=== PATIENT | male | born 1955 | race Caucasian/White ===

== ENCOUNTER 2018-01-05 17:22 | Inpatient (IN) | payer OTHER ==
--- NOTE | 2018-01-05 17:37 | PDOC ---
Rapid Medical Evaluation Chief Complaint: Wound Time Seen by Provider: 01/05/18 17:26 Medical Evaluation: Allergies Allergy/AdvReac Type Severity Reaction Status Date / Time No Known Allergies Allergy Verified 01/05/18 17:27 01/05/18 17:28 Pt presents with cough from hyperbaric chamber. States the cough has been going on for two months . Pt also with worsening R foot wound Exam: Towel covering R foot, Oral temp 100.2. HR 99 Orders: Labs, EKG, CXR, wound culture, urine, iv insert Pt to proceed to ED for further evaluation Discharge Disposition - Diagnosis Cough, Diabetic foot ulcers, Fever - Referrals - Patient Instructions - Post Discharge Activity
[2018-01-05 17:41] VITALS: BMI 27.7
[2018-01-05 18:16] LABS: BASO % 0.5 % (0-2.0); EOS % 0.2 % (0-4.5); HEMATOCRIT 33.3 % (35.4-49); HEMOGLOBIN 11.2 GM/dL (11.7-16.9); MCH 27.3 pg (25.7-33.7); MCHC 33.6 g/dl (32.0-35.9); MEAN CELL VOLUME 81.4 fl (80-96); MEAN PLT VOLUME 8.7 fl (7.5-11.1); MONO % 8.7 % (3.8-10.2); NEUT % 82.6 % (42.8-82.8); PLATELET COUNT 433 K/MM3 (134-434); RDW 14.1 % (11.9-15.9); WHITE BLOOD COUNT 13.3 K/mm3 (4.0-10.0)
[2018-01-05 18:24] LABS: INR 1.16 (0.83-1.09); PROTHROMBIN TIME (PATIENT) 13.1 SEC (9.7-13.0)
[2018-01-05 18:32] LABS: ALK PHOS 84 U/L (45-117); ANION GAP 10 MMOL/L (8-16); BILIRUBIN,TOTAL 0.3 mg/dL (0.2-1.0); BLOOD UREA NITROGEN 17 mg/dL (7-18); CALCIUM 8.5 mg/dL (8.5-10.1); CHLORIDE 99 mmol/L (98-107); CO2 25 mmol/L (21-32); CREATININE 0.7 mg/dL (0.7-1.3); GLUCOSE,RANDOM 149 mg/dL (74-106); POTASSIUM 4.4 mmol/L (3.5-5.1); SGOT/AST 10 U/L (15-37); SGPT/ALT 15 U/L (12-78); SODIUM 134 mmol/L (136-145); TOT PROT 7.8 g/dl (6.4-8.2)
--- NOTE | 2018-01-05 20:23 | PDOC ---
Attending Attestation - [facility] HPI: 01/05/18 20:48 Patient is a 62 year old male with a significant past medical history of IDDM and neuropathy who presents to the ED with complaints of chronic right lower extremity foot wounds that began to develop earlier this month. Patient reports experiencing chronic wound on his right foot that he states has been gradually increasing in warmth and erythema over time prompting him to go to the wound care center for it. He reports wound care center advising him to come into the ED for further evaluation of the extremity. Patient reports experiencing associated symptoms of low grade fever of 100.2 and non productive cough. Denies chest pain, Sob. Denies nausea, vomiting. Denies fevers, chills. Denies Contact with sick individuals, out of state travelling. Denies dysuria, hematuria. Denies constipation, diarrhea. Denies any other Allergies: None Social history: No smoking. No alcohol. No illicit drugs. Surgical history: None PMD: None - Physicial Exam PE: 01/06/18 01:46 GENERAL: Well developed, well nourished. Awake and alert. No acute distress. HEENT: Normocephalic, atraumatic. Hearing grossly normal. Moist mucous membranes. PERRLA, EOMI. No conjunctival pallor. Sclera are non-icteric. NECK: Supple. Full ROM. No JVD. CARDIOVASCULAR: Regular rate and rhythm. No murmurs, rubs, or gallops. Distal pulses are 2+ and symmetric. PULMONARY: No evidence of respiratory distress. Lungs clear to auscultation bilaterally. No wheezing, rales or rhonchi. ABDOMINAL: Soft. Non-tender. Non-distended. No rebound or guarding. GENITOURINARY: No CVA tenderness bilaterally. MUSCULOSKELETAL: Normal range of motion at all joints. No bony deformities or tenderness. EXTREMITIES: R foot with 3 foot wounds, stage 2-3, all 1-2cm's in diameter. 3+ pitting edema in R LE w/ calf tenderness. No cyanosis. No clubbing. SKIN: Warm and dry. Normal capillary refill. No rashes. No jaundice. NEUROLOGICAL: Alert, awake, appropriate. Cranial nerves 2-12 intact. Normal speech. Gait is normal without ataxia. PSYCHIATRIC: Cooperative. Good eye contact. Appropriate mood and affect. <John Zelaya - Last Filed: 01/06/18 01:46> - Resident Resident Name: Alvin Davidson - ED Attending Attestation I have performed the following: I have examined & evaluated the patient, The case was reviewed & discussed with the resident, I agree w/resident's findings & plan, Exceptions are as noted - Medical Decision Making 01/06/18 03:00 Pt admitted for further evaluation and care <Jacob Gomez - Last Filed: 01/06/18 03:01>
[2018-01-05] MEDS ORDERED: PIPERACILLIN/TAZOB 3.375 GM 3.375 GM in DEXTROSE 5%-WATER - 50 ML IVPB ONE (20:25)
[2018-01-05] MEDS ORDERED: SODIUM CHLORIDE 0.9% 1000 ML INFUS.BAG IV ONE (20:25)
[2018-01-05] MEDS ORDERED: VANCOMYCIN 1,000 MG in DEXTROSE 5%-WATER - 250 ML IVPB ONE (20:25)
[2018-01-05 20:47] LABS: URINE APPEARANCE CLEAR; URINE BILIRUBIN NEGATIVE (<2.0 mg/dL); URINE COLOR YELLOW; URINE GLUCOSE (UA) 2+ (NEGATIVE); URINE KETONE TRACE (NEGATIVE); URINE LEUK ESTERASE NEGATIVE (NEGATIVE); URINE NITRITE NEGATIVE (NEGATIVE); URINE PROTEIN NEGATIVE (NEGATIVE); URINE UROBILINOGEN NEGATIVE mg/dL (0.2-1.0)
--- NOTE | 2018-01-05 20:58 | PDOC ---
History of Present Illness - General Chief Complaint: Wound Stated Complaint: FEVER Time Seen by Provider: 01/05/18 17:26 History Source: Patient Exam Limitations: No Limitations - History of Present Illness Initial Comments: 01/05/18 20:57 The patient is a 62M with a PMH of DM, chronic R foot wounds, and neuropathy who presents to the ER with complaints of cough and fever. The patient states that he's had a cough x 1 month which he tried 2 medications for which he is unsure about, but the cough "came back with a vengeance". He states that he was going to his hyperbarics appointment today when they took his vitals and noted a fever of 101.2 and they sent him to the ER. He has chronic R foot wounds which he states he is unsure of the status of. He admits to fever, chills, SOB but denies CP, nausea, vomiting, abdominal pain and throat pain. Past History - Past Medical History Allergies/Adverse Reactions: Allergies Allergy/AdvReac Type Severity Reaction Status Date / Time No Known Allergies Allergy Verified 01/05/18 17:27 Home Medications: Ambulatory Orders Insulin Glargine,Hum.rec.anlog [Basaglar Kwikpen U-100] 42 units SQ HS 01/01/18 Lactobacillus Acidophilus [Bacid -] 1 cap PO BID 01/01/18 Omeprazole Magnesium [Prilosec Otc] 20 mg PO DAILY 01/01/18 Acetaminophen [Tylenol] 650 mg PO Q6H PRN 01/05/18 Ascorbic Acid [Vitamin C] 500 mg PO DAILY 01/05/18 Azelastine HCl 137 mcg NS BID 01/05/18 Cranberry Fruit Extract [Cranberry] 405 mg PO DAILY 01/05/18 Insulin Lispro [Admelog Solostar] 0 unit SQ ASDIR 01/05/18 Mag Hydrox/Al Hydrox/Simeth [Mylanta *Suspension*] 30 ml PO Q6H PRN 01/05/18 Multivitamin [One Daily] 1 each PO DAILY 01/05/18 COPD: No DVT: No Diabetes: Yes HTN: Yes Other medical history: RT HEARING LOSS - Immunization History Immunization Up to Date: Yes - Suicide/Smoking/Psychosocial Hx Smoking History: Never smoked Hx Alcohol Use: No Drug/Substance Use Hx: No Substance Use Type: None Review of Systems - Review of Systems Able to Perform ROS?: Yes Comments:: 01/05/18 23:19 GENERAL/CONSTITUTIONAL: Positive for fever and chills. No weakness. HEAD, EYES, EARS, NOSE AND THROAT: No change in vision. No ear pain or discharge. No sore throat. CARDIOVASCULAR: No chest pain, palpitations, or lightheadedness. RESPIRATORY: Positive for SOB. No cough, wheezing, or hemoptysis. GASTROINTESTINAL: No nausea, vomiting, diarrhea, constipation, or abdominal pain. GENITOURINARY: No dysuria, frequency, hematuria, or change in urination. MUSCULOSKELETAL: Positive for R foot chronic wounds. No joint or muscle swelling or pain. No neck or back pain. SKIN: See MSK. NEUROLOGIC: Positive for chronic stocking glove numbness. No headache, tingling , weakness, loss of consciousness, or change in strength/sensation. ENDOCRINE: No increased thirst. No abnormal weight change. HEMATOLOGIC/LYMPHATIC: No anemia, easy bleeding, or history of blood clots. ALLERGIC/IMMUNOLOGIC: No hives or skin allergy. Is the patient limited Lithuanian proficient: No *Physical Exam - Vital Signs Last Vital Signs Temp Pulse Resp BP Pulse Ox 99.5 F 132 H 18 138/80 96 01/05/18 20:33 01/05/18 20:33 01/05/18 20:33 01/05/18 20:33 01/05/18 20:33 - Physical Exam Comments: 01/05/18 23:23 GENERAL: Well developed, well nourished. Awake and alert. No acute distress. HEENT: Normocephalic, atraumatic. Hearing grossly normal. Moist mucous membranes. PERRLA, EOMI. No conjunctival pallor. Sclera are non-icteric. NECK: Supple. Full ROM. No JVD. CARDIOVASCULAR: Regular rate and rhythm. No murmurs, rubs, or gallops. Distal pulses are 2+ and symmetric. PULMONARY: No evidence of respiratory distress. Lungs clear to auscultation bilaterally. No wheezing, rales or rhonchi. ABDOMINAL: Soft. Non-tender. Non-distended. No rebound or guarding. GENITOURINARY: No CVA tenderness bilaterally. MUSCULOSKELETAL: Normal range of motion at all joints. No bony deformities or tenderness. EXTREMITIES: R foot with 3 foot wounds, stage 2-3, all 1-2cm's in diameter. 3+ pitting edema in R LE w/ calf tenderness. No cyanosis. No clubbing. SKIN: Warm and dry. Normal capillary refill. No rashes. No jaundice. NEUROLOGICAL: Alert, awake, appropriate. Cranial nerves 2-12 intact. Normal speech. Gait is normal without ataxia. PSYCHIATRIC: Cooperative. Good eye contact. Appropriate mood and affect. ED Treatment Course - LABORATORY CBC & Chemistry Diagram: 01/05/18 17:56 01/05/18 17:56 - ADDITIONAL ORDERS Additional order review: Laboratory Results 01/05/18 01/05/18 01/05/18 17:56 17:56 17:56 PT with INR INR Sodium Potassium Chloride Carbon Dioxide Anion Gap BUN Creatinine Creat Clearance w eGFR Random Glucose Lactic Acid 1.4 Calcium Total Bilirubin AST ALT Alkaline Phosphatase Creatine Kinase 53 Troponin I < 0.02 Total Protein Albumin Blood Type A NEGATIVE Antibody Screen Negative 01/05/18 01/05/18 17:56 17:56 PT with INR 13.10 H INR 1.16 H Sodium 134 L Potassium 4.4 Chloride 99 Carbon Dioxide 25 Anion Gap 10 BUN 17 Creatinine 0.7 Creat Clearance w eGFR > 60 Random Glucose 149 H Lactic Acid Calcium 8.5 Total Bilirubin 0.3 AST 10 L ALT 15 Alkaline Phosphatase 84 Creatine Kinase Troponin I Total Protein 7.8 Albumin 3.0 L Blood Type Antibody Screen 01/05/18 17:56 RBC 4.10 MCV 81.4 MCHC 33.6 RDW 14.1 MPV 8.7 Neutrophils % 82.6 Lymphocytes % 8.0 Monocytes % 8.7 Eosinophils % 0.2 Basophils % 0.5 - RADIOLOGY Radiology Studies Ordered: Category Date Time Status DUPLEX VASCUL US-1 LEG [US] Stat Ultrasound 01/05/18 20:48 Ordered Medical Decision Making - Medical Decision Making 01/05/18 23:03 The patient is a 62M with a PMH of DM and chronic R foot wounds who presents to the ER for fever. The patient has a swollen leg and wounds w/ drainage concern for infection vs DVT. EKG shows sinus tach and w/ pt's complaint of SOB I am also concerned for PE. Pt initially refused U/S because he said he "wants to ". I have convinced him of the US. Pending imaging. Giving broad spectrum abx and fluids. I have endorsed the patient to Dr. Lama for admission. *DC/Admit/Observation/Transfer Diagnosis at time of Disposition: Cough Diabetic foot ulcers Qualifiers: Diabetic foot ulcer location: heel Diabetes mellitus type: type 2 Laterality: right Non-pressure ulcer stage: with other severity Qualified Code(s): E11.621 - Type 2 diabetes mellitus with foot ulcer Fever Qualifiers: Fever type: unspecified Qualified Code(s): R50.9 - Fever, unspecified - Discharge Dispostion Condition at time of disposition: Guarded Decision to Admit order: Yes - Referrals - Patient Instructions - Post Discharge Activity
[2018-01-05] MEDS ORDERED: ACETAMINOPHEN 325 MG TABLET (FP) PO PRN (22:55)
[2018-01-05] MEDS ORDERED: MAG HYDROX/AL HYDROX/SIMETH 30 ML UNIT-DOSE CUP PO PRN (22:57)
[2018-01-05] MEDS ORDERED: VANCOMYCIN 1 GRAM (PRE-DOCKED) 1,000 MG/250 ML BAG IVPB ONE (22:58)
[2018-01-05] MEDS ORDERED: PIPERACILLIN/TAZOB 3.375 GM 3.375 GM/50 ML BAG IVPB ONE (22:58)
[2018-01-05] MEDS ORDERED: SODIUM CHLORIDE 1,000 ML IV SCH (23:00)
[2018-01-05] MEDS ORDERED: VANCOMYCIN 1,250 MG in DEXTROSE 5%-WATER - 250 ML IVPB SCH (23:15)
--- NOTE | 2018-01-05 23:55 | PN ---
Teaching Attending Note Name of Resident: Jorge Lama ATTENDING PHYSICIAN STATEMENT I saw and evaluated the patient. I reviewed the resident's note and discussed the case with the resident. I agree with the resident's findings and plan as documented. SUBJECTIVE: Patient is a 62 year old man with a significant past medical history of insulin- treated DM, right foot osteomyelitis with digit amputations, neuropathy, right ear hearing impairment, right foot ulcers who presents to the ER with complaints of chronic right lower extremity foot wounds that began to develop earlier this month. Patient reports experiencing chronic wound on his right foot that he states has been gradually increasing in warmth and erythema over time prompting him to go to the wound care center for it. He reports wound care center advising him to come into the ER for further evaluation of the extremity. Recently treated with oral antibiotics and has been getting hyperbaric therapy. Patient reports experiencing associated symptoms of low grade fever of 100.2 and non productive cough for two months. OBJECTIVE: Alert Vital Signs Period Temp Pulse Resp BP Sys/Campos Pulse Ox Last 24 Hr 99.5 F-100.2 F 121-132 16-18 138-142/69-80 96-97 HEENT: No Jaundice, eye redness or discharge, PERRLA, EOMI. Normocephalic, atraumatic. External ears are normal; reduced hearing in right ear. No nasal discharge. Neck: Supple, nontender. No palpable adenopathy or thyromegaly. No JVD Chest: Good effort. Clear to auscultation and percussion. Heart: Regular. No S3, rub or murmur Abdomen: Not distended, soft, nontender and no HSM. No rebound or guarding. Normoactive bowel sounds. Ext: Diminished peripheral pulses. Disfigured right foot. Multiple digit amputations on right foot as well as ulcers on heel, plantar surface and lateral aspects of foot - with drainage. Leg edema. Skin: Warm and dry. No petechiae, rash or ecchymosis. Neuro: Alert. Oriented x3. CN 2-12 grossly intact. Sensation grossly intact in all four extremities and DTR are symmetric. Current Medications Generic Name Dose Route Start Last Admin Trade Name Freq PRN Reason Stop Dose Admin Acetaminophen 650 mg 01/05/18 22:55 Tylenol - PO Q4H PRN fever Al Hydroxide/Mg Hydroxide 30 ml 01/05/18 22:57 Mylanta Oral Suspension - PO Q6H PRN DYSPEPSIA Ascorbic Acid 500 mg 01/06/18 10:00 Vitamin C - PO DAILY [facility] Sodium Chloride 1,000 mls @ 83 mls/hr 01/05/18 23:00 Normal Saline - IV 01/06/18 11:03 ASDIR SONI Vancomycin HCl 1,250 mg/ 250 mls @ 166.667 mls/hr 01/05/18 23:15 Dextrose IVPB 01/06/18 00:44 Q12H SONI Protocol Piperacillin Sod/Tazobactam 50 mls @ 100 mls/hr 01/06/18 03:00 Sod 3.375 gm/ Dextrose IVPB 01/06/18 09:29 Q6H-IV SONI Protocol Vancomycin HCl 1,250 mg/ 250 mls @ 166.667 mls/hr 01/06/18 11:00 Dextrose IVPB Q12H SONI Protocol Piperacillin Sod/Tazobactam 50 mls @ 100 mls/hr 01/06/18 15:00 Sod 3.375 gm/ Dextrose IVPB Q6H-IV [facility] Protocol Insulin Aspart 1 vial 01/06/18 07:00 Novolog Vial Sliding Scale - SQ ACHS [facility] Protocol Non-Formulary Medication 137 mcg 01/06/18 10:00 Azelastine Hcl [Azelastine Hcl] NS BID [facility] Pantoprazole Sodium 20 mg 01/06/18 10:00 Protonix - PO DAILY [facility] Home Medications Medication Instructions Recorded Insulin Glargine,Hum.rec.anlog 42 units SQ HS 01/01/18 [Basaglar Kwikpen U-100] Lactobacillus Acidophilus [Bacid -] 1 cap PO BID 01/01/18 Omeprazole Magnesium [Prilosec Otc] 20 mg PO DAILY 01/01/18 Acetaminophen [Tylenol] 650 mg PO Q6H PRN 01/05/18 Ascorbic Acid [Vitamin C] 500 mg PO DAILY 01/05/18 Azelastine HCl 137 mcg NS BID 01/05/18 Cranberry Fruit Extract [Cranberry] 405 mg PO DAILY 01/05/18 Insulin Lispro [Admelog Solostar] 0 unit SQ ASDIR 01/05/18 Mag Hydrox/Al Hydrox/Simeth 30 ml PO Q6H PRN 01/05/18 [Mylanta *Suspension*] Multivitamin [One Daily] 1 each PO DAILY 01/05/18 Abnormal Lab Results 01/05/18 01/05/18 01/05/18 17:56 17:56 17:56 WBC 13.3 H Hgb 11.2 L Hct 33.3 L Absolute Neuts (auto) 11.0 H PT with INR 13.10 H INR 1.16 H Sodium 134 L Random Glucose 149 H AST 10 L Albumin 3.0 L Urine Glucose (UA) Urine Ketones 01/05/18 20:30 WBC Hgb Hct Absolute Neuts (auto) PT with INR INR Sodium Random Glucose AST Albumin Urine Glucose (UA) 2+ H Urine Ketones Trace H ASSESSMENT AND PLAN: 1. Infected diabetic foot ulcers - Right foot xray shows metatarsal dislocation , bone erosion and lytic lesions. Wound and blood cultures done. Getting vanco and zosyn. Get MRI to confirm osteomyelytis. Consult ID and podiatry. Cause of chronic cough is unclear. Get ECHO; telemetry monitory to rule out paroxysmal arrhythmia. 2. Hypoalbuminemia - Possibly due to combined effects of malnutrition and inflammation associated with chronic infected leg ulcers. Will ensure adequate dietary protein intake and also consult sterilisation technician. 3. DM - For now, we will hold the home diabetes drugs and implement sliding scale insulin regimen. Provide comprehensive diabetes care with patient teaching and counseling about the importance of euglycemia, eye care and foot care. 4. Anemia - Likely multifactorial. Will do basic anemia work up including serial stool guaiacs, reticulocyte count and iron studies. 5. DVT prophylaxis - Lovenox 40 mg SQ q 24 hours. 6. Advance directives - Full code
--- NOTE | 2018-01-06 00:04 | HP ---
CHIEF COMPLAINT: chills HISTORY OF PRESENT ILLNESS: 62 year old male with a hx of diabetes mellitus, multiple R foot ulcers, neuropathy, s/p 3 toe amputations (1,3,4), R foot osteomyelitis presents for chills, cough, shortness of breath, and fever of 101 during his hyperbaric oxygen appointment today. He states that he has purulent drainage of his lateral foot ulcer without any pain. Patient sees Dr. Rosales as an outpatient for treatment of his R foot ulcers. Reports that his first amputation was in April 2016 and has had 2 more since then, constantly having issues with his R foot. He reports that he has a cough that has been going on for around 2 months and is productive of a small amount of sputum. He reports chest congestion, headache. He states that his ear has been "bothering" him yesterday and that he has been having occasional blurry vision for 3 months. Additionally , He states he was on an antibiotic for 1 week that ended 4 days ago, but cannot remember which one. Denies chest pain, nausea, vomiting diarrhea, abdominal pain. Patient has never had a colonoscopy. ER course was notable for: (1) WBC 13.3 (2) foot XR: + for bony destruction and soft tissue swelling consistent with osteomyelitis (3) Recent Travel: denies PAST MEDICAL HISTORY: diabetes mellitus, multiple R foot ulcers, neuropathy, s/ p 3 toe amputations (1,3,4), R foot osteomyelitis PAST SURGICAL HISTORY: amputation of R toes 1,3,4, tonsillectomy Social History: Smoking: denies Alcohol: denies Drugs: denies Family History: mother with diabetes Allergies No Known Allergies Allergy (Verified 01/05/18 17:27) HOME MEDICATIONS: Home Medications Medication Instructions Recorded Insulin Glargine,Hum.rec.anlog 42 units SQ HS 01/01/18 [Basaglar Richardpen U-100] Lactobacillus Acidophilus [Bacid -] 1 cap PO BID 01/01/18 Omeprazole Magnesium [Prilosec Otc] 20 mg PO DAILY 01/01/18 Acetaminophen [Tylenol] 650 mg PO Q6H PRN 01/05/18 Ascorbic Acid [Vitamin C] 500 mg PO DAILY 01/05/18 Azelastine HCl 137 mcg NS BID 01/05/18 Cranberry Fruit Extract [Cranberry] 405 mg PO DAILY 01/05/18 Insulin Lispro [Admelog Solostar] 0 unit SQ ASDIR 01/05/18 Mag Hydrox/Al Hydrox/Simeth 30 ml PO Q6H PRN 01/05/18 [Mylanta *Suspension*] Multivitamin [One Daily] 1 each PO DAILY 01/05/18 REVIEW OF SYSTEMS CONSTITUTIONAL: fever, chills Absent: diaphoresis, generalized weakness, malaise, loss of appetite, weight change HEENT: Absent: rhinorrhea, nasal congestion, throat pain, throat swelling, difficulty swallowing, mouth swelling, ear pain, eye pain, visual changes CARDIOVASCULAR: Absent: chest pain, syncope, palpitations, irregular heart rate, lightheadedness , peripheral edema RESPIRATORY: cough, shortness of breath Absent: dyspnea with exertion, orthopnea, wheezing, stridor, hemoptysis GASTROINTESTINAL: Absent: abdominal pain, abdominal distension, nausea, vomiting, diarrhea, constipation, melena, hematochezia GENITOURINARY: Absent: dysuria, frequency, urgency, hesitancy, hematuria, flank pain, genital pain MUSCULOSKELETAL: joint swelling Absent: myalgia, arthralgia, back pain, neck pain SKIN: Absent: rash, itching, pallor HEMATOLOGIC/IMMUNOLOGIC: Absent: easy bleeding, easy bruising, lymphadenopathy, frequent infections ENDOCRINE: Absent: unexplained weight gain, unexplained weight loss, heat intolerance, cold intolerance NEUROLOGIC: Absent: headache, focal weakness or paresthesias, dizziness, unsteady gait, seizure, mental status changes, bladder or bowel incontinence PSYCHIATRIC: Absent: anxiety, depression, suicidal or homicidal ideation, hallucinations. PHYSICAL EXAMINATION Vital Signs - 24 hr 01/05/18 01/05/18 17:28 20:33 Temperature 100.2 F H 99.5 F Pulse Rate 121 H Pulse Rate [ 132 H Radial] Respiratory 16 18 Rate Blood Pressure 142/69 Blood Pressure 138/80 [Left Arm] O2 Sat by Pulse 97 96 Oximetry (%) GENERAL: A&Ox3, no acute distress EYES: PERRLA, EOMI ENT: Moist mucus membranes NECK: No JVD LUNGS: CTA, no wheezes HEART: tachycardic but regular, no murmurs ABDOMEN: Soft, nontender, BS present MUSCULOSKELETAL: No CVA Tenderness EXTREMITIES: 1+ pulses bilaterally, R foot has 3 ulcers, an inferior heel ulcer 2x2cm healing and not draining, an inferior ulcer of the distal, plantar R foot that is deep but not draining any fluid, and a lateral R foot ulcer draining small amount of purulent fluid, no calf tenderness NEUROLOGICAL: Cranial nerves II-XII intact. Sensation decreased in b/l legs below the ankle Laboratory Results - last 24 hr 01/05/18 01/05/18 01/05/18 17:56 17:56 17:56 WBC 13.3 H RBC 4.10 Hgb 11.2 L Hct 33.3 L MCV 81.4 MCH 27.3 MCHC 33.6 RDW 14.1 Plt Count 433 MPV 8.7 Absolute Neuts (auto) 11.0 H Neutrophils % 82.6 Lymphocytes % 8.0 Monocytes % 8.7 Eosinophils % 0.2 Basophils % 0.5 Nucleated RBC % 0 PT with INR 13.10 H INR 1.16 H Sodium 134 L Potassium 4.4 Chloride 99 Carbon Dioxide 25 Anion Gap 10 BUN 17 Creatinine 0.7 Creat Clearance w eGFR > 60 Random Glucose 149 H Lactic Acid Calcium 8.5 Total Bilirubin 0.3 AST 10 L ALT 15 Alkaline Phosphatase 84 Creatine Kinase Troponin I Total Protein 7.8 Albumin 3.0 L Urine Color Urine Appearance Urine pH Ur Specific Seltzer Urine Protein Urine Glucose (UA) Urine Ketones Urine Blood Urine Nitrite Urine Bilirubin Urine Urobilinogen Ur Leukocyte Esterase Blood Type Antibody Screen 01/05/18 01/05/18 01/05/18 17:56 17:56 17:56 WBC RBC Hgb Hct MCV MCH MCHC RDW Plt Count MPV Absolute Neuts (auto) Neutrophils % Lymphocytes % Monocytes % Eosinophils % Basophils % Nucleated RBC % PT with INR INR Sodium Potassium Chloride Carbon Dioxide Anion Gap BUN Creatinine Creat Clearance w eGFR Random Glucose Lactic Acid 1.4 Calcium Total Bilirubin AST ALT Alkaline Phosphatase Creatine Kinase 53 Troponin I < 0.02 Total Protein Albumin Urine Color Urine Appearance Urine pH Ur Specific Seltzer Urine Protein Urine Glucose (UA) Urine Ketones Urine Blood Urine Nitrite Urine Bilirubin Urine Urobilinogen Ur Leukocyte Esterase Blood Type A NEGATIVE Antibody Screen Negative 01/05/18 20:30 WBC RBC Hgb Hct MCV MCH MCHC RDW Plt Count MPV Absolute Neuts (auto) Neutrophils % Lymphocytes % Monocytes % Eosinophils % Basophils % Nucleated RBC % PT with INR INR Sodium Potassium Chloride Carbon Dioxide Anion Gap BUN Creatinine Creat Clearance w eGFR Random Glucose Lactic Acid Calcium Total Bilirubin AST ALT Alkaline Phosphatase Creatine Kinase Troponin I Total Protein Albumin Urine Color Yellow Urine Appearance Clear Urine pH 6.0 Ur Specific Seltzer 1.014 Urine Protein Negative Urine Glucose (UA) 2+ H Urine Ketones Trace H Urine Blood Negative Urine Nitrite Negative Urine Bilirubin Negative Urine Urobilinogen Negative Ur Leukocyte Esterase Negative Blood Type Antibody Screen EKG -sinus tachycardia rate 119 IMAGING CXR: clear R Foot XR: + for osteomyelitis with bony destruction and soft tissue swelling ASSESSMENT/PLAN: 62 year old male with a hx of diabetes mellitus, multiple R foot ulcers, neuropathy, s/p 3 toe amputations (1,3,4), R foot osteomyelitis presents for chills, fevers, wound drainage and cough and is admitted for sepsis 2/2 likely osteomyelitis #Sepsis 2/2 R foot ulcer and osteomyelitis: patient has 3 ulcers with the left lateral ulcer draining purulent fluid and has a history of osteomyelitis, will continue workup for osteomyelitis -WBC 13.3 and tachycardic -XR suggests osteomyelitis with bony destruction and soft tissue swelling -vancomycin/zosyn ordered -wound culture -blood culture -fluids w/ NS @ 83cc/hr -ID consulted -Dr. Rosales consulted -MRI of R lower extremity ordered with gadolinium contrast -RLE US negative for DVT #Cough: likely 2/2 postnasal drip vs upper respiratory tract infection vs less likely pneumonia -sputum culture -HIV test -CXR clear -continue abx with vanc/zosyn for now -legionella urine -cold agglutinins -robitussin ordered -echo ordered -repeat EKG in morning -cards consult for CHF investigation, although less likely given clinical presentation #Diabetes Mellitus: patient is on 42U of long acting insulin at home before bedtime, will not restart such a high dose at the moment and will start 30U at night with additional sliding scale coverage -start levemir 30U before bedtime -BGMs ACHS -ISS #Anemia: has not been worked up in the past, it is a normocytic, normochronic anemia that could be due to anemia of chronic inflammation from osteomyelitis/ diabetes vs. GI blood loss-related -reticulocyte count -stool for occult blood -iron studies -repeat CBC in AM #FEN -NS @ 83cc/hr -lytes wnl -diabetic diet #Prophylaxis -lovenox prophylaxis #Disposition -admit telemetry Visit type - Emergency Visit Emergency Visit: Yes ED Registration Date: 08/21/18 Care time: The patient presented to the Emergency Department on the above date and was hospitalized for further evaluation of their emergent condition. - New Patient This patient is new to me today: Yes Date on this admission: 01/06/18 - Critical Care Critical Care patient: No Hospitalist Screening - Colonoscopy Questionnaire Colonoscopy Questionnaire: Colonoscopy Questionnaire - Patient: 50 - 75 years old and never had a screening colonoscopy: Yes History of colon or rectal polyps, or CA: Unknown History of IBD, Crohn's disease or UC: Unknown History of abdominal radiation therapy as a child: Unknown - Relative: 1 with colon or rectal CA, or polyps at age 60 or younger: Unknown Colon or rectal CA diagnosed at age 45 or younger: Unknown Multiple relatives with colon or rectal CA: Unknown - Outcome: Screening Result: Positive Screen
[2018-01-06] MEDS ORDERED: VANCOMYCIN 500 MG VIAL (RESTRICTED TO ID ONLY) ONE (00:14)
[2018-01-06] MEDS ORDERED: guaiFENesin 200 MG/10 ML 10 ML UNIT-DOSE CUPS ONE (00:21)
[2018-01-06] MEDS: guaiFENesin/D-M SUGAR-FREE/ACLHOL-FREE 118 ML BOTTLE PO PRN ×2 (00:22→23:28)
[2018-01-06] MEDS ORDERED: PIPERACILLIN/TAZOBACTAM 3.375 GM VIAL IVPB ONE ×4 (03:48→23:15)
[2018-01-06] MEDS ORDERED: DEXTROSE 5%-WATER - 50 ML IVPB ONE ×4 (03:49→23:16)
[2018-01-06] MEDS: PIPERACILLIN/TAZOB 3.375 GM 3.375 GM in DEXTROSE 5%-WATER - 50 ML IVPB SCH ×3 (04:14→21:25)
[2018-01-06 07:01] LABS: HEMATOCRIT 31.7 % (35.4-49); HEMOGLOBIN 10.4 GM/dL (11.7-16.9); MCH 26.7 pg (25.7-33.7); MCHC 32.9 g/dl (32.0-35.9); MEAN CELL VOLUME 81.2 fl (80-96); MEAN PLT VOLUME 8.2 fl (7.5-11.1); PLATELET COUNT 356 K/MM3 (134-434); RDW 13.9 % (11.9-15.9)
[2018-01-06] MEDS: INSULIN SLIDING SCALE (NOVOLOG) 1 VIAL SQ SCH ×4 (07:06→18:28)
[2018-01-06] MEDS ORDERED: INSULIN (NOVOLOG) ASPART 100 UNITS/ML 10ML VIAL ONE ×2 (07:10→11:13)
[2018-01-06] MEDS ORDERED: INSULIN (LEVEMIR) 100 UNITS/ML UNITS SQ ONE (07:10)
[2018-01-06 07:35] LABS: ANION GAP 10 MMOL/L (8-16); BLOOD UREA NITROGEN 12 mg/dL (7-18); CALCIUM 8.3 mg/dL (8.5-10.1); CHLORIDE 103 mmol/L (98-107); CO2 25 mmol/L (21-32); CREATININE 0.7 mg/dL (0.7-1.3); GLUCOSE,RANDOM 203 mg/dL (74-106); MAGNESIUM 1.9 mg/dL (1.8-2.4); POTASSIUM 3.8 mmol/L (3.5-5.1); SODIUM 138 mmol/L (136-145)
[2018-01-06] MEDS: PANTOPRAZOLE 20 MG TABLET (FP) PO SCH (09:07)
[2018-01-06] MEDS: ASCORBIC ACID 500 MG TABLET (FP) PO SCH (09:07)
--- NOTE | 2018-01-06 09:41 | CON.CARD ---
Consult Consult Specialty:: cardiology - History of Present Illness History of Present Illness: Patient is a 62 year old male with a significant past medical history of IDDM and neuropathy who presents to the ED with complaints of chronic right lower extremity foot wounds that began to develop earlier this month. Patient reports experiencing chronic wound on his right foot that he states has been gradually increasing in warmth and erythema over time prompting him to go to the wound care center for it. He reports wound care center advising him to come into the ED for further evaluation of the extremity. Patient reports experiencing associated symptoms of low grade fever of 100.2 and non productive cough. Denies chest pain, Sob. Denies nausea, vomiting. Denies fevers, chills. Denies Contact with sick individuals, out of state travelling. Denies dysuria, hematuria. Denies constipation, diarrhea. Denies any other Allergies: None Social history: No smoking. No alcohol. No illicit drugs. Surgical history: None PMD: None - History Source History Provided By: Patient, Medical Record - Alcohol/Substance Use Hx Alcohol Use: No - Smoking History Smoking history: Never smoked Home Medications - Allergies Allergies/Adverse Reactions: Allergies Allergy/AdvReac Type Severity Reaction Status Date / Time No Known Allergies Allergy Verified 01/05/18 17:27 - Home Medications Home Medications: Ambulatory Orders Insulin Glargine,Hum.rec.anlog [Basaglbeverley Chilel U-100] 42 units SQ HS 01/01/18 Lactobacillus Acidophilus [Bacid -] 1 cap PO BID 01/01/18 Omeprazole Magnesium [Prilosec Otc] 20 mg PO DAILY 01/01/18 Acetaminophen [Tylenol] 650 mg PO Q6H PRN 01/05/18 Ascorbic Acid [Vitamin C] 500 mg PO DAILY 01/05/18 Azelastine HCl 137 mcg NS BID 01/05/18 Cranberry Fruit Extract [Cranberry] 405 mg PO DAILY 01/05/18 Insulin Lispro [Admelog Solostar] 0 unit SQ ASDIR 01/05/18 Mag Hydrox/Al Hydrox/Simeth [Mylanta *Suspension*] 30 ml PO Q6H PRN 01/05/18 Multivitamin [One Daily] 1 each PO DAILY 01/05/18 Vital Signs: Vital Signs Temperature 98.6 F 01/06/18 06:00 Pulse Rate 109 H 01/06/18 06:00 Respiratory Rate 20 08/22/18 06:00 Blood Pressure 142/86 01/06/18 06:00 O2 Sat by Pulse Oximetry (%) 95 01/06/18 01:31 - Other Data Labs, Other Data: CBC, BMP 01/06/18 06:30 01/06/18 06:30 INR, PTT INR 1.16 (0.83-1.09) H 01/05/18 17:56 Troponin, BNP 01/05/18 17:56 Troponin I < 0.02 Troponin, BNP 01/05/18 17:56 Troponin I < 0.02
[2018-01-06] MEDS ORDERED: PATIENT'S OWN MEDICATION (NON-FORMULARY) (Azelastine Hcl [Azelastine Hcl] 137 MCG) NS SCH (10:00)
--- NOTE | 2018-01-06 10:53 | PN ---
Physical Exam: SUBJECTIVE: Patient is a 62 y/o male with a history of diabetes, R foot ulcers s/p 3 toe amputation in 2016 2/2 to osteomyelitis, who presents with sepsis 2/2 to likely osteomyelitis. Patient reports he has a slight headache and feels weak but has no other complaints. No acute events overnight. OBJECTIVE: Vital Signs Temperature 98.6 F 01/06/18 06:00 Pulse Rate 109 H 01/06/18 06:00 Respiratory Rate 20 01/06/18 06:00 Blood Pressure 142/86 01/06/18 06:00 O2 Sat by Pulse Oximetry (%) 95 01/06/18 01:31 GENERAL: The patient is awake, alert, and fully oriented, in no acute distress. LUNGS: Breath sounds equal, clear to auscultation bilaterally HEART: Regular rate and rhythm, ABDOMEN: Soft, nontender, nondistended, normoactive bowel sounds,s. EXTREMITIES: patient refused examination of foot as it was wrapped SKIN: Warm, dry, normal turgor, no rashes or lesions noted CBC, BMP 01/06/18 06:30 01/06/18 06:30 Active Medications Acetaminophen (Tylenol -) 650 mg PO Q4H PRN PRN Reason: fever Al Hydroxide/Mg Hydroxide (Mylanta Oral Suspension -) 30 ml PO Q6H PRN PRN Reason: DYSPEPSIA Ascorbic Acid (Vitamin C -) 500 mg PO DAILY SONI Last Admin: 01/06/18 09:07 Dose: 500 mg Guaifenesin (Diabetic Tussin Dm -) 10 ml PO Q6H PRN PRN Reason: COUGH Last Admin: 01/06/18 00:22 Dose: 10 ml Sodium Chloride (Normal Saline -) 1,000 mls @ 83 mls/hr IV ASDIR SONI Stop: 01/06/18 11:03 Last Admin: 01/06/18 04:17 Dose: 83 mls/hr Vancomycin HCl 1,250 mg/ (Dextrose) 250 mls @ 166.667 mls/hr IVPB Q12H SONI; Protocol Piperacillin Sod/Tazobactam (Sod 3.375 gm/ Dextrose) 50 mls @ 100 mls/hr IVPB Q6H-IV SONI; Protocol Insulin Aspart (Novolog Vial Sliding Scale -) 1 vial SQ ACHS SONI; Protocol Last Admin: 01/06/18 07:06 Dose: 4 units Insulin Detemir (Levemir Vial) 30 units SQ HS SONI Non-Formulary Medication (Azelastine Hcl [Azelastine Hcl]) 137 mcg NS BID SONI Pantoprazole Sodium (Protonix -) 20 mg PO DAILY SONI Last Admin: 01/06/18 09:07 Dose: 20 mg ASSESSMENT/PLAN: Patient is a 62 y/o male with a history of diabetes, R foot ulcers s/p 3 toe amputation in 2016 2/2 to osteomyelitis, who presents with sepsis 2/2 to likely osteomyelitis. #sepsis 2/2 to possible osteo vs chronic wound - MRI of R LE ordered - Vancomycin 1.25 (day 2) - Zosyn 3.375( day 2) - f/u ID Dr. Mckeon - f/u Vascular, Dr. Rosales - xray of foot: bony destruction suggestive of osteomyelitis - Echo normal function #DM - ss - levemir 30 units hs #anemia - 2/2 to likely osteo, normocytic - f/u Iron studies #possible PVC's - f/u Dr. Bateman #DVT ppx - lovenox 40 sq Dispo: Visit type - Emergency Visit Emergency Visit: No - New Patient This patient is new to me today: Yes Date on this admission: 01/06/18 - Critical Care Critical Care patient: No
[2018-01-06] MEDS ORDERED: VANCOMYCIN 1,250 MG in DEXTROSE 5%-WATER - 250 ML IVPB SCH (11:00)
[2018-01-06] MEDS ORDERED: VANCOMYCIN 1,250 MG in DEXTROSE 5%-WATER - 250 ML IVPB ONE (12:00)
[2018-01-06 13:42] LABS: CHOLESTEROL 159 mg/dL (50-200); HDL CHOLESTEROL 38 mg/dL (40-60); TRIGLYCERIDES 98 mg/dL (35-160)
[2018-01-06] MEDS ORDERED: PIPERACILLIN/TAZOB 3.375 GM 3.375 GM in DEXTROSE 5%-WATER - 50 ML IVPB ONE (15:00)
--- NOTE | 2018-01-06 16:51 | ECHO ---
Name: SHELDON ROSA Exam:Adult Echocardiogram Study Date: 01/06/2018 08:16 AM Age: 62 yrs Reason For Study: R/O CHF Height: 71 in Weight: 199 lb BSA: 2.1 m2 MMode/2D Measurements & Calculations IVSd: 1.3 cm Ao root diam: 2.7 cm LVIDd: 4.6 cm LA dimension: 3.7 cm LVIDs: 3.1 cm LVPWd: 1.1 cm EDV(Teich): 96.5 ml LAV (MOD-bp): 37.7 ml ESV(Teich): 38.8 ml Doppler Measurements & Calculations MV E max jacob: 100.0 cm/sec Med Peak E' Jacob: 6.0 cm/sec MV A max jacob: 99.4 cm/sec Med E/e': 16.7 MV E/A: 1.0 Lat Peak E' Jacob: 9.0 cm/sec MV dec time: 0.22 sec Lat E/e': 11.1 Left Ventricle The left ventricle is normal in size. There is mild concentric left ventricular hypertrophy. The left ventricular ejection fraction is normal. Ejection Fraction = 65%. The transmitral spectral Doppler fl ow pattern is suggestive of impaired LV relaxation. The left ventricular wall motion is normal. Right Ventricle The right ventricular systolic function is normal. Atria Normal left and right atrial size and function. Mitral Valve There is trace mitral regurgitation. Tricuspid Valve There is trace tricuspid regurgitation. Great Vessels The aortic root is normal size. Pericardium/Pleura There is no pericardial effusion. Interpretation Summary The left ventricle is normal in size. Ejection Fraction = 65%. The transmitral spectral Doppler flow pattern is suggestive of impaired LV relaxation. The left ventricular wall motion is normal. There is mild concentric left ventricular hypertrophy. There is trace mitral regurgitation. The aortic root is normal size. There is no pericardial effusion. Barron Richey MD 01/06/2018 04:51 PM
[2018-01-06] MEDS ORDERED: PIPERACILLIN/TAZOB 3.375 GM 3.375 GM in DEXTROSE 5%-WATER - 50 ML IVPB SCH (19:15)
--- NOTE | 2018-01-06 19:15 | PN ---
Teaching Attending Note Name of Resident: Namita Vance ATTENDING PHYSICIAN STATEMENT I saw and evaluated the patient. I reviewed the resident's note and discussed the case with the resident. I agree with the resident's findings and plan as documented. SUBJECTIVE: No fever or chills. No pain in feet. upset about food and service. OBJECTIVE: NAD Cv : RRR, No JVD ABd: soft, NT, ND , NL BS EXt: R foot with 3 ulcers, with no drainage. lateral 5th metatarsal head, heel, and 1st metatarsal head. no tenderness. digit amputation slight erythema around heal wound . ASSESSMENT AND PLAN: 62 y/o man with h/o DM, right foot osteomyelitis with digit amputations, neuropathy, and chronic right foot ulcers who presented with increased drainage form wounds 1- Sepsis due to infected R foot diabetic wounds. - suspicion for OM , given bone destruction on xray - MRI pending - COnt zosyn for now , pending ID eval - Podiatry eval 2- DM : cont insulin at current dose. if needed can increased 3- Normocytic Anemia : could be anemia of chronci disease. iron studies pending 4- Chronic cough : unclear etiology. NL cxray. Echo with nl EF. not on any ARB/ ACEI. Not a smoker. No signs of fluid overload Might need further investigation as out pt mycoplasma pending 5- Tachycardia : likely due to sepsis. echo reviewed. HR nl now HLOC
--- NOTE | 2018-01-06 20:14 | EKG ---
Test Reason : Blood Pressure : / mmHG Vent. Rate : 102 BPM Atrial Rate : 102 BPM P-R Int : 156 ms QRS Dur : 092 ms QT Int : 334 ms P-R-T Axes : 056 -09 013 degrees QTc Int : 435 ms SINUS TACHYCARDIA WITH OCCASIONAL PREMATURE VENTRICULAR COMPLEXES INFERIOR INFARCT (CITED ON OR BEFORE 05-JAN-2018) ABNORMAL ECG WHEN COMPARED WITH ECG OF 05-JAN-2018 18:32, NO SIGNIFICANT CHANGE WAS FOUND Confirmed by VITA ROUSSEAU MD ([id number]) on 01/06/2018 8:14:21 PM Referred By: Ofe MEDINA Confirmed By:VITA ROUSSEAU MD
--- NOTE | 2018-01-06 20:20 | EKG ---
Test Reason : Blood Pressure : / mmHG Vent. Rate : 119 BPM Atrial Rate : 119 BPM P-R Int : 150 ms QRS Dur : 090 ms QT Int : 316 ms P-R-T Axes : 060 -03 019 degrees QTc Int : 444 ms SINUS TACHYCARDIA WITH OCCASIONAL PREMATURE VENTRICULAR COMPLEXES INFERIOR INFARCT , AGE UNDETERMINED ABNORMAL ECG NO PREVIOUS ECGS AVAILABLE Confirmed by VITA ROUSSEAU MD ([id number]) on 01/06/2018 8:19:36 PM Referred By: Confirmed By:VITA ROUSSEAU MD
[2018-01-06] MEDS: VANCOMYCIN 1,250 MG in DEXTROSE 5%-WATER - 250 ML IVPB SCH (21:26)
[2018-01-06] MEDS ORDERED: INSULIN (LEVEMIR) 100 UNITS/ML UNITS SQ SCH ×2 (22:00)
[2018-01-07] MEDS: PIPERACILLIN/TAZOB 3.375 GM 3.375 GM in DEXTROSE 5%-WATER - 50 ML IVPB SCH ×4 (03:20→21:55)
[2018-01-07 07:42] LABS: HEMATOCRIT 31.4 % (35.4-49); HEMOGLOBIN 10.3 GM/dL (11.7-16.9); MCH 26.5 pg (25.7-33.7); MCHC 32.7 g/dl (32.0-35.9); MEAN CELL VOLUME 81.2 fl (80-96); MEAN PLT VOLUME 8.1 fl (7.5-11.1); PLATELET COUNT 347 K/MM3 (134-434); RBC 3.87 M/mm3 (4.00-5.60); RDW 13.8 % (11.9-15.9); WHITE BLOOD COUNT 6.2 K/mm3 (4.0-10.0)
[2018-01-07 08:06] LABS: SERUM IRON SATURATION 8 % (15-55); TOTAL IRON BINDING CAPACITY 181 ug/dL (250-450); UIBC 166 ug/dL (111-343)
[2018-01-07 08:14] LABS: ANION GAP 7 MMOL/L (8-16); BLOOD UREA NITROGEN 12 mg/dL (7-18); CALCIUM 8.1 mg/dL (8.5-10.1); CHLORIDE 104 mmol/L (98-107); CO2 27 mmol/L (21-32); CREATININE 0.6 mg/dL (0.7-1.3); GLUCOSE,RANDOM 182 mg/dL (74-106); POTASSIUM 3.6 mmol/L (3.5-5.1); SODIUM 138 mmol/L (136-145)
--- NOTE | 2018-01-07 10:09 | PN ---
Physical Exam: SUBJECTIVE: Patient is a 62 y/o male with a history of diabetes, R foot ulcers s/p 3 toe amputation in 2016 2/2 to osteomyelitis, who presents with sepsis 2/2 to likely osteomyelitis. Patient has no complaints, had his MRI done yesterday. No acute events overnight. OBJECTIVE: Vital Signs Temperature 98.9 F 01/07/18 09:40 Pulse Rate 91 H 01/07/18 09:40 Respiratory Rate 18 01/07/18 09:40 Blood Pressure 137/61 01/07/18 09:40 O2 Sat by Pulse Oximetry (%) 98 01/06/18 21:00 GENERAL: The patient is awake, alert, and fully oriented, in no acute distress. LUNGS: Breath sounds equal, clear to auscultation bilaterally HEART: Regular rate and rhythm, ABDOMEN: Soft, nontender, nondistended, normoactive bowel sounds,s. EXTREMITIES: patient refused examination of foot as it was wrapped SKIN: Warm, dry, normal turgor, no rashes or lesions noted CBC, BMP 01/07/18 07:00 01/07/18 07:00 Active Medications Acetaminophen (Tylenol -) 650 mg PO Q4H PRN PRN Reason: fever Al Hydroxide/Mg Hydroxide (Mylanta Oral Suspension -) 30 ml PO Q6H PRN PRN Reason: DYSPEPSIA Ascorbic Acid (Vitamin C -) 500 mg PO DAILY SONI Last Admin: 01/06/18 09:07 Dose: 500 mg Guaifenesin (Diabetic Tussin Dm -) 10 ml PO Q6H PRN PRN Reason: COUGH Last Admin: 01/06/18 23:28 Dose: 10 ml Piperacillin Sod/Tazobactam (Sod 3.375 gm/ Dextrose) 50 mls @ 100 mls/hr IVPB Q6H-IV SONI; Protocol Last Admin: 01/07/18 03:20 Dose: 100 mls/hr Vancomycin HCl 1,250 mg/ (Dextrose) 250 mls @ 166.667 mls/hr IVPB Q12H SONI; Protocol Last Admin: 01/06/18 21:26 Dose: 166.667 mls/hr Insulin Aspart (Novolog Vial Sliding Scale -) 1 vial SQ TIDAC SONI; Protocol Last Admin: 01/06/18 18:28 Dose: 4 units Insulin Detemir (Levemir Vial) 30 units SQ [facility] Last Admin: 01/06/18 21:29 Dose: 30 units Non-Formulary Medication (Azelastine Hcl [Azelastine Hcl]) 137 mcg NS BID [facility] Pantoprazole Sodium (Protonix -) 20 mg PO DAILY [facility] Last Admin: 01/06/18 09:07 Dose: 20 mg ASSESSMENT/PLAN: Patient is a 62 y/o male with a history of diabetes, R foot ulcers s/p 3 toe amputation in 2016 2/2 to osteomyelitis, who presents with sepsis 2/2 to likely osteomyelitis. #sepsis 2/2 to possible osteo vs chronic wound - MRI ; osteomyelitis at third metatarsal extending to the proximal diaphysis - Vancomycin 1.25 (day 2) - Zosyn 3.375( day 2) - f/u ID Dr. Mckeon - f/u Vascular, Dr. Rosales: clear for surgical intervention - f/u Stephanian: porbably amputation next week - xray of foot: bony destruction suggestive of osteomyelitis - Echo normal function #DM - ss - levemir 30 units hs #anemia - 2/2 to likely osteo chronic disease, normocytic - Iron: 15 TIBC: 181 Iron saturation: 8 Ferritin 183.7 #possible PVC's - f/u Dr. Bateman #DVT ppx - lovenox 40 sq Dispo: f/u s/p intervetion of podiatry Visit type - Emergency Visit Emergency Visit: No - New Patient This patient is new to me today: No - Critical Care Critical Care patient: No
[2018-01-07] MEDS ORDERED: INSULIN (NOVOLOG) ASPART 100 UNITS/ML 10ML VIAL ONE (10:22)
[2018-01-07] MEDS ORDERED: PIPERACILLIN/TAZOBACTAM 3.375 GM VIAL IVPB ONE ×4 (10:23→21:23)
[2018-01-07] MEDS ORDERED: DEXTROSE 5%-WATER - 50 ML IVPB ONE ×4 (10:23→21:23)
[2018-01-07] MEDS: INSULIN SLIDING SCALE (NOVOLOG) 1 VIAL SQ SCH ×3 (10:34→18:37)
[2018-01-07] MEDS: VANCOMYCIN 1,250 MG in DEXTROSE 5%-WATER - 250 ML IVPB SCH ×2 (10:41→22:18)
[2018-01-07] MEDS: ASCORBIC ACID 500 MG TABLET (FP) PO SCH (10:43)
[2018-01-07] MEDS: PANTOPRAZOLE 20 MG TABLET (FP) PO SCH (10:43)
--- NOTE | 2018-01-07 11:53 | CONSULT ---
Consult Consult Specialty:: Podiatry Reason for Consultation:: wounds plantar and posterior right foot - History of Present Illness Chief Complaint: 3 wounds right foot. Chronic. - History Source History Provided By: Patient - Past Surgical History Additional Surgical History: prior amputations of right foot - Alcohol/Substance Use Hx Alcohol Use: No - Smoking History Smoking history: Never smoked Home Medications - Allergies Allergies/Adverse Reactions: Allergies Allergy/AdvReac Type Severity Reaction Status Date / Time No Known Allergies Allergy Verified 01/05/18 17:27 - Home Medications Home Medications: Ambulatory Orders Insulin Glargine,Hum.rec.anlog [Basaglar Kwikpen U-100] 42 units SQ HS 01/01/18 Lactobacillus Acidophilus [Bacid -] 1 cap PO BID 01/01/18 Omeprazole Magnesium [Prilosec Otc] 20 mg PO DAILY 01/01/18 Acetaminophen [Tylenol] 650 mg PO Q6H PRN 01/05/18 Ascorbic Acid [Vitamin C] 500 mg PO DAILY 01/05/18 Azelastine HCl 137 mcg NS BID 01/05/18 Cranberry Fruit Extract [Cranberry] 405 mg PO DAILY 01/05/18 Insulin Lispro [Admelog Solostar] 0 unit SQ ASDIR 01/05/18 Mag Hydrox/Al Hydrox/Simeth [Mylanta *Suspension*] 30 ml PO Q6H PRN 01/05/18 Multivitamin [One Daily] 1 each PO DAILY 01/05/18 Physical Exam Vital Signs: Vital Signs Temperature 98.9 F 01/07/18 09:40 Pulse Rate 91 H 01/07/18 09:40 Respiratory Rate 18 01/07/18 09:40 Blood Pressure 137/61 01/07/18 09:40 O2 Sat by Pulse Oximetry (%) 98 01/06/18 21:00 Labs: CBC, BMP 01/07/18 07:00 01/07/18 07:00 Problem List - Problems (1) Diabetic foot ulcers Assessment/Plan: r/o om right foot, cellulitis, foul odor, wbc=6.2, grade 2 ulcer heel, +grade3- 4 wounds x 2 in midfoot Awaiting MRI results. Discussed possible intervention. Currently patient in wound care of Dr. Rosales. Will follow. ID on case. Vascular on case. Patient has had 1 dive in [facility]. Code(s): E11.621 - TYPE 2 DIABETES MELLITUS WITH FOOT ULCER; L97.509 - NON- PRESSURE CHRONIC ULCER OTH PRT UNSP FOOT W UNSP SEVERITY Qualifiers: Diabetic foot ulcer location: unspecified part of foot Diabetes mellitus type: type 2 Laterality: right Non-pressure ulcer stage: unspecified non- pressure ulcer stage Qualified Code(s): E11.621 - Type 2 diabetes mellitus with foot ulcer; L97.519 - Non-pressure chronic ulcer of other part of right foot with unspecified severity
--- NOTE | 2018-01-07 13:42 | PN ---
Teaching Attending Note Name of Resident: Namita Vance ATTENDING PHYSICIAN STATEMENT I saw and evaluated the patient. I reviewed the resident's note and discussed the case with the resident. I agree with the resident's findings and plan as documented. SUBJECTIVE: No fever or chills , no abd pain , feels something is stuck on his foot . no SOB or CP OBJECTIVE: NAD CV: RRR, No JVD ABd: soft, NT, ND , NL BS EXt: R foot with 3 ulcers, with no drainage. lateral 5th metatarsal head, heel, and 1st metatarsal head. no tenderness. digit amputation slight erythema around heal wound . ASSESSMENT AND PLAN: 62 y/o man with h/o DM, right foot osteomyelitis with digit amputations, neuropathy, and chronic right foot ulcers who presented with increased drainage form wounds 1- Sepsis due to infected R foot diabetic wounds with evidence of OM in 3rd and 5th metatarsals, and 5th , and 4th proximal phalanx bones. . -wound cx with multiple organizms. - cont zosyn and vanco - will d/w podiatry . possibly needs debridement and amputation 2- DM : refused finger stick this am . cont insulin at current dose. if needed can increase 3- Normocytic Anemia:iron studies indicate ACD 4- Chronic cough : unclear etiology.improved today . NL cxray. Echo with nl EF. not on any ARB/ACEI. Not a smoker. No signs of fluid overload Might need further investigation as out pt mycoplasma pending 5- Tachycardia: likely due to sepsis. resolved . Tx off tele HLOC
--- NOTE | 2018-01-07 14:25 | PN ---
Progress Note (short form) - Note Progress Note: ID consult dictated 62 year old man with diabetes and diabetic neuropathy has had multiple toe amputations of the right foot starting in 2016 most recently in May 2017 - third amputtion after which he got 6 weeks of antibiotics at the snf plantar wound never healed now with a heel ulcer and new ulcer lateral aspect of the 5th toe MRI -+osteomyelitis surgery to decide regarding further debridement will need senior living iv antbiotics isolation mrsa followup cultures vanco/zosyn for now Problem List - Problems (1) Osteomyelitis Code(s): M86.9 - OSTEOMYELITIS, UNSPECIFIED (2) Diabetic foot ulcers Code(s): E11.621 - TYPE 2 DIABETES MELLITUS WITH FOOT ULCER; L97.509 - NON- PRESSURE CHRONIC ULCER OTH PRT UNSP FOOT W UNSP SEVERITY Qualifiers: Diabetic foot ulcer location: unspecified part of foot Diabetes mellitus type: type 2 Laterality: right Non-pressure ulcer stage: unspecified non- pressure ulcer stage Qualified Code(s): E11.621 - Type 2 diabetes mellitus with foot ulcer; L97.519 - Non-pressure chronic ulcer of other part of right foot with unspecified severity
--- NOTE | 2018-01-07 16:17 | PN ---
Progress Note (short form) - Note Progress Note: Vascular surgery Pt seen and examined. Right plantar foot ulcers. Sent from [facility] for fevers. MRI shows osteo. Pt has palpable DP pulse. Cleared for podiatry intervention from a vascular stand point. Nicholas Rosales DO
--- NOTE | 2018-01-07 18:31 | CONS ---
DATE OF CONSULTATION: DATE OF DICTATION: 01/07/2018 INFECTIOUS DISEASE CONSULTATION REQUESTING REPUBLICAN: Hospitalist Service CONSULTING PHYSICIAN: Velma Baltazar M.D. HISTORY OF PRESENT ILLNESS: This is a 62-year-old man who was admitted on the 05 of January by the emergency room. He developed fever, chills, cough during his hyperbaric treatment that day. He has a history of diabetes, diabetic neuropathy. He has had multiple right foot ulcers and toe amputations and he has been followed by Dr. Rosales in wound care and had just recently started hyperbaric treatment. He had his first toe amputated April 2016, since that time has had 2 more, the last being in May 28 of this year, after which he was transferred to rehabilitation where he underwent 6 weeks of IV vancomycin. He received 2 antibiotics for a total of 6 weeks. He continued to have a chronic ulcer on the plantar surface of the foot for which he was following up for in wound care up in [facility]. He reports while being at rehabilitation he has developed a heel ulcer on the same leg and ulcer lateral to his 5th toe. Recently he took an oral antibiotic for about a week that ended 4 days ago. I am asked to see him for a possible osteomyelitis of his foot. PAST MEDICAL HISTORY: Notable for history of diabetes, diabetic neuropathy, and osteomyelitis of the right foot. SURGICAL HISTORY: Notable for right foot ulcers as well as 3 toes, the 1st, 3rd, and 4th toes have been amputated on the right foot. He has a history of tonsillectomy. SOCIAL HISTORY: He has no history of cigarette, alcohol, or substance use. ALLERGIES: No known drug allergies. FAMILY HISTORY: Notable for diabetes in his mother. MEDICATION: As an outpatient include insulin, lactobacillus, Prilosec, vitamin C, azelastine, insulin, and multivitamins. REVIEW OF SYSTEMS: Currently today he has no complaints. He is feeling well. PHYSICAL EXAMINATION: VITAL SIGNS: His temperature on admission was 100.2, currently 98.6, pulse of 92, blood pressure 152/69, respiratory rate 20. HEENT: Normocephalic. Eyes are anicteric. NECK: Supple. LUNGS: Clear to auscultation. HEART: Regular rate and rhythm. ABDOMEN: Soft, nontender. EXTREMITIES: His right foot is misshapen. He has a heal ulcer which is clean. He has the chronic ulcer that has been getting debrided in the middle of his right foot as well as now an ulcer lateral to his right 5th toe, currently they are without any drainage or erythema. LABORATORY: Labs on admission were 13.3, today is 6.2, hemoglobin 10.3, platelets are 347. BUN and creatinine are 12 and 0.6. Urinalysis is negative. HIV screen is negative. He had a wound culture of the foot done that is polymicrobial including presumptive MRSA. At this time an MRI of the foot that is notable for no evidence of calcaneal soft tissue edema of the foot, especially the forefront. There is a question of osteo at the level of the distal 3rd metatarsal, as well as the residual 4th metatarsal and the proximal phalanx of the 5th toe and the 5th metatarsal. There is evidence of destructive osteomyelitis and fracture of the mid to distal 5th metatarsal. IMPRESSION: In summary, this is a 62-year-old man with multiple diabetic foot ulcers who has lost 3 toes, who now has MRI evidence of osteo, awaiting surgical decision regarding further debridement. He will need long-term intravenous antibiotics. Would isolate him for methicillin-resistant Staphylococcus aureus. Follow up with cultures. Continue vancomycin and Zosyn for now. Further recommendations to follow. VELMA BALTAZAR M.D. [id number]
[2018-01-07] MEDS: COLLAGENASE CLOSTRIDIUM HIST. 30 GRAMS TUBE TP SCH (18:35)
--- NOTE | 2018-01-07 20:20 | PN ---
Progress Note, Physician History of Present Illness: Patient is a 62 year old male with a significant past medical history of IDDM and neuropathy who presents to the ED with complaints of chronic right lower extremity foot wounds that began to develop earlier this month. Patient reports experiencing chronic wound on his right foot that he states has been gradually increasing in warmth and erythema over time prompting him to go to the wound care center for it. He reports wound care center advising him to come into the ED for further evaluation of the extremity. Patient reports experiencing associated symptoms of low grade fever of 100.2 and non productive cough. Denies chest pain, Sob. Denies nausea, vomiting. Denies fevers, chills. Denies Contact with sick individuals, out of state travelling. Denies dysuria, hematuria. Denies constipation, diarrhea. Denies any other Allergies: None Social history: No smoking. No alcohol. No illicit drugs. Surgical history: None PMD: None - Current Medication List Current Medications: Active Medications Acetaminophen (Tylenol -) 650 mg PO Q4H PRN PRN Reason: fever Last Admin: 01/07/18 10:44 Dose: 650 mg Al Hydroxide/Mg Hydroxide (Mylanta Oral Suspension -) 30 ml PO Q6H PRN PRN Reason: DYSPEPSIA Ascorbic Acid (Vitamin C -) 500 mg PO DAILY [facility]ONI Last Admin: 01/07/18 10:43 Dose: 500 mg Collagenase (Santyl -) 1 applic TP DAILY [facility]; Protocol Last Admin: 01/07/18 18:35 Dose: 1 applic Guaifenesin (Diabetic Tussin Dm -) 10 ml PO Q6H PRN PRN Reason: COUGH Last Admin: 01/06/18 23:28 Dose: 10 ml Piperacillin Sod/Tazobactam (Sod 3.375 gm/ Dextrose) 50 mls @ 100 mls/hr IVPB Q6H-IV [facility]; Protocol Last Admin: 01/07/18 18:37 Dose: 100 mls/hr Vancomycin HCl 1,250 mg/ (Dextrose) 250 mls @ 166.667 mls/hr IVPB Q12H [facility]; Protocol Last Admin: 01/07/18 10:41 Dose: 166.667 mls/hr Insulin Aspart (Novolog Vial Sliding Scale -) 1 vial SQ TIDAC [facility]; Protocol Last Admin: 01/07/18 18:37 Dose: Not Given Insulin Detemir (Levemir Vial) 30 units SQ HS [facility] Last Admin: 01/06/18 21:29 Dose: 30 units Non-Formulary Medication (Azelastine Hcl [Azelastine Hcl]) 137 mcg NS BID [facility] Pantoprazole Sodium (Protonix -) 20 mg PO DAILY [facility] Last Admin: 01/07/18 10:43 Dose: 20 mg - Objective Vital Signs: Vital Signs Temperature 98.6 F 01/07/18 14:00 Pulse Rate 92 H 01/07/18 14:00 Respiratory Rate 20 01/07/18 14:00 Blood Pressure 152/79 01/07/18 14:00 O2 Sat by Pulse Oximetry (%) 98 01/06/18 21:00 Labs: CBC, BMP 01/07/18 07:00 01/07/18 07:00 INR, PTT INR 1.16 (0.83-1.09) H 01/05/18 17:56
[2018-01-07] MEDS ORDERED: PT OWN MED DRAWER 7, Y5N ONE (20:37)
[2018-01-07] MEDS ORDERED: MAG HYDROX/AL HYDROX/SIMETH 30 ML UNIT-DOSE CUP PO PRN (21:47)
[2018-01-07] MEDS ORDERED: ACETAMINOPHEN 325 MG TABLET (FP) PO PRN (21:47)
[2018-01-07] MEDS ORDERED: guaiFENesin/D-M SUGAR-FREE/ACLHOL-FREE 118 ML BOTTLE PO PRN (21:47)
[2018-01-07] MEDS: INSULIN (LEVEMIR) 100 UNITS/ML UNITS SQ SCH (22:18)
[2018-01-07] MEDS: PATIENT'S OWN MEDICATION (NON-FORMULARY) (Azelastine Hcl [Azelastine Hcl] 137 MCG) NS SCH (23:22)
[2018-01-08] MEDS ORDERED: DEXTROSE 5%-WATER - 50 ML IVPB ONE ×2 (04:16→10:36)
[2018-01-08] MEDS ORDERED: PIPERACILLIN/TAZOBACTAM 3.375 GM VIAL IVPB ONE ×2 (04:16→10:36)
[2018-01-08] MEDS: PIPERACILLIN/TAZOB 3.375 GM 3.375 GM in DEXTROSE 5%-WATER - 50 ML IVPB SCH ×2 (04:21→10:43)
[2018-01-08] MEDS: INSULIN SLIDING SCALE (NOVOLOG) 1 VIAL SQ SCH ×3 (06:26→17:44)
[2018-01-08 08:13] LABS: HEMATOCRIT 31.5 % (35.4-49); HEMOGLOBIN 10.4 GM/dL (11.7-16.9); MCH 26.8 pg (25.7-33.7); MCHC 32.9 g/dl (32.0-35.9); MEAN CELL VOLUME 81.7 fl (80-96); MEAN PLT VOLUME 8.4 fl (7.5-11.1); PLATELET COUNT 406 K/MM3 (134-434); RBC 3.86 M/mm3 (4.00-5.60); RDW 13.7 % (11.9-15.9); WHITE BLOOD COUNT 6.5 K/mm3 (4.0-10.0)
[2018-01-08 08:50] LABS: CHLORIDE 105 mmol/L (98-107); POTASSIUM 4.2 mmol/L (3.5-5.1); SODIUM 139 mmol/L (136-145)
[2018-01-08 09:05] LABS: ANION GAP 5 MMOL/L (8-16); BLOOD UREA NITROGEN 13 mg/dL (7-18); CALCIUM 8.5 mg/dL (8.5-10.1); CO2 29 mmol/L (21-32); CREATININE 0.7 mg/dL (0.7-1.3); GLUCOSE,RANDOM 134 mg/dL (74-106)
[2018-01-08] MEDS ORDERED: PT OWN MED DRAWER 7, Y5N ONE ×3 (10:36→17:40)
[2018-01-08] MEDS: PANTOPRAZOLE 20 MG TABLET (FP) PO SCH (10:43)
[2018-01-08] MEDS: ASCORBIC ACID 500 MG TABLET (FP) PO SCH (10:43)
[2018-01-08] MEDS: COLLAGENASE CLOSTRIDIUM HIST. 30 GRAMS TUBE TP SCH (10:43)
[2018-01-08] MEDS ORDERED: INSULIN (NOVOLOG) ASPART 100 UNITS/ML 10ML VIAL ONE ×2 (12:29→17:40)
[2018-01-08] MEDS ORDERED: ERTAPENEM SODIUM 1 GM/50 ML PRE-DOCKED IVPB SCH (12:45)
--- NOTE | 2018-01-08 12:45 | PN ---
Progress Note (short form) - Note Progress Note: no new complaints Vital Signs Period Temp Pulse Resp BP Sys/Campos Pulse Ox Last 24 Hr 98.1 F-98.6 F 74-111 18-20 116-152/65-79 98 cor-rrr llungs clear abd soft, nt dressing soiled intact CBC, BMP 01/08/18 06:00 01/08/18 06:00 Microbiology 01/05/18 19:15 Foot - Right Gram Stain - Final 01/05/18 19:15 Foot - Right Wound Culture - Preliminary Klebsiella Pneumoniae Enterobacter Cloacae Mr S Aureus Enterococcus Faecalis Proteus Species 01/06/18 06:50 Blood - Peripheral Venous Blood Culture - Preliminary NO GROWTH OBTAINED AFTER 48 HOURS, INCUBATION TO CONTINUE FOR 3 DAYS. 01/06/18 07:18 Blood - Peripheral Venous Blood Culture - Preliminary NO GROWTH OBTAINED AFTER 48 HOURS, INCUBATION TO CONTINUE FOR 3 DAYS. 01/05/18 20:30 Urine - Urine Clean Catch Urine Culture - Final NO GROWTH OBTAINED 01/06/18 11:00 Urine For Antigen Detection Legionella Antigen - Final 01/06/18 11:00 Urine For Antigen Detection Streptococcus pneumoniae Antigen (M - Final 01/06/18 06:30 Serum Mycoplasma Antibody - Preliminary 01/06/18 06:30 Serum Mycoplasma Antibody - Preliminary MRI -+osteomyelitis a/p surgery to decide regarding further debridement will need fdc iv antbiotics isolation mrsa followup cultures continue vancomycin switch to ertapenem Problem List - Problems (1) Osteomyelitis Code(s): M86.9 - OSTEOMYELITIS, UNSPECIFIED (2) Diabetic foot ulcers Code(s): E11.621 - TYPE 2 DIABETES MELLITUS WITH FOOT ULCER; L97.509 - NON- PRESSURE CHRONIC ULCER OTH PRT UNSP FOOT W UNSP SEVERITY Qualifiers: Diabetic foot ulcer location: unspecified part of foot Diabetes mellitus type: type 2 Laterality: right Non-pressure ulcer stage: unspecified non- pressure ulcer stage Qualified Code(s): E11.621 - Type 2 diabetes mellitus with foot ulcer; L97.519 - Non-pressure chronic ulcer of other part of right foot with unspecified severity
--- NOTE | 2018-01-08 14:03 | PN ---
Physical Exam: SUBJECTIVE: Patient is a 62 y/o male with a history of diabetes, R foot ulcers s/p 3 toe amputation in 2016 2/2 to osteomyelitis, who presents with sepsis 2/2 to likely osteomyelitis. Patient has no complaints today and no acute events. OBJECTIVE: Vital Signs Temperature 98.3 F 01/08/18 10:00 Pulse Rate 74 01/08/18 10:00 Respiratory Rate 18 01/08/18 10:00 Blood Pressure 116/74 01/08/18 10:00 O2 Sat by Pulse Oximetry (%) 98 01/07/18 21:00 GENERAL: The patient is awake, alert, and fully oriented, in no acute distress. LUNGS: Breath sounds equal, clear to auscultation bilaterally HEART: Regular rate and rhythm, ABDOMEN: Soft, nontender, nondistended, normoactive bowel sounds, EXTREMITIES: patient refused examination of foot as it was wrapped SKIN: Warm, dry, normal turgor, no rashes or lesions noted CBC, BMP 01/08/18 06:00 01/08/18 06:00 Active Medications Acetaminophen (Tylenol -) 650 mg PO Q4H PRN PRN Reason: fever Al Hydroxide/Mg Hydroxide (Mylanta Oral Suspension -) 30 ml PO Q6H PRN PRN Reason: DYSPEPSIA Ascorbic Acid (Vitamin C -) 500 mg PO DAILY [facility] Last Admin: 01/08/18 10:43 Dose: 500 mg Collagenase (Santyl -) 1 applic TP DAILY [facility]; Protocol Last Admin: 01/08/18 10:43 Dose: 1 applic Guaifenesin (Diabetic Tussin Dm -) 10 ml PO Q6H PRN PRN Reason: COUGH Last Admin: 01/07/18 23:18 Dose: 10 ml Vancomycin HCl 1,250 mg/ (Dextrose) 250 mls @ 166.667 mls/hr IVPB Q12H [facility]; Protocol Last Admin: 01/07/18 22:18 Dose: 166.667 mls/hr Ertapenem 1 gm/ Sodium (Chloride) 50 mls @ 100 mls/hr IVPB DAILY [facility] Insulin Aspart (Novolog Vial Sliding Scale -) 1 vial SQ TIDAC [facility]; Protocol Last Admin: 01/08/18 12:38 Dose: 2 units Insulin Detemir (Levemir Vial) 30 units SQ HS [facility] Last Admin: 01/07/18 22:18 Dose: 30 unit Non-Formulary Medication (Azelastine Hcl [Azelastine Hcl]) 137 mcg NS BID [facility] Pantoprazole Sodium (Protonix -) 20 mg PO DAILY [facility] Last Admin: 01/08/18 10:43 Dose: Not Given ASSESSMENT/PLAN: Patient is a 62 y/o male with a history of diabetes, R foot ulcers s/p 3 toe amputation in 2015 2/2 to osteomyelitis, who presents with sepsis 2/2 to likely osteomyelitis. #sepsis 2/2 to possible osteo vs chronic wound - MRI ; osteomyelitis at third metatarsal extending to the proximal diaphysis - Vancomycin 1.25 (day 2) - Ertapenem - f/u ID Dr. Mckeon - f/u Vascular, Dr. Rosales: clear for surgical intervention - f/u Stephanian: porbably amputation next week - xray of foot: bony destruction suggestive of osteomyelitis - Echo normal function - Patient will have debridement and amputation thursday #DM - ss - levemir 30 units hs #anemia - 2/2 to likely osteo chronic disease, normocytic - Iron: 15 TIBC: 181 Iron saturation: 8 Ferritin 183.7 #possible PVC's - f/u Dr. Bateman #DVT ppx - lovenox 40 sq Dispo: f/u s/p intervetion of podiatry Visit type - Emergency Visit Emergency Visit: No - New Patient This patient is new to me today: No - Critical Care Critical Care patient: No
[2018-01-08] MEDS: VANCOMYCIN 1,250 MG in DEXTROSE 5%-WATER - 250 ML IVPB SCH ×3 (14:49→21:15)
--- NOTE | 2018-01-08 16:06 | PN ---
Teaching Attending Note Name of Resident: Namita Vance ATTENDING PHYSICIAN STATEMENT I saw and evaluated the patient. I reviewed the resident's note and discussed the case with the resident. I agree with the resident's findings and plan as documented. SUBJECTIVE: No fever or chills , no pain. cont to have cough OBJECTIVE: NAD CV: RRR, No JVD ABD: soft, NT, ND , NL BS EXt: R foot was not unwrapped today ASSESSMENT AND PLAN: 62 y/o man with h/o DM, right foot osteomyelitis with digit amputations, neuropathy, and chronic right foot ulcers who presented with increased drainage form wounds 1- Sepsis due to infected R foot diabetic wounds with evidence of OM in 3rd and 5th metatarsals, and 5th , and 4th proximal phalanx bones. . -wound cx reviewed with ID - abx switched to ertapenem and vanco - check vanco trough today - d/w dr. Champion , sx on Thursday ( debridment and toe amputation ) 2- DM: cont insulin at current dose. if needed can increase 3- Normocytic Anemia:iron studies indicate ACD 4- Chronic cough : unclear etiologyf/u as out pt mycoplasma abs neg 5- Tachycardia: likely due to sepsis. resolved . HLOC
--- NOTE | 2018-01-08 16:49 | PN ---
Progress Note (short form) - Note Progress Note: Patient seen today after MRI. Patient eager to have foot surgery to remove infected bone and to normalize appearance of stump. vss, Tmax 98.4 +om 3rd and 5th metatarsals, +subluxed dislocated toes x 2, +draining wound forefoot, +heel ulceration, +multiple organisms noted on wound culture from 01/05. om subluxed toes wounds x 3 diabetic neuropathy Discussed revision of bone and soft tissue including removal of toes that are subluxed to improve stump so patient can get proper fitting shoes after healing. Discussed with vascular Dr. Rosales and patient is cleared for procedure. Adequate blood flow noted. Patient is currently in agreement with proposed procedure. Currently understands all risks benefits and alternatives. Answered all current questions. Will discuss once again and answer anymore questions, if any. Patient is currently on schedule for 9:30am. Continue santyl to heel and betadine to forefoot. will follow. Read and appreciated ID note. Reviewed xray and MRI. Problem List - Problems (1) Diabetic foot ulcers Code(s): E11.621 - TYPE 2 DIABETES MELLITUS WITH FOOT ULCER; L97.509 - NON- PRESSURE CHRONIC ULCER OTH PRT UNSP FOOT W UNSP SEVERITY Qualifiers: Diabetic foot ulcer location: unspecified part of foot Diabetes mellitus type: type 2 Laterality: right Non-pressure ulcer stage: unspecified non- pressure ulcer stage Qualified Code(s): E11.621 - Type 2 diabetes mellitus with foot ulcer; L97.519 - Non-pressure chronic ulcer of other part of right foot with unspecified severity
[2018-01-08] MEDS: ERTAPENEM SODIUM 1 GM in SODIUM CHLORIDE 50 ML IVPB SCH (17:44)
[2018-01-08] MEDS: INSULIN (LEVEMIR) 100 UNITS/ML UNITS SQ SCH (23:04)
[2018-01-09 00:07] LABS: COLD AGGLUTININS Negative (Neg <1:32)
[2018-01-09] MEDS ORDERED: INSULIN (NOVOLOG) ASPART 100 UNITS/ML 10ML VIAL ONE ×2 (06:29→18:23)
[2018-01-09] MEDS: INSULIN SLIDING SCALE (NOVOLOG) 1 VIAL SQ SCH ×3 (06:53→17:48)
--- NOTE | 2018-01-09 08:13 | PN ---
Physical Exam: SUBJECTIVE: Patient seen and examined. comfortable, appetite has improved. toileting without difficulty. denies fevers , chills, n/v, chest pain, sob, leg pain. OBJECTIVE: Vital Signs Period Temp Pulse Resp BP Sys/Campos Pulse Ox Last 24 Hr 97.9 F-98.4 F 73-97 18-18 116-155/74-81 98-98 GENERAL: The patient is awake, alert, and fully oriented, in no acute distress. EYES: PERRL, extraocular movements intact, sclera anicteric, conjunctiva clear. ENT: oropharynx clear without exudates, moist mucous membranes. LUNGS: Breath sounds equal, clear to auscultation bilaterally, no wheezes, no crackles, no accessory muscle use. HEART: Regular rate and rhythm, S1, S2 without murmur, rub or gallop. ABDOMEN: Soft, nontender, nondistended, normoactive bowel sounds, no guarding EXTREMITIES: 2+ radial pulses, warm, well-perfused, no edema. LOWER EXRTREMITIES: 2+ lft DP pulse, multiple deformities in right toes, ulcers in lateral foot and at heel. no sensation. NEUROLOGICAL: Cranial nerves II through XII grossly intact. Normal speech Laboratory Results - last 24 hr 01/06/18 01/07/18 01/08/18 06:30 07:00 06:00 WBC RBC Hgb Hct MCV MCH MCHC RDW Plt Count MPV ESR Sodium 139 Potassium 4.2 Chloride 105 Carbon Dioxide 29 Anion Gap 5 L BUN 13 Creatinine 0.7 Creat Clearance w eGFR > 60 POC Glucometer Random Glucose 134 H D Calcium 8.5 C-Reactive Protein 11.6 H TSH Cancelled 1.57 Vancomycin Pre-Dose Cold Agglutinins Negative 01/08/18 01/08/18 01/08/18 06:00 06:00 12:31 WBC 6.5 RBC 3.86 L Hgb 10.4 L Hct 31.5 L MCV 81.7 MCH 26.8 MCHC 32.9 RDW 13.7 Plt Count 406 MPV 8.4 ESR 92 H Sodium Potassium Chloride Carbon Dioxide Anion Gap BUN Creatinine Creat Clearance w eGFR POC Glucometer 191 Random Glucose Calcium C-Reactive Protein TSH Vancomycin Pre-Dose Cold Agglutinins 01/08/18 01/08/18 01/08/18 17:43 20:05 22:17 WBC RBC Hgb Hct MCV MCH MCHC RDW Plt Count MPV ESR Sodium Potassium Chloride Carbon Dioxide Anion Gap BUN Creatinine Creat Clearance w eGFR POC Glucometer 277 290 Random Glucose Calcium C-Reactive Protein TSH Vancomycin Pre-Dose 18.20 H* Cold Agglutinins 01/09/18 06:51 WBC RBC Hgb Hct MCV MCH MCHC RDW Plt Count MPV ESR Sodium Potassium Chloride Carbon Dioxide Anion Gap BUN Creatinine Creat Clearance w eGFR POC Glucometer 202 Random Glucose Calcium C-Reactive Protein TSH Vancomycin Pre-Dose Cold Agglutinins Active Medications Generic Name Dose Route Start Last Admin Trade Name Freq PRN Reason Stop Dose Admin Acetaminophen 650 mg 01/07/18 21:47 Tylenol - PO Q4H PRN fever Al Hydroxide/Mg Hydroxide 30 ml 01/07/18 21:47 Mylanta Oral Suspension - PO Q6H PRN DYSPEPSIA Ascorbic Acid 500 mg 01/08/18 10:00 01/08/18 10:43 Vitamin C - PO 500 mg DAILY SONI Administration Collagenase 1 applic 01/07/18 12:00 01/08/18 10:43 Santyl - TP 1 applic DAILY SONI Administration Protocol Guaifenesin 10 ml 01/07/18 21:47 01/07/18 23:18 Diabetic Tussin Dm - PO 10 ml Q6H PRN Administration COUGH Vancomycin HCl 1,250 mg/ 250 mls @ 166.667 mls/hr 01/06/18 21:00 01/08/18 21: 15 Dextrose IVPB Not Given Q12H SONI Protocol Ertapenem 1 gm/ Sodium 50 mls @ 100 mls/hr 01/08/18 13:30 01/08/18 17:44 Chloride IVPB 100 mls/hr DAILY SONI Administration Insulin Aspart 1 vial 01/06/18 16:30 01/09/18 06:53 Novolog Vial Sliding Scale - SQ 4 units TIDAC SONI Administration Protocol Insulin Detemir 30 units 01/07/18 22:00 01/08/18 23:04 Levemir Vial SQ 30 unit HS SONI Administration Non-Formulary Medication 137 mcg 01/07/18 22:00 Azelastine Hcl [Azelastine Hcl] NS BID SONI Pantoprazole Sodium 20 mg 01/08/18 10:00 01/08/18 10:43 Protonix - PO Not Given DAILY [facility] ASSESSMENT/PLAN: 62 y/o male uncontrolled diabetes, R foot ulcers s/p 3 toe amputation in 2016 due to osteomyelitis, admitted for sepsis due to osteomyelitis. #sepsis due to osteomyelitis in right foot - 01/06 MRI with osteomyelitis at third metatarsal extending to the proximal diaphysis - Vancomycin 1250mg BID - started 01/06, vanc trough 18.20 01/08, vanc dose was held. goal trough for osteo is 15-20, vanc will be restarted today - Ertapenem 1gm q24hr - started 01/08 - local wound care with santyl and daily dressing changes - Consult: ID Dr. Mckeno - Consult: Vascular, Dr. Rosales: clear for surgical intervention - Consult: podiatry : scheduled thursday at 930 for surgery, amputation and debridement. will make patient NPO thursday night - 01/05 xray of foot: bony destruction suggestive of osteomyelitis - 01/06 Echo normal function - continue vitamin C daily #chronic cough - occuring for months, treat symptomatically with PPI, cough suppressants - protonix 20mg daily, tussin prn #DM - niss, BGM ACHS - levemir 30 units hs, decresead from his home dose of 45units HS #anemia, normocytic - iron studies completed, likely anemia of chronic disease - Iron: 15 TIBC: 181 Iron saturation: 8 Ferritin 183.7 #possible PVC's - f/u Dr. Bateman, pt currently denies chest pain, palpitations #DVT ppx - lovenox 40 sq Diet: diabetic Visit type - Emergency Visit Emergency Visit: No - New Patient This patient is new to me today: Yes Date on this admission: 01/09/18 - Critical Care Critical Care patient: No - Discharge Referral Referred to [facility] Med P.C.: No
[2018-01-09] MEDS ORDERED: PT OWN MED DRAWER 7, Y5N ONE (10:20)
[2018-01-09] MEDS: ASCORBIC ACID 500 MG TABLET (FP) PO SCH (10:39)
[2018-01-09] MEDS: PANTOPRAZOLE 20 MG TABLET (FP) PO SCH ×2 (10:39→11:56)
[2018-01-09] MEDS: COLLAGENASE CLOSTRIDIUM HIST. 30 GRAMS TUBE TP SCH (10:39)
[2018-01-09] MEDS: ERTAPENEM SODIUM 1 GM in SODIUM CHLORIDE 50 ML IVPB SCH (10:40)
[2018-01-09] MEDS: VANCOMYCIN 1,250 MG in DEXTROSE 5%-WATER - 250 ML IVPB SCH ×3 (13:24→22:43)
--- NOTE | 2018-01-09 15:39 | PN ---
Teaching Attending Note Name of Resident: Luz Gonzales ATTENDING PHYSICIAN STATEMENT I saw and evaluated the patient. I reviewed the resident's note and discussed the case with the resident. I agree with the resident's findings and plan as documented. SUBJECTIVE: No fever or chills. cont to have cough . no sputum production . OBJECTIVE: NAD. walking bare foot in room CV: RRR, No JVD ABD: soft, NT, ND , NL BS EXt: R foot with three ulcers on heal, 5th metatarsal head and 1st metatarsal head. no drainage seen or expressed . DP 2+ ASSESSMENT AND PLAN: 62 y/o man with h/o DM, right foot osteomyelitis with digit amputations, neuropathy, and chronic right foot ulcers who presented with increased drainage form wounds 1- Sepsis due to infected R foot diabetic wounds with evidence of OM in 3rd and 5th metatarsals, and 5th , and 4th proximal phalanx bones. . -final wound cx reviewed. - vanco was held last night . resume today . goal trough 15-20 . - will check trough tomorrow evening - cont ertapenem - for debridment on Thursday 2- DM: increase HS insulin and cont SSI 3- Normocytic Anemia:iron studies indicate ACD 4- Chronic cough : unclear etiology f/u as out pt mycoplasma abs pending HLOC
[2018-01-09] MEDS ORDERED: INSULIN (LEVEMIR) 100 UNITS/ML UNITS SQ ONE (18:23)
[2018-01-09] MEDS: PATIENT'S OWN MEDICATION (NON-FORMULARY) (Azelastine Hcl [Azelastine Hcl] 137 MCG) NS SCH ×2 (19:55→20:17)
[2018-01-09] MEDS: INSULIN (LEVEMIR) 100 UNITS/ML UNITS SQ SCH (22:26)
[2018-01-10] MEDS ORDERED: INSULIN (NOVOLOG) ASPART 100 UNITS/ML 10ML VIAL ONE ×2 (06:20→12:06)
[2018-01-10] MEDS ORDERED: PT OWN MED DRAWER 7, Y5N ONE ×4 (06:20→14:52)
[2018-01-10] MEDS: INSULIN SLIDING SCALE (NOVOLOG) 1 VIAL SQ SCH ×3 (06:52→17:47)
--- NOTE | 2018-01-10 08:59 | PN ---
Progress Note, Physician Chief Complaint: Pt A&Ox3; c/o burning with IV Vancomycin after every dose, requiring several IV site changes; presently without an IV site. History of Present Illness: Patient is a 62 year old male with a significant past medical history of IDDM and neuropathy who presents to the ED with complaints of chronic right lower extremity foot wounds that began to develop earlier this month. Patient reports experiencing chronic wound on his right foot that he states has been gradually increasing in warmth and erythema over time prompting him to go to the wound care center for it. He reports wound care center advising him to come into the ED for further evaluation of the extremity. Patient reports experiencing associated symptoms of low grade fever of 100.2 and non productive cough. Denies chest pain, Sob. Denies nausea, vomiting. Denies fevers, chills. Denies Contact with sick individuals, out of state travelling. Denies dysuria, hematuria. Denies constipation, diarrhea. Denies any other Allergies: None Social history: No smoking. No alcohol. No illicit drugs. Surgical history: None PMD: None - Current Medication List Current Medications: Active Medications Acetaminophen (Tylenol -) 650 mg PO Q4H PRN PRN Reason: fever Al Hydroxide/Mg Hydroxide (Mylanta Oral Suspension -) 30 ml PO Q6H PRN PRN Reason: DYSPEPSIA Ascorbic Acid (Vitamin C -) 500 mg PO DAILY [facility] Last Admin: 01/09/18 10:39 Dose: 500 mg Collagenase (Santyl -) 1 applic TP DAILY [facility]; Protocol Last Admin: 01/09/18 10:39 Dose: 1 applic Enoxaparin Sodium (Lovenox -) 40 mg SQ DAILY [facility] Guaifenesin (Diabetic Tussin Dm -) 10 ml PO Q6H PRN PRN Reason: COUGH Last Admin: 01/07/18 23:18 Dose: 10 ml Vancomycin HCl 1,250 mg/ (Dextrose) 250 mls @ 166.667 mls/hr IVPB Q12H [facility]; Protocol Last Admin: 01/09/18 22:43 Dose: Not Given Ertapenem 1 gm/ Sodium (Chloride) 50 mls @ 100 mls/hr IVPB DAILY [facility] Last Admin: 01/09/18 10:40 Dose: 100 mls/hr Insulin Aspart (Novolog Vial Sliding Scale -) 1 vial SQ TIDAC [facility]; Protocol Last Admin: 01/10/18 06:52 Dose: 2 units Insulin Detemir (Levemir Vial) 35 units SQ HS [facility] Last Admin: 01/09/18 22:26 Dose: 35 units Pantoprazole Sodium (Protonix -) 20 mg PO DAILY [facility] Last Admin: 01/09/18 11:56 Dose: Not Given - Objective Vital Signs: Vital Signs Temperature 98.7 F 01/10/18 06:37 Pulse Rate 90 01/10/18 06:37 Respiratory Rate 20 01/10/18 06:37 Blood Pressure 128/65 01/10/18 06:37 O2 Sat by Pulse Oximetry (%) 98 01/09/18 21:00 Constitutional: Yes: Calm Eyes: Yes: WNL HENT: Yes: WNL Neck: Yes: Thyromegaly Cardiovascular: Yes: S1, S2 Respiratory: Yes: WNL Gastrointestinal: Yes: Soft ...Rectal Exam: Yes: Deferred Genitourinary: No: Anuria Musculoskeletal: Yes: Joint Stiffness, Muscle Pain Extremities: Yes: Cool, Other (right foot: several toes amputated) Edema: Yes Edema: RLE: 1+ Peripheral Pulses WNL: No Peripheral Pulses: Left Doralis Pedis: 1+, Right Dorsalis Pedis: 1+ Integumentary: Yes: Other Wound/Incision: Yes: Dressing Dry and Intact Neurological: Yes: Alert, Oriented, Weakness Psychiatric: Yes: Alert, Oriented Labs: CBC, BMP 01/08/18 06:00 01/08/18 06:00 INR, PTT INR 1.16 (0.83-1.09) H 01/05/18 17:56 Problem List - Problems (1) Diabetic foot ulcers Assessment/Plan: f/u with vasular surgeon, infectious keisha FOURNIER. Code(s): E11.621 - TYPE 2 DIABETES MELLITUS WITH FOOT ULCER; L97.509 - NON- PRESSURE CHRONIC ULCER OTH PRT UNSP FOOT W UNSP SEVERITY Qualifiers: Diabetic foot ulcer location: unspecified part of foot Diabetes mellitus type: type 2 Laterality: right Non-pressure ulcer stage: unspecified non- pressure ulcer stage Qualified Code(s): E11.621 - Type 2 diabetes mellitus with foot ulcer; L97.519 - Non-pressure chronic ulcer of other part of right foot with unspecified severity (2) Fever Code(s): R50.9 - FEVER, UNSPECIFIED Qualifiers: Fever type: unspecified Qualified Code(s): R50.9 - Fever, unspecified (3) Osteomyelitis Code(s): M86.9 - OSTEOMYELITIS, UNSPECIFIED (4) Hyperlipidemia Assessment/Plan: If possible, start statin to keep LDL cholesterol < 70 mg/dL (pt is also on daptomycin, which may be a relative contraindication). Code(s): E78.5 - HYPERLIPIDEMIA, UNSPECIFIED (5) Munger cardiac risk >20% in next 10 years Assessment/Plan: Statin, unless contraindicated (pt is presently on daptomycin) to keep LDL cholesterol well below 70 mg/dL. When stable, will need stress MIBI, unless done in the recent past. Code(s): Z91.89 - OTH PERSONAL RISK FACTORS, NOT ELSEWHERE CLASSIFIED
[2018-01-10] MEDS: ERTAPENEM SODIUM 1 GM in SODIUM CHLORIDE 50 ML IVPB SCH (09:56)
[2018-01-10] MEDS: ASCORBIC ACID 500 MG TABLET (FP) PO SCH (09:57)
[2018-01-10] MEDS ORDERED: ENOXAPARIN NA (PORCINE) 40 MG/0.4 ML DISP.SYRIN SQ SCH (10:00)
[2018-01-10] MEDS: VANCOMYCIN 1,250 MG in DEXTROSE 5%-WATER - 250 ML IVPB SCH (10:06)
[2018-01-10] MEDS: PANTOPRAZOLE 20 MG TABLET (FP) PO SCH (10:06)
--- NOTE | 2018-01-10 12:35 | PN ---
Progress Note (short form) - Note Progress Note: Patient seen today and is pre-op for tomorrow. Patient wants to have surgery JOHNNIE. Today is his pre-op consent. vss, Tmax 98.4 +om 3rd and 5th metatarsals, +subluxed dislocated 2 toes 3(2)&5, +draining wound forefoot, +heel ulceration, +multiple organisms noted on wound culture from 01/05/2018. om subluxed toes wounds x 3 diabetic neuropathy Showed patient xray of his foot and went over procedure with him on my laptop. Discussed revision of bone and soft tissue including removal of toes that are subluxed to improve stump so patient can get proper fitting shoes after healing. Patient is currently in agreement with proposed procedure. Understands all risks benefits and alternatives. Answered all questions. Patient had no further questions. Patient signed consent and was witnessed by RN. Patient is currently on schedule for 9:30am. Continue santyl to heel and betadine to forefoot. will follow. Reviewed xray once again. Scheduled for removal of subluxed toes x 2, revision of mettarsals 3&5 right foot and debridement of bone and soft tissue. Problem List - Problems (1) Diabetic foot ulcers Code(s): E11.621 - TYPE 2 DIABETES MELLITUS WITH FOOT ULCER; L97.509 - NON- PRESSURE CHRONIC ULCER OTH PRT UNSP FOOT W UNSP SEVERITY Qualifiers: Diabetic foot ulcer location: unspecified part of foot Diabetes mellitus type: type 2 Laterality: right Non-pressure ulcer stage: unspecified non- pressure ulcer stage Qualified Code(s): E11.621 - Type 2 diabetes mellitus with foot ulcer; L97.519 - Non-pressure chronic ulcer of other part of right foot with unspecified severity
--- NOTE | 2018-01-10 12:56 | PN ---
Progress Note (short form) - Note Progress Note: refusing vancomycin- it quiroz his veins despite multiple iv attempts no systemic compliants- no itching, erythema Vital Signs Period Temp Pulse Resp BP Sys/Campos Pulse Ox Last 24 Hr 93.3 F-98.7 F 71-90 20-20 121-133/55-76 98 cor-rrr lungs clear abd soft,nt foot bandaged CBC, BMP 01/08/18 06:00 01/08/18 06:00 Laboratory Tests 01/08/18 01/08/18 06:00 06:00 ESR 92 H C-Reactive Protein 11.6 H MRI -+osteomyelitis Microbiology 01/06/18 06:50 Blood - Peripheral Venous Blood Culture - Preliminary NO GROWTH OBTAINED AFTER 96 HOURS, INCUBATION TO CONTINUE FOR 1 DAYS. 01/06/18 07:18 Blood - Peripheral Venous Blood Culture - Preliminary NO GROWTH OBTAINED AFTER 96 HOURS, INCUBATION TO CONTINUE FOR 1 DAYS. 01/05/18 19:15 Foot - Right Gram Stain - Final 01/05/18 19:15 Foot - Right Wound Culture - Final Klebsiella Pneumoniae Enterobacter Cloacae Mr S Aureus Enterococcus Faecalis Proteus Vulgaris 01/05/18 20:30 Urine - Urine Clean Catch Urine Culture - Final NO GROWTH OBTAINED 01/06/18 11:00 Urine For Antigen Detection Legionella Antigen - Final 01/06/18 11:00 Urine For Antigen Detection Streptococcus pneumoniae Antigen (M - Final 01/06/18 06:30 Serum Mycoplasma Antibody - Preliminary 01/06/18 06:30 Serum Mycoplasma Antibody - Preliminary a/p for operative debridement in am, suspect will require senior care iv antibiotics refusing vancomycin, linezolid marian is 4, clindamycin resistant- will switch to daptomycin he is agreeable to retrying vancomycin via picc line if senior care iv antiibotics are needed continue ertapenem isolation mrsa d/w patient d/w hospitalist Problem List - Problems (1) Osteomyelitis Code(s): M86.9 - OSTEOMYELITIS, UNSPECIFIED (2) Diabetic foot ulcers Code(s): E11.621 - TYPE 2 DIABETES MELLITUS WITH FOOT ULCER; L97.509 - NON- PRESSURE CHRONIC ULCER OTH PRT UNSP FOOT W UNSP SEVERITY Qualifiers: Diabetic foot ulcer location: unspecified part of foot Diabetes mellitus type: type 2 Laterality: right Non-pressure ulcer stage: unspecified non- pressure ulcer stage Qualified Code(s): E11.621 - Type 2 diabetes mellitus with foot ulcer; L97.519 - Non-pressure chronic ulcer of other part of right foot with unspecified severity
[2018-01-10] MEDS: DAPTOMYCIN 540 MG in SODIUM CHLORIDE 50 ML IVPB SCH (15:54)
[2018-01-10] MEDS: COLLAGENASE CLOSTRIDIUM HIST. 30 GRAMS TUBE TP SCH (15:59)
--- NOTE | 2018-01-10 16:36 | PN ---
Progress Note (short form) - Note Progress Note: Subjective: No fever or chills . feels much better . refused his vanco as locally it hurts Objective: Vital Signs: Last Vital Signs Temp Pulse Resp BP Pulse Ox 98.7 F 90 20 128/65 98 01/10/18 06:37 01/10/18 06:37 01/10/18 06:37 01/10/18 06:37 01/09/18 21:00 Laboratory Results - last 24 hr 01/09/18 01/10/18 01/10/18 17:44 06:47 11:50 POC Glucometer 302 189 209 Physical Exam: NAD. verbally aggressive EXt: R foot in a dressing with edema on lower leg ASSESSMENT AND PLAN: 62 y/o man with h/o DM, right foot osteomyelitis with digit amputations, neuropathy, and chronic right foot ulcers who presented with increased drainage form wounds 1- Sepsis due to infected R foot diabetic wounds with evidence of OM in 3rd and 5th metatarsals, and 5th , and 4th proximal phalanx bones. . - d/w Dr. Mckeon, dapto instead of vanco for now - Cont ertapenem - For debridment on Thursday. make NPO in am 2- DM:cont levemir and cont SSI. 3- Normocytic Anemia: iron studies indicate ACD 4- Chronic cough: unclear etiology f/u as out pt mycoplasma abs pending HLOC Visit type - Emergency Visit Emergency Visit: Yes ED Registration Date: 01/05/18 Care time: The patient presented to the Emergency Department on the above date and was hospitalized for further evaluation of their emergent condition. - New Patient This patient is new to me today: No - Critical Care Critical Care patient: No
[2018-01-10] MEDS: INSULIN (LEVEMIR) 100 UNITS/ML UNITS SQ SCH (22:47)
[2018-01-11] MEDS: INSULIN SLIDING SCALE (NOVOLOG) 1 VIAL SQ SCH ×2 (06:47→17:43)
[2018-01-11 06:55] LABS: BASO % 1.4 % (0-2.0); EOS % 5.6 % (0-4.5); HEMATOCRIT 34.4 % (35.4-49); HEMOGLOBIN 11.1 GM/dL (11.7-16.9); LYMPH % 30.7 % (8-40); MCH 26.4 pg (25.7-33.7); MCHC 32.3 g/dl (32.0-35.9); MEAN CELL VOLUME 81.9 fl (80-96); MONO % 9.1 % (3.8-10.2); NEUT % 53.2 % (42.8-82.8); PLATELET COUNT 487 K/MM3 (134-434); RDW 14.2 % (11.9-15.9); WHITE BLOOD COUNT 7.4 K/mm3 (4.0-10.0)
[2018-01-11] MEDS ORDERED: PT OWN MED DRAWER 7, Y5N ONE ×2 (07:02→09:04)
[2018-01-11 07:13] LABS: ANION GAP 8 MMOL/L (8-16); BLOOD UREA NITROGEN 18 mg/dL (7-18); CALCIUM 8.8 mg/dL (8.5-10.1); CHLORIDE 104 mmol/L (98-107); CO2 26 mmol/L (21-32); CREATININE 0.7 mg/dL (0.7-1.3); GLUCOSE,RANDOM 235 mg/dL (74-106); POTASSIUM 4.6 mmol/L (3.5-5.1); SODIUM 138 mmol/L (136-145)
[2018-01-11] MEDS ORDERED: INSULIN (NOVOLOG) ASPART 100 UNITS/ML 10ML VIAL ONE ×3 (08:22→18:34)
[2018-01-11] MEDS ORDERED: PROMETHAZINE HCL 25 MG/1 ML VIAL IVPB PRN ×2 (09:01→12:05)
[2018-01-11] MEDS ORDERED: ONDANSETRON 4 MG/2 ML VIAL IVPUSH PRN ×2 (09:01→12:05)
[2018-01-11] MEDS ORDERED: LACTATED RINGERS SOLUTION 1,000 ML IV SCH (09:15)
[2018-01-11] MEDS ORDERED: PROPOFOL 20 ML ONE ×2 (09:38→10:59)
[2018-01-11] MEDS ORDERED: MIDAZOLAM HCL 2 MG/2 ML SINGLE DOSE VIAL ONE ×2 (09:39→10:33)
[2018-01-11] MEDS ORDERED: LIDOCAINE HCL/PF 1% SDV 5ML VIAL ONE ×2 (09:40→10:08)
[2018-01-11] MEDS ORDERED: BUPIVACAINE HCL/PF 0.5% (5MG/ML) 10 ML VIAL ONE (09:40)
[2018-01-11] MEDS ORDERED: BUPIVACAINE HCL/PF (5 MG/ML) 30 ML VIAL IJ ONE (10:09)
[2018-01-11] MEDS ORDERED: LIDOCAINE HCL 1%, 10 MG/ML (20ML VIAL) INF ONE (10:09)
[2018-01-11] MEDS ORDERED: ERTAPENEM SODIUM 1 GM VIAL ONE (10:19)
[2018-01-11] MEDS ORDERED: ACETAMINOPHEN 325 MG TABLET (FP) PO PRN (12:05)
[2018-01-11] MEDS ORDERED: MAG HYDROX/AL HYDROX/SIMETH 30 ML UNIT-DOSE CUP PO PRN (12:05)
[2018-01-11] MEDS ORDERED: guaiFENesin/D-M SUGAR-FREE/ACLHOL-FREE 118 ML BOTTLE PO PRN (12:05)
[2018-01-11] MEDS: LACTATED RINGERS SOLUTION 1,000 ML IV SCH (12:16)
[2018-01-11] MEDS: DAPTOMYCIN 540 MG in SODIUM CHLORIDE 50 ML IVPB SCH ×2 (14:28→14:29)
--- NOTE | 2018-01-11 15:15 | PN ---
Physical Exam: SUBJECTIVE: Patient seen and examined at bedside. No acute complaints. For surgery today. OBJECTIVE: Vital Signs Period Temp Pulse Resp BP Sys/Campos Pulse Ox Last 24 Hr 97.2 F-98.1 F 54-100 14-20 106-161/54-87 95-98 GENERAL: A&Ox3, NAD EYES: PERRLA, EOMI, sclera anicteric, conjunctiva clear ENT: oropharynx clear without exudates, moist mucous membranes. LUNGS: Breath sounds equal, clear to auscultation bilaterally, no wheezes, no crackles, no accessory muscle use. HEART: Regular rate and rhythm, S1, S2 without murmur, rub or gallop. ABDOMEN: Soft, nontender, nondistended, normoactive bowel sounds, no guarding EXTREMITIES: 2+ pulses, warm, well-perfused, R foot in dressing, RLE edema NEUROLOGICAL: Cranial nerves II through XII grossly intact. 5/5 strength in UE b /l and proximal LE b/l. Normal speech Laboratory Results - last 24 hr 01/10/18 01/11/18 01/11/18 17:38 06:30 06:30 WBC 7.4 RBC 4.20 Hgb 11.1 L Hct 34.4 L MCV 81.9 MCH 26.4 MCHC 32.3 RDW 14.2 Plt Count 487 H MPV 8.0 Absolute Neuts (auto) 3.9 Neutrophils % 53.2 D Lymphocytes % 30.7 D Monocytes % 9.1 Eosinophils % 5.6 H D Basophils % 1.4 Nucleated RBC % 0 Sodium 138 Potassium 4.6 Chloride 104 Carbon Dioxide 26 Anion Gap 8 BUN 18 Creatinine 0.7 Creat Clearance w eGFR > 60 POC Glucometer 253 Random Glucose 235 H D Calcium 8.8 01/11/18 06:45 WBC RBC Hgb Hct MCV MCH MCHC RDW Plt Count MPV Absolute Neuts (auto) Neutrophils % Lymphocytes % Monocytes % Eosinophils % Basophils % Nucleated RBC % Sodium Potassium Chloride Carbon Dioxide Anion Gap BUN Creatinine Creat Clearance w eGFR POC Glucometer 228 Random Glucose Calcium Active Medications Generic Name Dose Route Start Last Admin Trade Name Freq PRN Reason Stop Dose Admin Acetaminophen 650 mg 01/11/18 12:05 Tylenol - PO Q4H PRN fever Al Hydroxide/Mg Hydroxide 30 ml 01/11/18 12:05 Mylanta Oral Suspension - PO Q6H PRN DYSPEPSIA Ascorbic Acid 500 mg 01/12/18 10:00 Vitamin C - PO DAILY SONI Guaifenesin 10 ml 01/11/18 12:05 Diabetic Tussin Dm - PO Q6H PRN COUGH Daptomycin 540 mg/ Sodium 50 mls @ 100 mls/hr 01/11/18 13:15 01/11/18 14:29 Chloride IVPB 100 mls/hr DAILY SONI Administration Protocol Ertapenem 1 gm/ Sodium 100 mls @ 200 mls/hr 01/12/18 10:00 Chloride IVPB DAILY SONI Lactated Ringer's 1,000 mls @ 125 mls/hr 01/11/18 12:05 01/11/18 12:16 Lactated Ringers Solution IV 0 mls ASDIR SONI Administration Insulin Aspart 1 vial 01/11/18 16:30 Novolog Vial Sliding Scale - SQ TIDAC SONI Protocol Insulin Detemir 35 units 01/11/18 22:00 Levemir Vial SQ HS SONI Ondansetron HCl 4 mg 01/11/18 12:05 01/11/18 12:10 Zofran Injection IVPUSH 4 mg Q6H PRN Administration NAUSEA AND/OR VOMITING Pantoprazole Sodium 20 mg 01/12/18 10:00 Protonix - PO DAILY SONI Promethazine HCl 12.5 mg 01/11/18 12:05 Phenergan Injection - IVPB Q6H PRN NAUSEA-FOR RESCUE AFTER 15 MIN ASSESSMENT/PLAN: 62 y/o M w/ PMHx uncontrolled DM, R foot ulcers s/p 3 toe amputation in 2015 due to osteomyelitis, admitted for sepsis due to osteomyelitis. #sepsis due to osteomyelitis in right foot - 01/06 MRI with osteomyelitis at third metatarsal extending to the proximal diaphysis - underwent resection of 3rd and 5th rays of R foot today by Dr. Champion - per Dr. Champion: 24 hours complete bed rest, no removal of dressing, cont ABx - Ertapenem 1g, Daptomycin 540 mg - ID consult (Dr. Mckeon) appreciated - Vascular consult (Dr. Rosales) appreciate #chronic cough: occuring for months, treat symptomatically with PPI, cough suppressants - protonix 20mg daily, tussin prn #DM - niss, BGM ACHS - levemir 35 units hs (home dose is 45units HS) #anemia, normocytic - iron studies completed, likely anemia of chronic disease - Iron: 15 TIBC: 181 Iron saturation: 8 Ferritin 183.7 #DVT ppx - lovenox 40 sq #FEN - LR @ 125 - lytes wnl, BMP in AM - diabetic diet #dispo - med/surg Visit type - Emergency Visit Emergency Visit: No - New Patient This patient is new to me today: Yes Date on this admission: 01/11/18 - Critical Care Critical Care patient: No
[2018-01-11] MEDS: ENOXAPARIN NA (PORCINE) 40 MG/0.4 ML DISP.SYRIN SQ SCH (17:45)
--- NOTE | 2018-01-11 18:20 | PN ---
Teaching Attending Note Name of Resident: Fernandez Gomez ATTENDING PHYSICIAN STATEMENT I saw and evaluated the patient. I reviewed the resident's note and discussed the case with the resident. I agree with the resident's findings and plan as documented. SUBJECTIVE: feels better. refused exam . ASSESSMENT AND PLAN: 62 y/o man with h/o DM, right foot osteomyelitis with digit amputations, neuropathy, and chronic right foot ulcers who presented with increased drainage form wounds 1- Sepsis due to infected R foot diabetic wounds with evidence of OM in 3rd and 5th metatarsals, and 5th , and 4th proximal phalanx bones. . - cont Dato and ertapenem - s/p debridment and amputation today - follow cultures. - anticipate need for pICC line 2- DM:cont levemir and cont SSI. 3- Normocytic Anemia: iron studies indicate ACD 4- Chronic cough: unclear etiology f/u as out pt mycoplasma abs neg HLOC
[2018-01-11 21:06] LABS: BASO % 0.5 % (0-2.0); EOS % 0.8 % (0-4.5); HEMATOCRIT 34.6 % (35.4-49); HEMOGLOBIN 11.2 GM/dL (11.7-16.9); LYMPH % 11.2 % (8-40); MCH 26.7 pg (25.7-33.7); MCHC 32.5 g/dl (32.0-35.9); MEAN CELL VOLUME 82.1 fl (80-96); MEAN PLT VOLUME 7.9 fl (7.5-11.1); MONO % 5.6 % (3.8-10.2); NEUT % 81.9 % (42.8-82.8); PLATELET COUNT 556 K/MM3 (134-434); RBC 4.22 M/mm3 (4.00-5.60); RDW 13.9 % (11.9-15.9); WHITE BLOOD COUNT 11.4 K/mm3 (4.0-10.0)
[2018-01-11] MEDS: INSULIN (LEVEMIR) 100 UNITS/ML UNITS SQ SCH (22:28)
--- NOTE | 2018-01-11 23:24 | OP ---
DATE OF OPERATION: 01/11/2018 SURGEON: Mert Champion DPM JOB CAPTAIN: Hi Barreto DPM and Dr. Rodriguez, pgy3 PREOPERATIVE DIAGNOSIS: Right foot dislocated third and fifth toes with osteomyelitis. POSTOPERATIVE DIAGNOSIS: Right foot dislocated third and fifth toes with osteomyelitis. PROCEDURE: 1. Right foot 3rd ray amputation. 2. Right foot 5th ray amputation. 3. Wound debridement. ANESTHESIA: Local with MAC. PATHOLOGY: 3rd toe escobar culture proximal and distal, 5th toe bone culture proximal and distal, right foot bone and soft tissue pathology. HEMOSTASIS: Electrocautery. ESTIMATED BLOOD LOSS: 5 mL. MATERIALS USED: 3-0 nylon suture, iodoform packing, Xeroform and dry sterile dressing such as 4 x 8 sterile gauze, ABD pads, Kerlix, and Bon bandage. INJECTABLES: 20 mL of a 1:1 mixture of 1% lidocaine plain and 0.5% Marcaine plain used preoperatively. CONDITION OF THE PATIENT: Stable. DICTATED BY: Dr. Rodriguez, pgy3 FINDINGS AND PROCEDURE: The patient was brought to the operating room and placed on the operating table in a supine position. After IV sedation was initiated, exactly 20 mL of a 1:1 mixture of 1% lidocaine plain and 25% Marcaine plain and 0.5% Marcaine plain was injected throughout the surgical site of the right foot. The right foot was then scrubbed, prepped, and draped in the usual aseptic manner. Attention was first brought to the dislocated 3rd toe. Using number 15 blade, a full thickness incision was made around the 3rd digit, and using a bone clamp, the 3rd digit was helped to be removed from the operative field and sent to pathology. The incision was further increased on dorsal aspect of the 3rd metatarsal. Using a [place] elevator, the 3rd metatarsal was found in a dislocated manner as well, and the 3rd metatarsal head up to the proximal half of it was freed from its ligamentous attachment, as there was periosteum. Using sagittal saw, at the mid shaft area the 3rd metatarsal was resected, and the distal aspect with the metatarsal head was removed from the operative field, and part of it was sent for bone culture and pathology. Next attention was brought to the 5th toe. Using number 15 blade, a full thickness incision was made around the right foot 5th toe, and the 5th toe was disarticulated from the metatarsal and sent to pathology. At this time, a lateral incision was made from the metatarsal head proximally about 3 cm. Care was taken to identify the neural and vascular structures. Electrocautery was used. At this time, pathologic fracture was noted around the metatarsal head to the shaft. The fracture site was identified and freed from its ligamentous attachments and removed from the operative field. Using a [place] elevator, the remaining part of the metatarsal head and the shaft was identified and freed from its ligamentous attachments. Using sagittal saw, the 5th metatarsal was resected at the midshaft area and removed from the operative field. The bone appeared to be necrotic and soft, but the proximal aspect after the resection, the bone appeared to be hard, and the proximal margin of the 3rd and 5th metatarsal noted to be hard and healthy with no necrosis. At this time, both wounds were flushed and irrigated with copious amount of Betadine. At this time the wound was flushed with bacitracin in normal saline and irrigated copiously. 3-0 nylon suture was used to close the skin partially at the site of the 3rd metatarsal packing it distally with iodoform packing as well as the site of the 5th metatarsal was packed. At this time postoperative dressing such as Xeroform , 4x8's, 4-0 gauze, abdominal pads, Kerlix, and Bon bandage was applied to the right foot. Patient tolerated procedure and anesthesia well and was transferred to the postanesthesia care unit with vital signs stable, and vascular status intact to the right lower extremity. Dr. Rodriguez, pgy3, dictating for NADINE Portillo/[id number] MTDSamara
[2018-01-12] MEDS: INSULIN SLIDING SCALE (NOVOLOG) 1 VIAL SQ SCH ×3 (07:09→17:35)
[2018-01-12] MEDS ORDERED: ERTAPENEM SODIUM 1 GM in SODIUM CHLORIDE 100 ML IVPB SCH (10:00)
[2018-01-12] MEDS ORDERED: PT OWN MED DRAWER 7, Y5N ONE (10:06)
[2018-01-12] MEDS: PANTOPRAZOLE 20 MG TABLET (FP) PO SCH (10:18)
[2018-01-12] MEDS: ENOXAPARIN NA (PORCINE) 40 MG/0.4 ML DISP.SYRIN SQ SCH (10:18)
[2018-01-12] MEDS: ASCORBIC ACID 500 MG TABLET (FP) PO SCH (10:18)
[2018-01-12] MEDS: DAPTOMYCIN 540 MG in SODIUM CHLORIDE 50 ML IVPB SCH ×2 (11:15→11:16)
[2018-01-12] MEDS ORDERED: INSULIN (NOVOLOG) ASPART 100 UNITS/ML 10ML VIAL ONE ×2 (12:42→17:54)
--- NOTE | 2018-01-12 14:52 | PN ---
Progress Note (short form) - Note Progress Note: no fevers pod #1 s/p debridement of foot Vital Signs Period Temp Pulse Resp BP Sys/Campos Pulse Ox Last 24 Hr 97.3 F-98.4 F 76-113 18-20 110-145/62-71 cor-rrr lungs clear abd soft,nt ext foot bandaged CBC, BMP 01/11/18 20:35 01/11/18 06:30 01/08/18 01/08/18 06:00 06:00 ESR 92 H C-Reactive Protein 11.6 H MRI -+osteomyelitis Microbiology 01/11/18 11:05 Bone Gram Stain - Final 01/11/18 11:05 Bone Tissue Culture - Preliminary NO AEROBIC GROWTH, 24 HRS 01/11/18 11:05 Bone Gram Stain - Final 01/11/18 11:05 Bone Tissue Culture - Preliminary Staphylococcus Latex Coag Pos Presumptive Pseudomonas Spec. 01/11/18 11:05 Bone Gram Stain - Final 01/11/18 11:05 Bone Tissue Culture - Preliminary Staphylococcus Species 01/06/18 06:30 Serum Mycoplasma Antibody - Final 01/06/18 06:30 Serum Mycoplasma Antibody - Final 01/06/18 06:50 Blood - Peripheral Venous Blood Culture - Final NO GROWTH AFTER 5 DAYS INCUBATION 01/06/18 07:18 Blood - Peripheral Venous Blood Culture - Final NO GROWTH AFTER 5 DAYS INCUBATION 01/05/18 19:15 Foot - Right Gram Stain - Final 01/05/18 19:15 Foot - Right Wound Culture - Final Klebsiella Pneumoniae Enterobacter Cloacae Mr S Aureus Enterococcus Faecalis Proteus Vulgaris 01/05/18 20:30 Urine - Urine Clean Catch Urine Culture - Final NO GROWTH OBTAINED 01/06/18 11:00 Urine For Antigen Detection Legionella Antigen - Final 01/06/18 11:00 Urine For Antigen Detection Streptococcus pneumoniae Antigen (M - Final a/p pod #1 s/p debridement given MRI findings suspect will require skilled nursing iv antibiotics bone biopsy growing MRSA and pseudomonas continue daptomycin- hopefully switch to vancomycin if skilled nursing treatment is planned switch to zosyn to cover pseudomonas repeat esr/crp d/w resident Problem List - Problems (1) Osteomyelitis Code(s): M86.9 - OSTEOMYELITIS, UNSPECIFIED (2) Diabetic foot ulcers Code(s): E11.621 - TYPE 2 DIABETES MELLITUS WITH FOOT ULCER; L97.509 - NON- PRESSURE CHRONIC ULCER OTH PRT UNSP FOOT W UNSP SEVERITY Qualifiers: Diabetic foot ulcer location: unspecified part of foot Diabetes mellitus type: type 2 Laterality: right Non-pressure ulcer stage: unspecified non- pressure ulcer stage Qualified Code(s): E11.621 - Type 2 diabetes mellitus with foot ulcer; L97.519 - Non-pressure chronic ulcer of other part of right foot with unspecified severity
--- NOTE | 2018-01-12 15:03 | PN ---
Physical Exam: SUBJECTIVE: Patient seen and examined at bedside. No acute complaints. Pain controlled. Denies n/v/c/d, denies f/c. OBJECTIVE: Vital Signs Period Temp Pulse Resp BP Sys/Campos Pulse Ox Last 24 Hr 97.3 F-98.4 F 76-113 18-20 110-145/62-71 GENERAL: A&Ox3, NAD EYES: PERRLA, EOMI, sclera anicteric, conjunctiva clear ENT: oropharynx clear without exudates, moist mucous membranes. LUNGS: Breath sounds equal, clear to auscultation bilaterally, no wheezes, no crackles, no accessory muscle use. HEART: Regular rate and rhythm, S1, S2 without murmur, rub or gallop. ABDOMEN: Soft, nontender, nondistended, normoactive bowel sounds, no guarding EXTREMITIES: 2+ pulses, warm, well-perfused, R foot in surgical dressing NEUROLOGICAL: Cranial nerves II through XII grossly intact. 5/5 strength in UE b /l and proximal LE b/l. Normal speech Laboratory Results - last 24 hr 01/11/18 01/11/18 01/11/18 17:43 20:35 22:21 WBC 11.4 H RBC 4.22 Hgb 11.2 L Hct 34.6 L MCV 82.1 MCH 26.7 MCHC 32.5 RDW 13.9 Plt Count 556 H MPV 7.9 Absolute Neuts (auto) 9.3 H Neutrophils % 81.9 D Lymphocytes % 11.2 D Monocytes % 5.6 Eosinophils % 0.8 D Basophils % 0.5 Nucleated RBC % 0 POC Glucometer 166 258 01/12/18 01/12/18 06:52 12:14 WBC RBC Hgb Hct MCV MCH MCHC RDW Plt Count MPV Absolute Neuts (auto) Neutrophils % Lymphocytes % Monocytes % Eosinophils % Basophils % Nucleated RBC % POC Glucometer 224 180 Active Medications Generic Name Dose Route Start Last Admin Trade Name Freq PRN Reason Stop Dose Admin Acetaminophen 650 mg 01/11/18 12:05 Tylenol - PO Q4H PRN fever Al Hydroxide/Mg Hydroxide 30 ml 01/11/18 12:05 Mylanta Oral Suspension - PO Q6H PRN DYSPEPSIA Ascorbic Acid 500 mg 01/12/18 10:00 01/12/18 10:18 Vitamin C - PO 500 mg DAILY SONI Administration Enoxaparin Sodium 40 mg 01/11/18 15:30 01/12/18 10:18 Lovenox - SQ Not Given DAILY SONI Guaifenesin 10 ml 01/11/18 12:05 Diabetic Tussin Dm - PO Q6H PRN COUGH Daptomycin 540 mg/ Sodium 50 mls @ 100 mls/hr 01/11/18 13:15 01/12/18 11:16 Chloride IVPB 100 mls/hr DAILY SONI Administration Protocol Lactated Ringer's 1,000 mls @ 125 mls/hr 01/11/18 12:05 01/11/18 12:16 Lactated Ringers Solution IV 0 mls ASDIR SONI Administration Piperacillin Sod/Tazobactam 100 mls @ 200 mls/hr 01/12/18 18:00 Sod 4.5 gm/ Dextrose IVPB Q8H-IV [facility] Protocol Insulin Aspart 1 vial 01/11/18 16:30 01/12/18 12:44 Novolog Vial Sliding Scale - SQ 2 units TIDAC [facility] Administration Protocol Insulin Detemir 35 units 01/11/18 22:00 01/11/18 22:28 Levemir Vial SQ 35 unit HS SONI Administration Ondansetron HCl 4 mg 01/11/18 12:05 01/11/18 12:10 Zofran Injection IVPUSH 4 mg Q6H PRN Administration NAUSEA AND/OR VOMITING Pantoprazole Sodium 20 mg 01/12/18 10:00 01/12/18 10:18 Protonix - PO 20 mg DAILY SONI Administration Promethazine HCl 12.5 mg 01/11/18 12:05 Phenergan Injection - IVPB Q6H PRN NAUSEA-FOR RESCUE AFTER 15 MIN ASSESSMENT/PLAN: 62 y/o M w/ PMHx uncontrolled DM, R foot ulcers s/p 3 toe amputation in 2016 due to osteomyelitis, admitted for sepsis due to osteomyelitis. #osteomyelitis in right foot - 01/06 MRI with osteomyelitis at third metatarsal extending to the proximal diaphysis - POD #1 s/p debridement/resection of 3rd and 5th rays of R foot today by Dr. Champion - bone culture grew MRSA and Pseudomonas - Per Dr. cMkeon, cont daptomycin and switch ertapenem to zosyn to cover Pseudo - Per Dr. Mckeon, repeat ESR/CRP - Consider Vancomycin for assisted Tx - ID consult (Dr. Mckeon) appreciated - Vascular consult (Dr. Rosales) appreciate #chronic cough: occuring for months, treat symptomatically with PPI, cough suppressants - protonix 20mg daily, tussin prn #DM - niss, BGM ACHS - levemir 35 units hs (home dose is 45units HS) #anemia, normocytic - iron studies completed, likely anemia of chronic disease - Iron: 15 TIBC: 181 Iron saturation: 8 Ferritin 183.7 #DVT ppx - lovenox 40 sq #FEN - LR @ 125 - lytes wnl, BMP in AM - diabetic diet #dispo - med/surg Visit type - Emergency Visit Emergency Visit: No - New Patient This patient is new to me today: No - Critical Care Critical Care patient: No
[2018-01-12] MEDS ORDERED: PIPERACILLIN/TAZOBACTAM 4.5 GM VIAL IVPB ONE (17:40)
[2018-01-12] MEDS ORDERED: DEXTROSE 5%-WATER 100 ML IVPB ONE (17:40)
[2018-01-12] MEDS: PIPERACILLIN/TAZOB 4.5 GM 4.5 GM in DEXTROSE 5%-WATER 100 ML IVPB SCH (17:46)
--- NOTE | 2018-01-12 17:48 | PN ---
Progress Note, Physician Chief Complaint: pod#1. No pain. vss. Tmax 98.4 History of Present Illness: POD#1. s/p 3rd ray resection, 5th ray resection debridement bone and soft tissue right foot. - Current Medication List Current Medications: Active Medications Acetaminophen (Tylenol -) 650 mg PO Q4H PRN PRN Reason: fever Al Hydroxide/Mg Hydroxide (Mylanta Oral Suspension -) 30 ml PO Q6H PRN PRN Reason: DYSPEPSIA Ascorbic Acid (Vitamin C -) 500 mg PO DAILY [facility] Last Admin: 01/12/18 10:18 Dose: 500 mg Enoxaparin Sodium (Lovenox -) 40 mg SQ DAILY SONI Last Admin: 01/12/18 10:18 Dose: Not Given Guaifenesin (Diabetic Tussin Dm -) 10 ml PO Q6H PRN PRN Reason: COUGH Daptomycin 540 mg/ Sodium (Chloride) 50 mls @ 100 mls/hr IVPB DAILY SONI; Protocol Last Admin: 01/12/18 11:16 Dose: 100 mls/hr Lactated Ringer's (Lactated Ringers Solution) 1,000 mls @ 125 mls/hr IV ASDIR SONI Last Admin: 01/11/18 12:16 Dose: 0 mls Piperacillin Sod/Tazobactam (Sod 4.5 gm/ Dextrose) 100 mls @ 200 mls/hr IVPB Q8H-IV SONI; Protocol Last Admin: 01/12/18 17:46 Dose: 200 mls/hr Insulin Aspart (Novolog Vial Sliding Scale -) 1 vial SQ TIDAC SONI; Protocol Last Admin: 01/12/18 17:35 Dose: 6 units Insulin Detemir (Levemir Vial) 35 units SQ HS [facility] Last Admin: 01/11/18 22:28 Dose: 35 unit Ondansetron HCl (Zofran Injection) 4 mg IVPUSH Q6H PRN PRN Reason: NAUSEA AND/OR VOMITING Last Admin: 01/11/18 12:10 Dose: 4 mg Pantoprazole Sodium (Protonix -) 20 mg PO DAILY [facility] Last Admin: 01/12/18 10:18 Dose: 20 mg Promethazine HCl (Phenergan Injection -) 12.5 mg IVPB Q6H PRN PRN Reason: NAUSEA-FOR RESCUE AFTER 15 MIN - Objective Vital Signs: Vital Signs Temperature 98.4 F 08/28/18 14:42 Pulse Rate 78 01/12/18 14:42 Respiratory Rate 18 01/12/18 14:42 Blood Pressure 145/65 01/12/18 14:42 O2 Sat by Pulse Oximetry (%) 95 01/11/18 13:28 Labs: CBC, BMP 01/11/18 20:35 01/11/18 06:30 INR, PTT INR 1.16 (0.83-1.09) H 01/05/18 17:56 Problem List - Problems (1) Diabetic foot ulcers Assessment/Plan: clean dry intact dressing no pain Dressing change tomorrow. ID on case. Vascular on case. HBO outpatient. will follow Code(s): E11.621 - TYPE 2 DIABETES MELLITUS WITH FOOT ULCER; L97.509 - NON- PRESSURE CHRONIC ULCER OTH PRT UNSP FOOT W UNSP SEVERITY Qualifiers: Diabetic foot ulcer location: unspecified part of foot Diabetes mellitus type: type 2 Laterality: right Non-pressure ulcer stage: unspecified non- pressure ulcer stage Qualified Code(s): E11.621 - Type 2 diabetes mellitus with foot ulcer; L97.519 - Non-pressure chronic ulcer of other part of right foot with unspecified severity
--- NOTE | 2018-01-12 18:51 | PN ---
Teaching Attending Note Name of Resident: Fernandez Gomez ATTENDING PHYSICIAN STATEMENT I saw and evaluated the patient. I reviewed the resident's note and discussed the case with the resident. I agree with the resident's findings and plan as documented. SUBJECTIVE: No fever or chills. no cough . no pain OBJECTIVE: NAD Cv: RRR Lungs: CTAB Ext : R leg edema . foot in intact clean dressing A/P 2 y/o man with h/o DM, right foot osteomyelitis with digit amputations, neuropathy, and chronic right foot ulcers who presented with increased drainage form wounds 1- Sepsis due to infected R foot diabetic wounds with evidence of OM in 3rd and 5th metatarsals, and 5th , and 4th proximal phalanx bones. . s/p debridment and amputation POD1 - cx reviewed. - zosyn and dapto today - follow cultures. - anticipate need for PICC line 2- DM:cont levemir and cont SSI. 3- Normocytic Anemia: iron studies indicate ACD 4- Chronic cough: unclear etiology f/u as out pt HLOC
[2018-01-12] MEDS: INSULIN (LEVEMIR) 100 UNITS/ML UNITS SQ SCH (21:47)
[2018-01-12] MEDS: LACTATED RINGERS SOLUTION 1,000 ML IV SCH (21:47)
[2018-01-13] MEDS: PIPERACILLIN/TAZOB 4.5 GM 4.5 GM in DEXTROSE 5%-WATER 100 ML IVPB SCH ×3 (02:11→17:14)
[2018-01-13] MEDS ORDERED: PIPERACILLIN/TAZOBACTAM 4.5 GM VIAL IVPB ONE ×4 (03:42→23:22)
[2018-01-13] MEDS ORDERED: DEXTROSE 5%-WATER 100 ML IVPB ONE ×4 (03:43→23:22)
[2018-01-13] MEDS: COLLAGENASE CLOSTRIDIUM HIST. 30 GRAMS TUBE TP SCH (07:13)
[2018-01-13] MEDS: ERTAPENEM SODIUM 1 GM in SODIUM CHLORIDE 50 ML IVPB SCH (07:13)
[2018-01-13] MEDS: PANTOPRAZOLE 20 MG TABLET (FP) PO SCH ×2 (07:13→10:39)
[2018-01-13] MEDS: INSULIN SLIDING SCALE (NOVOLOG) 1 VIAL SQ SCH ×4 (07:14→17:13)
[2018-01-13] MEDS: ASCORBIC ACID 500 MG TABLET (FP) PO SCH ×2 (07:14→10:39)
--- NOTE | 2018-01-13 09:23 | PN ---
Teaching Attending Note Name of Resident: Ruth Montes De Oca ATTENDING PHYSICIAN STATEMENT I saw and evaluated the patient. I reviewed the resident's note and discussed the case with the resident. I agree with the resident's findings and plan as documented. SUBJECTIVE: Patient is comfortable with no acute distress. OBJECTIVE: Vital Signs Temperature 98.2 F 01/12/18 22:00 Pulse Rate 72 01/12/18 22:00 Respiratory Rate 20 01/12/18 22:00 Blood Pressure 126/68 01/12/18 22:00 O2 Sat by Pulse Oximetry (%) 95 01/11/18 13:28 CBCD WBC 11.4 K/mm3 (4.0-10.0) H 01/11/18 20:35 RBC 4.22 M/mm3 (4.00-5.60) 01/11/18 20:35 Hgb 11.2 GM/dL (11.7-16.9) L 01/11/18 20:35 Hct 34.6 % (35.4-49) L 01/11/18 20:35 MCV 82.1 fl (80-96) 01/11/18 20:35 MCHC 32.5 g/dl (32.0-35.9) 01/11/18 20:35 RDW 13.9 % (11.9-15.9) 01/11/18 20:35 Plt Count 556 K/MM3 (134-434) H 01/11/18 20:35 MPV 7.9 fl (7.5-11.1) 01/11/18 20:35 CMP Sodium 138 mmol/L (136-145) 01/11/18 06:30 Potassium 4.6 mmol/L (3.5-5.1) 01/11/18 06:30 Chloride 104 mmol/L (98-107) 01/11/18 06:30 Carbon Dioxide 26 mmol/L (21-32) 01/11/18 06:30 Anion Gap 8 MMOL/L (8-16) 01/11/18 06:30 BUN 18 mg/dL (7-18) 01/11/18 06:30 Creatinine 0.7 mg/dL (0.7-1.3) 01/11/18 06:30 Creat Clearance w eGFR > 60 (>60) 01/11/18 06:30 Random Glucose 235 mg/dL (74-106) H D 01/11/18 06:30 Calcium 8.8 mg/dL (8.5-10.1) 01/11/18 06:30 Total Bilirubin 0.3 mg/dL (0.2-1.0) 01/05/18 17:56 AST 10 U/L (15-37) L 01/05/18 17:56 ALT 15 U/L (12-78) 01/05/18 17:56 Alkaline Phosphatase 84 U/L (45-117) 01/05/18 17:56 Total Protein 7.8 g/dl (6.4-8.2) 01/05/18 17:56 Albumin 3.0 g/dl (3.4-5.0) L 01/05/18 17:56 CARDIAC ENZYMES Creatine Kinase 53 IU/L (39-308) 01/05/18 17:56 Troponin I < 0.02 ng/ml (0.00-0.05) 01/05/18 17:56 Current Medications Generic Name Dose Route Start Last Admin Trade Name Freq PRN Reason Stop Dose Admin Acetaminophen 650 mg 01/11/18 12:05 Tylenol - PO Q4H PRN fever Al Hydroxide/Mg Hydroxide 30 ml 01/11/18 12:05 Mylanta Oral Suspension - PO Q6H PRN DYSPEPSIA Ascorbic Acid 500 mg 01/12/18 10:00 01/12/18 10:18 Vitamin C - PO 500 mg DAILY SONI Administration Enoxaparin Sodium 40 mg 01/11/18 15:30 01/12/18 10:18 Lovenox - SQ Not Given DAILY SONI Guaifenesin 10 ml 01/11/18 12:05 Diabetic Tussin Dm - PO Q6H PRN COUGH Daptomycin 540 mg/ Sodium 50 mls @ 100 mls/hr 01/11/18 13:15 01/12/18 11:16 Chloride IVPB 100 mls/hr DAILY SONI Administration Protocol Lactated Ringer's 1,000 mls @ 125 mls/hr 01/11/18 12:05 01/12/18 21:47 Lactated Ringers Solution IV 125 mls/hr ASDIR SONI Administration Piperacillin Sod/Tazobactam 100 mls @ 200 mls/hr 01/12/18 18:00 01/13/18 02: 11 Sod 4.5 gm/ Dextrose IVPB 200 mls/hr Q8H-IV SONI Administration Protocol Insulin Aspart 1 vial 01/11/18 16:30 01/13/18 08:29 Novolog Vial Sliding Scale - SQ Not Given [facility] Protocol Insulin Detemir 35 units 01/11/18 22:00 01/12/18 21:47 Levemir Vial SQ 35 units HS SONI Administration Ondansetron HCl 4 mg 01/11/18 12:05 01/11/18 12:10 Zofran Injection IVPUSH 4 mg Q6H PRN Administration NAUSEA AND/OR VOMITING Pantoprazole Sodium 20 mg 01/12/18 10:00 01/12/18 10:18 Protonix - PO 20 mg DAILY SONI Administration Promethazine HCl 12.5 mg 01/11/18 12:05 Phenergan Injection - IVPB Q6H PRN NAUSEA-FOR RESCUE AFTER 15 MIN Home Medications Medication Instructions Recorded Insulin Glargine,Hum.rec.anlog 42 units SQ HS 01/01/18 [Basaglar Kwikpen U-100] Lactobacillus Acidophilus [Bacid -] 1 cap PO BID 01/01/18 Omeprazole Magnesium [Prilosec Otc] 20 mg PO DAILY 01/01/18 Acetaminophen [Tylenol] 650 mg PO Q6H PRN 01/05/18 Ascorbic Acid [Vitamin C] 500 mg PO DAILY 01/05/18 Azelastine HCl 137 mcg NS BID 01/05/18 Cranberry Fruit Extract [Cranberry] 405 mg PO DAILY 01/05/18 Insulin Lispro [Admelog Solostar] 0 unit SQ ASDIR 01/05/18 Mag Hydrox/Al Hydrox/Simeth 30 ml PO Q6H PRN 01/05/18 [Mylanta *Suspension*] Multivitamin [One Daily] 1 each PO DAILY 01/05/18 Microbiology 01/11/18 11:05 Bone Gram Stain - Final 01/11/18 11:05 Bone Tissue Culture - Preliminary Staphylococcus Species 01/11/18 11:05 Bone Gram Stain - Final 01/11/18 11:05 Bone Tissue Culture - Preliminary NO AEROBIC GROWTH, 24 HRS 01/11/18 11:05 Bone Gram Stain - Final 01/11/18 11:05 Bone Tissue Culture - Preliminary Staphylococcus Latex Coag Pos Presumptive Pseudomonas Spec. 01/06/18 06:30 Serum Mycoplasma Antibody - Final 01/06/18 06:30 Serum Mycoplasma Antibody - Final 01/06/18 06:50 Blood - Peripheral Venous Blood Culture - Final NO GROWTH AFTER 5 DAYS INCUBATION 01/06/18 07:18 Blood - Peripheral Venous Blood Culture - Final NO GROWTH AFTER 5 DAYS INCUBATION 01/05/18 19:15 Foot - Right Gram Stain - Final 01/05/18 19:15 Foot - Right Wound Culture - Final Klebsiella Pneumoniae Enterobacter Cloacae Mr S Aureus Enterococcus Faecalis Proteus Vulgaris 01/05/18 20:30 Urine - Urine Clean Catch Urine Culture - Final NO GROWTH OBTAINED 01/06/18 11:00 Urine For Antigen Detection Legionella Antigen - Final 01/06/18 11:00 Urine For Antigen Detection Streptococcus pneumoniae Antigen (M - Final PE: Per resident's note ASSESSMENT AND PLAN: Patient is a 62 y/o man with h/o DM, right foot osteomyelitis with digit amputations, neuropathy, and chronic right foot ulcers who presented with increased drainage form wounds. # Sepsis due to infected R foot diabetic wounds with evidence of OM in 3rd and 5th metatarsals, and 5th ,and 4th proximal phalanx bones. s/p debridment and amputation , patient will need antibiotic for total of 6 weeks. On Zosyn and Daptomycin waiting for the culture result. Picc line for total of 6 weeks. # DM:cont levemir and cont SSI. # Normocytic Anemia: iron studies indicate ACD # Chronic cough: unclear etiology f/u as out pt Dvt PX : lOVENOX will wait for culture result
--- NOTE | 2018-01-13 09:57 | PN ---
Progress Note, Physician Chief Complaint: Pt A&Ox3; he is glad right remaining toes were amputated, and feels he will be able to walk better now. History of Present Illness: Patient is a 62 year old male with a significant past medical history of IDDM and neuropathy who presents to the ED with complaints of chronic right lower extremity foot wounds that began to develop earlier this month. Patient reports experiencing chronic wound on his right foot that he states has been gradually increasing in warmth and erythema over time prompting him to go to the wound care center for it. He reports wound care center advising him to come into the ED for further evaluation of the extremity. Patient reports experiencing associated symptoms of low grade fever of 100.2 and non productive cough. Denies chest pain, Sob. Denies nausea, vomiting. Denies fevers, chills. Denies Contact with sick individuals, out of state travelling. Denies dysuria, hematuria. Denies constipation, diarrhea. Denies any other Allergies: None Social history: No smoking. No alcohol. No illicit drugs. Surgical history: None PMD: None - Current Medication List Current Medications: Active Medications Acetaminophen (Tylenol -) 650 mg PO Q4H PRN PRN Reason: fever Al Hydroxide/Mg Hydroxide (Mylanta Oral Suspension -) 30 ml PO Q6H PRN PRN Reason: DYSPEPSIA Ascorbic Acid (Vitamin C -) 500 mg PO DAILY SONI Last Admin: 01/12/18 10:18 Dose: 500 mg Enoxaparin Sodium (Lovenox -) 40 mg SQ DAILY SONI Last Admin: 01/12/18 10:18 Dose: Not Given Guaifenesin (Diabetic Tussin Dm -) 10 ml PO Q6H PRN PRN Reason: COUGH Daptomycin 540 mg/ Sodium (Chloride) 50 mls @ 100 mls/hr IVPB DAILY SONI; Protocol Last Admin: 01/12/18 11:16 Dose: 100 mls/hr Lactated Ringer's (Lactated Ringers Solution) 1,000 mls @ 125 mls/hr IV ASDIR SONI Last Admin: 01/12/18 21:47 Dose: 125 mls/hr Piperacillin Sod/Tazobactam (Sod 4.5 gm/ Dextrose) 100 mls @ 200 mls/hr IVPB Q8H-IV SONI; Protocol Last Admin: 01/13/18 02:11 Dose: 200 mls/hr Insulin Aspart (Novolog Vial Sliding Scale -) 1 vial SQ TIDAC [facility]; Protocol Last Admin: 01/13/18 08:29 Dose: Not Given Insulin Detemir (Levemir Vial) 35 units SQ HS [facility] Last Admin: 01/12/18 21:47 Dose: 35 units Ondansetron HCl (Zofran Injection) 4 mg IVPUSH Q6H PRN PRN Reason: NAUSEA AND/OR VOMITING Last Admin: 01/11/18 12:10 Dose: 4 mg Pantoprazole Sodium (Protonix -) 20 mg PO DAILY [facility] Last Admin: 01/12/18 10:18 Dose: 20 mg Promethazine HCl (Phenergan Injection -) 12.5 mg IVPB Q6H PRN PRN Reason: NAUSEA-FOR RESCUE AFTER 15 MIN - Objective Vital Signs: Vital Signs Temperature 98.2 F 01/12/18 22:00 Pulse Rate 72 01/12/18 22:00 Respiratory Rate 20 01/12/18 22:00 Blood Pressure 126/68 01/12/18 22:00 O2 Sat by Pulse Oximetry (%) 95 01/11/18 13:28 Labs: INR, PTT INR 1.16 (0.83-1.09) H 01/05/18 17:56 Problem List - Problems (1) Diabetic foot ulcers Assessment/Plan: f/u with vasular surgeon, alfie valdes MD. Code(s): E11.621 - TYPE 2 DIABETES MELLITUS WITH FOOT ULCER; L97.509 - NON- PRESSURE CHRONIC ULCER OTH PRT UNSP FOOT W UNSP SEVERITY Qualifiers: Diabetic foot ulcer location: unspecified part of foot Diabetes mellitus type: type 2 Laterality: right Non-pressure ulcer stage: unspecified non- pressure ulcer stage Qualified Code(s): E11.621 - Type 2 diabetes mellitus with foot ulcer; L97.519 - Non-pressure chronic ulcer of other part of right foot with unspecified severity (2) Fever Code(s): R50.9 - FEVER, UNSPECIFIED Qualifiers: Fever type: unspecified Qualified Code(s): R50.9 - Fever, unspecified (3) Osteomyelitis Code(s): M86.9 - OSTEOMYELITIS, UNSPECIFIED (4) Hyperlipidemia Assessment/Plan: If possible, start statin to keep LDL cholesterol < 70 mg/dL (pt is also on daptomycin, which may be a relative contraindication). Code(s): E78.5 - HYPERLIPIDEMIA, UNSPECIFIED (5) [place] cardiac risk >20% in next 10 years Assessment/Plan: Statin, unless contraindicated (pt is presently on daptomycin) to keep LDL cholesterol well below 70 mg/dL. When stable, will need stress MIBI, unless done in the recent past. Code(s): Z91.89 - OTH PERSONAL RISK FACTORS, NOT ELSEWHERE CLASSIFIED
[2018-01-13 10:09] LABS: BASO % 1.2 % (0-2.0); EOS % 3.6 % (0-4.5); HEMOGLOBIN 10.7 GM/dL (11.7-16.9); LYMPH % 27.7 % (8-40); MCH 26.8 pg (25.7-33.7); MCHC 32.4 g/dl (32.0-35.9); MEAN CELL VOLUME 82.7 fl (80-96); MEAN PLT VOLUME 7.9 fl (7.5-11.1); MONO % 10.4 % (3.8-10.2); NEUT % 57.1 % (42.8-82.8); PLATELET COUNT 500 K/MM3 (134-434); RDW 14.3 % (11.9-15.9); WHITE BLOOD COUNT 7.8 K/mm3 (4.0-10.0)
[2018-01-13 10:26] LABS: ANION GAP 5 MMOL/L (8-16); BLOOD UREA NITROGEN 13 mg/dL (7-18); CALCIUM 8.5 mg/dL (8.5-10.1); CHLORIDE 101 mmol/L (98-107); CO2 29 mmol/L (21-32); GLUCOSE,RANDOM 292 mg/dL (74-106); POTASSIUM 4.5 mmol/L (3.5-5.1); SODIUM 135 mmol/L (136-145)
[2018-01-13 10:27] LABS: CREATININE 0.8 mg/dL (0.7-1.3)
[2018-01-13] MEDS ORDERED: PT OWN MED DRAWER 7, Y5N ONE (10:29)
[2018-01-13] MEDS: ENOXAPARIN NA (PORCINE) 40 MG/0.4 ML DISP.SYRIN SQ SCH ×2 (10:39→14:18)
--- NOTE | 2018-01-13 12:14 | PN ---
Progress Note, Physician History of Present Illness: Patient is a 62 year old male with a significant past medical history of IDDM and neuropathy who presents to the ED with complaints of chronic right lower extremity foot wounds that began to develop earlier this month. Patient reports experiencing chronic wound on his right foot that he states has been gradually increasing in warmth and erythema over time prompting him to go to the wound care center for it. He reports wound care center advising him to come into the ED for further evaluation of the extremity. Patient reports experiencing associated symptoms of low grade fever of 100.2 and non productive cough. Denies chest pain, Sob. Denies nausea, vomiting. Denies fevers, chills. Denies Contact with sick individuals, out of state travelling. Denies dysuria, hematuria. Denies constipation, diarrhea. Denies any other Allergies: None Social history: No smoking. No alcohol. No illicit drugs. Surgical history: None PMD: None - Current Medication List Current Medications: Active Medications Acetaminophen (Tylenol -) 650 mg PO Q4H PRN PRN Reason: fever Al Hydroxide/Mg Hydroxide (Mylanta Oral Suspension -) 30 ml PO Q6H PRN PRN Reason: DYSPEPSIA Ascorbic Acid (Vitamin C -) 500 mg PO DAILY [facility] Last Admin: 01/13/18 10:39 Dose: 500 mg Enoxaparin Sodium (Lovenox -) 40 mg SQ DAILY [facility] Last Admin: 01/13/18 10:39 Dose: Not Given Guaifenesin (Diabetic Tussin Dm -) 10 ml PO Q6H PRN PRN Reason: COUGH Daptomycin 540 mg/ Sodium (Chloride) 50 mls @ 100 mls/hr IVPB DAILY [facility]; Protocol Last Admin: 01/12/18 11:16 Dose: 100 mls/hr Lactated Ringer's (Lactated Ringers Solution) 1,000 mls @ 125 mls/hr IV ASDIR SONI Last Admin: 01/12/18 21:47 Dose: 125 mls/hr Piperacillin Sod/Tazobactam (Sod 4.5 gm/ Dextrose) 100 mls @ 200 mls/hr IVPB Q8H-IV SONI; Protocol Last Admin: 01/13/18 10:39 Dose: 200 mls/hr Insulin Aspart (Novolog Vial Sliding Scale -) 1 vial SQ TIDAC [facility]; Protocol Last Admin: 01/13/18 08:29 Dose: Not Given Insulin Detemir (Levemir Vial) 35 units SQ HS [facility]I Last Admin: 01/12/18 21:47 Dose: 35 units Ondansetron HCl (Zofran Injection) 4 mg IVPUSH Q6H PRN PRN Reason: NAUSEA AND/OR VOMITING Last Admin: 01/11/18 12:10 Dose: 4 mg Pantoprazole Sodium (Protonix -) 20 mg PO DAILY SONI Last Admin: 01/13/18 10:39 Dose: 20 mg Promethazine HCl (Phenergan Injection -) 12.5 mg IVPB Q6H PRN PRN Reason: NAUSEA-FOR RESCUE AFTER 15 MIN - Objective Vital Signs: Vital Signs Temperature 98.8 F 01/13/18 10:00 Pulse Rate 80 01/13/18 10:00 Respiratory Rate 18 01/13/18 10:00 Blood Pressure 140/80 01/13/18 10:00 O2 Sat by Pulse Oximetry (%) 95 01/11/18 13:28 Eyes: Yes: WNL, Conjunctiva Clear, EOM Intact HENT: Yes: WNL, Atraumatic, Normocephalic Neck: Yes: WNL, Supple, Trachea Midline Cardiovascular: Yes: WNL, Regular Rate and Rhythm Respiratory: Yes: WNL, Regular, CTA Bilaterally Gastrointestinal: Yes: WNL, Normal Bowel Sounds Genitourinary: Yes: WNL Musculoskeletal: Yes: WNL Extremities: Yes: Amputation Edema: Yes Integumentary: Yes: WNL Neurological: Yes: WNL, Alert, Oriented ...Motor Strength: WNL Psychiatric: Yes: WNL Labs: CBC, BMP 01/13/18 09:40 01/13/18 09:40 INR, PTT INR 1.16 (0.83-1.09) H 01/05/18 17:56 Assessment/Plan - Problems (1) Diabetic foot ulcers Assessment/Plan: f/u with vasular surgeon, alfie valdes MD. Code(s): E11.621 - TYPE 2 DIABETES MELLITUS WITH FOOT ULCER; L97.509 - NON- PRESSURE CHRONIC ULCER OTH PRT UNSP FOOT W UNSP SEVERITY Qualifiers: Diabetic foot ulcer location: unspecified part of foot Diabetes mellitus type: type 2 Laterality: right Non-pressure ulcer stage: unspecified non- pressure ulcer stage Qualified Code(s): E11.621 - Type 2 diabetes mellitus with foot ulcer; L97.519 - Non-pressure chronic ulcer of other part of right foot with unspecified severity (2) Fever Code(s): R50.9 - FEVER, UNSPECIFIED Qualifiers: Fever type: unspecified Qualified Code(s): R50.9 - Fever, unspecified (3) Osteomyelitis Code(s): M86.9 - OSTEOMYELITIS, UNSPECIFIED (4) Hyperlipidemia Assessment/Plan: If possible, start statin to keep LDL cholesterol < 70 mg/dL (pt is also on daptomycin, which may be a relative contraindication). Code(s): E78.5 - HYPERLIPIDEMIA, UNSPECIFIED (5) [place] cardiac risk >20% in next 10 years Assessment/Plan: Statin, unless contraindicated (pt is presently on daptomycin) to keep LDL cholesterol well below 70 mg/dL. When stable, will need stress MIBI, unless done in the recent past. Code(s): Z91.89 - OTH PERSONAL RISK FACTORS, NOT ELSEWHERE CLASSIFIED
[2018-01-13] MEDS: DAPTOMYCIN 540 MG in SODIUM CHLORIDE 50 ML IVPB SCH (12:18)
[2018-01-13] MEDS: LACTATED RINGERS SOLUTION 1,000 ML IV SCH (12:20)
--- NOTE | 2018-01-13 12:44 | PN ---
Physical Exam: SUBJECTIVE: Patient seen and examined at bedside. No acute complaints. Pain controlled. Denies n/v/c/d, denies f/c. OBJECTIVE: Vital Signs Period Temp Pulse Resp BP Sys/Campos Pulse Ox Last 24 Hr 98.2 F-98.8 F 72-80 18-20 126-145/65-80 GENERAL: A&Ox3, NAD. Otherwise refuses physical examination. Laboratory Results - last 24 hr 01/12/18 01/12/18 01/13/18 17:35 21:44 09:40 WBC RBC Hgb Hct MCV MCH MCHC RDW Plt Count MPV Absolute Neuts (auto) Neutrophils % Lymphocytes % Monocytes % Eosinophils % Basophils % Nucleated RBC % ESR Sodium 135 L Potassium 4.5 Chloride 101 Carbon Dioxide 29 Anion Gap 5 L BUN 13 Creatinine 0.8 Creat Clearance w eGFR > 60 POC Glucometer 237 259 Random Glucose 292 H D Calcium 8.5 C-Reactive Protein 4.8 H 01/13/18 01/13/18 01/13/18 09:40 09:40 12:15 WBC 7.8 RBC 4.00 Hgb 10.7 L Hct 33.0 L MCV 82.7 MCH 26.8 MCHC 32.4 RDW 14.3 Plt Count 500 H MPV 7.9 Absolute Neuts (auto) 4.5 Neutrophils % 57.1 D Lymphocytes % 27.7 D Monocytes % 10.4 H D Eosinophils % 3.6 D Basophils % 1.2 Nucleated RBC % 0 ESR 78 H Sodium Potassium Chloride Carbon Dioxide Anion Gap BUN Creatinine Creat Clearance w eGFR POC Glucometer 347 Random Glucose Calcium C-Reactive Protein Active Medications Generic Name Dose Route Start Last Admin Trade Name Jasbirq PRN Reason Stop Dose Admin Acetaminophen 650 mg 01/11/18 12:05 Tylenol - PO Q4H PRN fever Al Hydroxide/Mg Hydroxide 30 ml 01/11/18 12:05 Mylanta Oral Suspension - PO Q6H PRN DYSPEPSIA Ascorbic Acid 500 mg 01/12/18 10:00 01/13/18 10:39 Vitamin C - PO 500 mg DAILY SONI Administration Enoxaparin Sodium 40 mg 01/11/18 15:30 01/13/18 10:39 Lovenox - SQ Not Given DAILY SONI Guaifenesin 10 ml 01/11/18 12:05 Diabetic Tussin Dm - PO Q6H PRN COUGH Daptomycin 540 mg/ Sodium 50 mls @ 100 mls/hr 01/11/18 13:15 01/13/18 12:18 Chloride IVPB 100 mls/hr DAILY SONI Administration Protocol Lactated Ringer's 1,000 mls @ 125 mls/hr 01/11/18 12:05 01/13/18 12:20 Lactated Ringers Solution IV Not Given ASDIR SONI Piperacillin Sod/Tazobactam 100 mls @ 200 mls/hr 01/12/18 18:00 01/13/18 10: 39 Sod 4.5 gm/ Dextrose IVPB 200 mls/hr Q8H-IV SONI Administration Protocol Insulin Aspart 1 vial 01/11/18 16:30 01/13/18 12:19 Novolog Vial Sliding Scale - SQ 8 units TIDAC SONI Administration Protocol Insulin Detemir 35 units 01/11/18 22:00 01/12/18 21:47 Levemir Vial SQ 35 units HS SONI Administration Ondansetron HCl 4 mg 01/11/18 12:05 01/11/18 12:10 Zofran Injection IVPUSH 4 mg Q6H PRN Administration NAUSEA AND/OR VOMITING Pantoprazole Sodium 20 mg 01/12/18 10:00 01/13/18 10:39 Protonix - PO 20 mg DAILY SONI Administration Promethazine HCl 12.5 mg 01/11/18 12:05 Phenergan Injection - IVPB Q6H PRN NAUSEA-FOR RESCUE AFTER 15 MIN ASSESSMENT/PLAN: 62 y/o M w/ PMHx uncontrolled DM, R foot ulcers s/p 3 toe amputation in 2016 due to osteomyelitis, admitted for sepsis due to osteomyelitis. #osteomyelitis in right foot - 01/06 MRI with osteomyelitis at third metatarsal extending to the proximal diaphysis - POD #2 s/p debridement/resection of 3rd and 5th rays of R foot by Dr. Champion - bone culture grew MRSA and Pseudomonas - Per Dr. Mckeon, cont daptomycin and switch ertapenem to zosyn to cover Pseudo - Per Dr. Mckeon, repeat ESR/CRP - Consider Vancomycin for carriage feeder Tx - ID consult (Dr. Mckeon) appreciated - Vascular consult (Dr. Rosales) appreciated #chronic cough: occuring for months, treat symptomatically with PPI, cough suppressants - protonix 20mg daily, tussin prn #DM - niss, BGM ACHS - levemir 35 units hs (home dose is 45units HS) #anemia, normocytic - iron studies completed, likely anemia of chronic disease - Iron: 15 TIBC: 181 Iron saturation: 8 Ferritin 183.7 #DVT ppx - lovenox 40 sq #FEN - LR @ 125 - lytes wnl, BMP in AM - diabetic diet #dispo - med/surg Visit type - Emergency Visit Emergency Visit: No - New Patient This patient is new to me today: No - Critical Care Critical Care patient: No
--- NOTE | 2018-01-13 13:18 | PN ---
Progress Note (short form) - Note Progress Note: POD#2. No pain. VSS. Tmax 98.4. +dressing intact, +packing in place, -mal odor, -drainage, wbc=7.8 om normal post op Dressing changed. Packing pulled and not replaced. Betadine dressing applied forefoot, santyl right heel. will follow. Post op shoe to both feet. Problem List - Problems (1) Diabetic foot ulcers Code(s): E11.621 - TYPE 2 DIABETES MELLITUS WITH FOOT ULCER; L97.509 - NON- PRESSURE CHRONIC ULCER OTH PRT UNSP FOOT W UNSP SEVERITY Qualifiers: Diabetic foot ulcer location: unspecified part of foot Diabetes mellitus type: type 2 Laterality: right Non-pressure ulcer stage: unspecified non- pressure ulcer stage Qualified Code(s): E11.621 - Type 2 diabetes mellitus with foot ulcer; L97.519 - Non-pressure chronic ulcer of other part of right foot with unspecified severity
--- NOTE | 2018-01-13 18:19 | PATH ---
Surgical Pathology Report Patient Name: SHELDON ROSA Med. Rec. #: [id number] /Age/Gender: 1955 (Age: 62) / M Account: [id number] Location: [facility] MED/SURG Taken: 01/11/2018 Received: 01/11/2018 Reported: 01/13/2018 Physicians: NADINE Yin M.D. Specimen(s) Received A: BONE BX DISTAL 3RD METATARSAL RIGHT FOOT B: BONE BX PROXIMAL 3RD METATARSAL RIGHT FOOT C: 3RD AND 5TH TOES BONE AND SOFT TISSUE D: 5TH METATARSAL BONE BX Clinical History Third toe osteomyelitis, fifth toe pathologic fracture Final Diagnosis A. BONE, DISTAL 3RD METATARSAL RIGHT FOOT, BIOPSY: PORTION OF BONE WITH ACUTE OSTEOMYELITIS. B. BONE, PROXIMAL 3RD METATARSAL RIGHT FOOT, BIOPSY: PORTION OF BONE WITH REACTIVE CHANGE. NO HISTOLOGIC EVIDENCE OF OSTEOMYELITIS. C. 3RD AND 5TH TOES BONE AND SOFT TISSUE: AMPUTATED OF 3RD AND FIFTH TOES SHOWS SKIN AND SOFT TISSUE WITH FOCAL ACUTE AND CHRONIC INFLAMMATION. BONE FROM TOES, NEGATIVE FOR OSTEOMYELITIS. SEPARATE PORTIONS OF BONE WITH REACTIVE CHANGE. VIABLE SKIN AND SOFT TISSUE MARGINS. D. 5TH METATARSAL BONE, BIOPSY: PORTION OF BONE WITH ACUTE OSTEOMYELITIS. Electronically Signed Mayela Gore M.D. Gross Description A. Received in formalin labeled "bone biopsy distal third metatarsal right foot," is a 1.5 x 1.1 x 0.4 cm whitaker portion of soft tissue and possible bone. The specimen is serially sectioned and entirely submitted in one cassette, following decalcification. B. Received in formalin labeled "bone biopsy proximal third metatarsal right foot," is a 1.0 x 1.0 x 0.9 cm whitaker portion of bone. The specimen is trisected and entirely submitted in one cassette, following decalcification. C. Received in formalin labeled "toes third and fifth and soft tissue and bone right foot," are 2 undesignated toe amputations measuring 3.7 x 2.3 x 1.7 cm and 4.1 x 2.3 x 1.8 cm. The epidermal surface of the smaller toe displays a 0.3 x 0.2 cm whitaker, ulcerated lesion on the dorsal aspect. The lesion is 1.5 cm from the skin and soft tissue margin. The epidermal surface of the larger toe displays a 0.2 cm greatest dimension ulcerated lesion on the dorsal aspect, 2.3 cm from the skin and soft tissue margin. Separately received within the same container are 5 undesignated portions of bone ranging from 1.5-2.0 cm in greatest dimension. [facility] [employer]ist sections are submitted in 8 cassettes as follows: 1-smaller toe lesion with underlying bone, following decalcification; 2-smaller toe bone margin, following decalcification; 3-smaller toe skin and soft tissue margin; 4-larger toe lesion with underlying bone, following decalcification; 5-larger toe bone margin, following decalcification; 6-larger toe skin and soft tissue margin; [id number] separately received portions of bone, following decalcification. D. Received in formalin labeled "fifth metatarsal bone biopsy," is a 1.4 x 0.6 x 0.2 cm whitaker-yellow portion of bone. The specimen is submitted in toto in one cassette, following decalcification. 01/11/2018 [facility]01/11/2018
[2018-01-13] MEDS ORDERED: INSULIN (NOVOLOG) ASPART 100 UNITS/ML 10ML VIAL ONE (20:08)
[2018-01-13] MEDS: INSULIN (LEVEMIR) 100 UNITS/ML UNITS SQ SCH (21:26)
[2018-01-14] MEDS: PIPERACILLIN/TAZOB 4.5 GM 4.5 GM in DEXTROSE 5%-WATER 100 ML IVPB SCH ×2 (01:17→10:11)
[2018-01-14] MEDS: INSULIN SLIDING SCALE (NOVOLOG) 1 VIAL SQ SCH ×3 (06:57→17:13)
[2018-01-14 07:27] LABS: BASO % 1.3 % (0-2.0); EOS % 4.5 % (0-4.5); HEMOGLOBIN 10.7 GM/dL (11.7-16.9); LYMPH % 32.5 % (8-40); MCH 26.7 pg (25.7-33.7); MCHC 32.5 g/dl (32.0-35.9); MEAN CELL VOLUME 82.2 fl (80-96); MEAN PLT VOLUME 7.8 fl (7.5-11.1); MONO % 10.9 % (3.8-10.2); NEUT % 50.8 % (42.8-82.8); PLATELET COUNT 504 K/MM3 (134-434); RBC 4.01 M/mm3 (4.00-5.60); RDW 14.2 % (11.9-15.9); WHITE BLOOD COUNT 7.7 K/mm3 (4.0-10.0)
--- NOTE | 2018-01-14 08:14 | PN ---
Teaching Attending Note Name of Resident: Fernandez Gomez ATTENDING PHYSICIAN STATEMENT I saw and evaluated the patient. I reviewed the resident's note and discussed the case with the resident. I agree with the resident's findings and plan as documented. SUBJECTIVE: Patient is comfortable with no acute distress. OBJECTIVE: Vital Signs Temperature 97.8 F 01/14/18 07:00 Pulse Rate 78 01/14/18 07:00 Respiratory Rate 20 01/14/18 07:00 Blood Pressure 130/64 01/14/18 07:00 O2 Sat by Pulse Oximetry (%) 96 01/13/18 21:00 CBCD WBC 7.7 K/mm3 (4.0-10.0) 01/14/18 07:00 RBC 4.01 M/mm3 (4.00-5.60) 01/14/18 07:00 Hgb 10.7 GM/dL (11.7-16.9) L 01/14/18 07:00 Hct 33.0 % (35.4-49) L 01/14/18 07:00 MCV 82.2 fl (80-96) 01/14/18 07:00 MCHC 32.5 g/dl (32.0-35.9) 01/14/18 07:00 RDW 14.2 % (11.9-15.9) 01/14/18 07:00 Plt Count 504 K/MM3 (134-434) H 01/14/18 07:00 MPV 7.8 fl (7.5-11.1) 01/14/18 07:00 CMP Sodium 135 mmol/L (136-145) L 01/13/18 09:40 Potassium 4.5 mmol/L (3.5-5.1) 01/13/18 09:40 Chloride 101 mmol/L (98-107) 01/13/18 09:40 Carbon Dioxide 29 mmol/L (21-32) 01/13/18 09:40 Anion Gap 5 MMOL/L (8-16) L 01/13/18 09:40 BUN 13 mg/dL (7-18) 01/13/18 09:40 Creatinine 0.8 mg/dL (0.7-1.3) 01/13/18 09:40 Creat Clearance w eGFR > 60 (>60) 01/13/18 09:40 Random Glucose 292 mg/dL (74-106) H D 01/13/18 09:40 Calcium 8.5 mg/dL (8.5-10.1) 01/13/18 09:40 Total Bilirubin 0.3 mg/dL (0.2-1.0) 01/05/18 17:56 AST 10 U/L (15-37) L 01/05/18 17:56 ALT 15 U/L (12-78) 01/05/18 17:56 Alkaline Phosphatase 84 U/L (45-117) 01/05/18 17:56 Total Protein 7.8 g/dl (6.4-8.2) 01/05/18 17:56 Albumin 3.0 g/dl (3.4-5.0) L 01/05/18 17:56 CARDIAC ENZYMES Creatine Kinase 53 IU/L (39-308) 01/05/18 17:56 Troponin I < 0.02 ng/ml (0.00-0.05) 01/05/18 17:56 Home Medications Medication Instructions Recorded Insulin Glargine,Hum.rec.anlog 42 units SQ HS 01/01/18 [Basaglar Kwikpen U-100] Lactobacillus Acidophilus [Bacid -] 1 cap PO BID 01/01/18 Omeprazole Magnesium [Prilosec Otc] 20 mg PO DAILY 01/01/18 Acetaminophen [Tylenol] 650 mg PO Q6H PRN 01/05/18 Ascorbic Acid [Vitamin C] 500 mg PO DAILY 01/05/18 Azelastine HCl 137 mcg NS BID 01/05/18 Cranberry Fruit Extract [Cranberry] 405 mg PO DAILY 01/05/18 Insulin Lispro [Admelog Solostar] 0 unit SQ ASDIR 01/05/18 Mag Hydrox/Al Hydrox/Simeth 30 ml PO Q6H PRN 01/05/18 [Mylanta *Suspension*] Multivitamin [One Daily] 1 each PO DAILY 01/05/18 Current Medications Generic Name Dose Route Start Last Admin Trade Name Freq PRN Reason Stop Dose Admin Acetaminophen 650 mg 01/11/18 12:05 Tylenol - PO Q4H PRN fever Al Hydroxide/Mg Hydroxide 30 ml 01/11/18 12:05 Mylanta Oral Suspension - PO Q6H PRN DYSPEPSIA Ascorbic Acid 500 mg 01/12/18 10:00 01/13/18 10:39 Vitamin C - PO 500 mg DAILY SONI Administration Enoxaparin Sodium 40 mg 01/11/18 15:30 01/13/18 14:18 Lovenox - SQ 40 mg DAILY SONI Administration Guaifenesin 10 ml 01/11/18 12:05 Diabetic Tussin Dm - PO Q6H PRN COUGH Daptomycin 540 mg/ Sodium 50 mls @ 100 mls/hr 01/11/18 13:15 01/13/18 12:18 Chloride IVPB 100 mls/hr DAILY [facility] Administration Protocol Piperacillin Sod/Tazobactam 100 mls @ 200 mls/hr 01/12/18 18:00 01/14/18 01: 17 Sod 4.5 gm/ Dextrose IVPB 200 mls/hr Q8H-IV SONI Administration Protocol Insulin Aspart 1 vial 01/11/18 16:30 01/14/18 06:57 Novolog Vial Sliding Scale - SQ 6 units TIDAC [facility] Administration Protocol Insulin Detemir 35 units 01/11/18 22:00 01/13/18 21:26 Levemir Vial SQ 35 units HS [facility] Administration Ondansetron HCl 4 mg 01/11/18 12:05 01/11/18 12:10 Zofran Injection IVPUSH 4 mg Q6H PRN Administration NAUSEA AND/OR VOMITING Pantoprazole Sodium 20 mg 01/12/18 10:00 01/13/18 10:39 Protonix - PO 20 mg DAILY SONI Administration Promethazine HCl 12.5 mg 01/11/18 12:05 Phenergan Injection - IVPB Q6H PRN NAUSEA-FOR RESCUE AFTER 15 MIN Microbiology 01/11/18 11:05 Bone Gram Stain - Final 01/11/18 11:05 Bone Tissue Culture - Final Mr S Aureus 01/11/18 11:05 Bone Anaerobic Culture - Final NO ANAEROBES WERE ISOLATED 01/11/18 11:05 Bone Gram Stain - Final 01/11/18 11:05 Bone Tissue Culture - Final Staph Hominis Sub Sp Hominis 01/11/18 11:05 Bone Anaerobic Culture - Final NO ANAEROBES WERE ISOLATED 01/11/18 11:05 Bone Gram Stain - Final 01/11/18 11:05 Bone Tissue Culture - Final Mr S Aureus Pseudomonas Aeruginosa 01/11/18 11:05 Bone Anaerobic Culture - Final NO ANAEROBES WERE ISOLATED 01/06/18 06:30 Serum Mycoplasma Antibody - Final 01/06/18 06:30 Serum Mycoplasma Antibody - Final 01/06/18 06:50 Blood - Peripheral Venous Blood Culture - Final NO GROWTH AFTER 5 DAYS INCUBATION 01/06/18 07:18 Blood - Peripheral Venous Blood Culture - Final NO GROWTH AFTER 5 DAYS INCUBATION 01/05/18 19:15 Foot - Right Gram Stain - Final 01/05/18 19:15 Foot - Right Wound Culture - Final Klebsiella Pneumoniae Enterobacter Cloacae Mr S Aureus Enterococcus Faecalis Proteus Vulgaris 01/05/18 20:30 Urine - Urine Clean Catch Urine Culture - Final NO GROWTH OBTAINED 01/06/18 11:00 Urine For Antigen Detection Legionella Antigen - Final 01/06/18 11:00 Urine For Antigen Detection Streptococcus pneumoniae Antigen (M - Final PE: per resident's note ASSESSMENT AND PLAN: Patient is a 62 y/o man with PMHx of DM, right foot osteomyelitis with digit amputations, neuropathy, and chronic right foot ulcers who presented with increased drainage form wounds. # Sepsis due to infected R foot diabetic wounds with evidence of OM in 3rd and 5th metatarsals and 5th ,and 4th proximal phalanx bones s/p debridment and amputation. patient will get a PICC line will continue antibiotic with Meropenem and Vancomycin 1gm q12h, discussed with ID , LAbs on a weekly basis. # DM:cont levemir and cont SSI. # Normocytic Anemia: iron studies indicate ACD # Chronic cough: unclear etiology f/u as out pt discharge patient to rehab.
[2018-01-14 08:17] LABS: CHLORIDE 102 mmol/L (98-107); POTASSIUM 4.3 mmol/L (3.5-5.1); SODIUM 136 mmol/L (136-145)
[2018-01-14 08:28] LABS: ANION GAP 8 MMOL/L (8-16); BLOOD UREA NITROGEN 14 mg/dL (7-18); CALCIUM 8.4 mg/dL (8.5-10.1); CO2 26 mmol/L (21-32); CREATININE 0.9 mg/dL (0.7-1.3); GLUCOSE,RANDOM 273 mg/dL (74-106)
[2018-01-14] MEDS ORDERED: PIPERACILLIN/TAZOBACTAM 4.5 GM VIAL IVPB ONE (09:58)
[2018-01-14] MEDS ORDERED: DEXTROSE 5%-WATER 100 ML IVPB ONE (09:58)
[2018-01-14] MEDS: ASCORBIC ACID 500 MG TABLET (FP) PO SCH (10:10)
[2018-01-14] MEDS: PANTOPRAZOLE 20 MG TABLET (FP) PO SCH (10:11)
[2018-01-14] MEDS: ENOXAPARIN NA (PORCINE) 40 MG/0.4 ML DISP.SYRIN SQ SCH (10:11)
[2018-01-14] MEDS ORDERED: PICC LINE 8 ML FLUSH PROTOCOL IVPUSH PRN (11:17)
[2018-01-14] MEDS ORDERED: INSULIN (NOVOLOG) ASPART 100 UNITS/ML 10ML VIAL ONE (11:23)
[2018-01-14] MEDS ORDERED: VANCOMYCIN 1,000 MG in DEXTROSE 5%-WATER - 250 ML IVPB ONE (12:00)
[2018-01-14] MEDS ORDERED: VANCOMYCIN 1 GM PREMIX - 1 GM/200 ML BAG IVPB ONE (12:20)
[2018-01-14] MEDS: DAPTOMYCIN 540 MG in SODIUM CHLORIDE 50 ML IVPB SCH (14:52)
--- NOTE | 2018-01-14 15:50 | DS ---
Physical Exam: SUBJECTIVE: Patient seen and examined at bedside. No acute complaints. Pain controlled. Denies n/v/c/d, denies f/c. OBJECTIVE: Vital Signs Period Temp Pulse Resp BP Sys/Campos Pulse Ox Last 24 Hr 97.8 F-98.5 F 73-80 18-20 122-147/64-76 96 PHYSICAL EXAM A&Ox3, NAD. Otherwise refuses physical examination. LABS Laboratory Results - last 24 hr 01/13/18 01/13/18 01/14/18 17:11 21:22 06:55 WBC RBC Hgb Hct MCV MCH MCHC RDW Plt Count MPV Absolute Neuts (auto) Neutrophils % Lymphocytes % Monocytes % Eosinophils % Basophils % Nucleated RBC % Sodium Potassium Chloride Carbon Dioxide Anion Gap BUN Creatinine Creat Clearance w eGFR POC Glucometer 237 288 287 Random Glucose Calcium 01/14/18 01/14/18 07:00 07:00 WBC 7.7 RBC 4.01 Hgb 10.7 L Hct 33.0 L MCV 82.2 MCH 26.7 MCHC 32.5 RDW 14.2 Plt Count 504 H MPV 7.8 Absolute Neuts (auto) 3.9 Neutrophils % 50.8 Lymphocytes % 32.5 Monocytes % 10.9 H Eosinophils % 4.5 Basophils % 1.3 Nucleated RBC % 0 Sodium 136 Potassium 4.3 Chloride 102 Carbon Dioxide 26 Anion Gap 8 BUN 14 Creatinine 0.9 Creat Clearance w eGFR > 60 POC Glucometer Random Glucose 273 H Calcium 8.4 L HOSPITAL COURSE: Date of Admission:01/05/18 Patient is a 62 y/o M w/ PMHx uncontrolled DM, R foot ulcers s/p 3 toe amputation in 2015 due to osteomyelitis, admitted for sepsis (temperature to 101 , WBC 13.3) 2/2 to a purulently draining R lateral foot ulcer. dditionally c/o shortness of breath, cough, and chills. WBC 13.3 and foot xray showed bony destruction suggestive of osteomyelitis. EKG showed possible PVCs. ID, podiatry , vascular surgery, and cardiology were consulted. Initial ABx were Vancomycin and Zosyn, however the patient developed a flushing reaction to Vancomycin. MRI confirmed extensive osteomyelitis in the right foot, in particular at the 3rd and 5th metatarsals. ABx was switched to Ertapenem/Daptomycin for patient comfort. Patient underwent surgical debridement and amputation of the 3rd and 5th rays of the right foot on 01/11/18. IV ABx continued. His condition stabilized and he was comfortable. Bone cultures grew MRSA and Pseudomonas, and Ertapenem was replaced by Zosyn. He completed 7 days IV ABx while hospitalized. On 01/14/18, Patient was discharged to SNF for rehabilitation and a further 5 weeks of IV ABx consisting of Vancomycin (to be run over minimum 2 hours) and Meropenem. Date of Discharge: 01/14/18 Minutes to complete discharge: 40 Discharge Summary Reason For Visit: FEVER,DIABETIC FOOT ULCER,COUGH Current Active Problems Cough (Acute) Diabetic foot ulcers (Acute) Fever (Acute) [place] cardiac risk >20% in next 10 years (Acute) Hyperlipidemia (Acute) Osteomyelitis (Acute) Condition: Stable - Instructions Diet, Activity, Other Instructions: You were hospitalized due to an infection of the bones of your foot called osteomyelitis. You were treated with IV antibiotics and surgery to remove the infected bones. You are being discharged to a [facility] facility to undergo several more weeks of IV antibiotics, which are necessary to prevent recurrence of the infection. Referrals You are being scheduled for follow up with your surgeon, Dr. Champion within one week of discharge. Please keep this appointment. You are being scheduled for follow up with the infectious disease specialist, Dr. Robin, within one week of discharge. Please keep this appointment. You should additional schedule a followup appointment with your primary care provider within one week of discharge. Medications/medical recommendations You should resume your home medications as prescribed upon discharge. Additionally, you will undergo a further 5 weeks of IV antibiotics to treat your bone infection. These will be provided to you by the facility. For the facility IV Antibiotics to be given: -Meropenem 1g Q8H x 35 days -Vancomycin 1g Q12H x 35 days -Please always run Vancomycin over 2 hours -Peak and trough Vancomycin after 4th dose and adjust dose accordingly -Please call Dr. Robin or Dr. Mckeon with any questions -CBC/CMP Weekly If you experience any new pain or ulcerations in your feet, any new chest pain, shortness of breath, or any other new symptoms, please return to the Emergency Department immediately. Referrals: Jose Luis Robin MD [Staff Physician] - 1 Week Stepanian,Berdj, DPM [Staff Physician] - 1 Week Disposition: ASSISTED FACILITY - Home Medications Comprehensive Discharge Medication List: Ambulatory Orders Insulin Glargine,Hum.rec.anlog [Basaglar Kwikpen U-100] 42 units SQ HS 01/01/18 Lactobacillus Acidophilus [Bacid -] 1 cap PO BID 01/01/18 Omeprazole Magnesium [Prilosec Otc] 20 mg PO DAILY 01/01/18 Acetaminophen [Tylenol] 650 mg PO Q6H PRN 01/05/18 Ascorbic Acid [Vitamin C] 500 mg PO DAILY 01/05/18 Azelastine HCl 137 mcg NS BID 01/05/18 Cranberry Fruit Extract [Cranberry] 405 mg PO DAILY 01/05/18 Insulin Lispro [Admelog Solostar] 0 unit SQ ASDIR 01/05/18 Multivitamin [One Daily] 1 each PO DAILY 01/05/18 Enoxaparin [Lovenox -] 40 mg SQ DAILY disp.syrin 01/14/18 Enoxaparin [Lovenox -] 40 mg SQ DAILY disp.syrin 01/14/18 Meropenem [Merrem (Restricted To Id) -] 1 gm IVPB Q8H-IV vial 01/14/18 Picc Line Flush [Picc Line Flush -] 8 ml IVPUSH PRN PRN ml 01/14/18 Vancomycin 1,000 mg GT Q12H 35 Days vial 01/14/18 This patient is new to me today: No Emergency Visit: No Critical Care patient: No - Discharge Referral Referred to [facility] No
[2018-01-14] MEDS ORDERED: PT OWN MED DRAWER 7, Y5N ONE (17:23)
[2018-01-14] MEDS: MEROPENEM 1 GM in DEXTROSE 5%-WATER - 100 ML IVPB SCH (17:28)
--- NOTE | 2018-01-14 17:40 | PN ---
Progress Note (short form) - Note Progress Note: POD#3. No pain. VSS. Tmax 98.0 +dressing intact, -mal odor, -drainage, wbc=7.7 om normal post op Dressing changed. Betadine dressing applied forefoot, santyl right heel. will follow. Post op shoe to both feet. Patient to go to rehab. Will follow till dc xray reviewed. Problem List - Problems (1) Diabetic foot ulcers Code(s): E11.621 - TYPE 2 DIABETES MELLITUS WITH FOOT ULCER; L97.509 - NON- PRESSURE CHRONIC ULCER OTH PRT UNSP FOOT W UNSP SEVERITY Qualifiers: Diabetic foot ulcer location: unspecified part of foot Diabetes mellitus type: type 2 Laterality: right Non-pressure ulcer stage: unspecified non- pressure ulcer stage Qualified Code(s): E11.621 - Type 2 diabetes mellitus with foot ulcer; L97.519 - Non-pressure chronic ulcer of other part of right foot with unspecified severity
[2018-01-14] MEDS: INSULIN (LEVEMIR) 100 UNITS/ML UNITS SQ SCH (22:34)
[2018-01-15] MEDS ORDERED: PT OWN MED DRAWER 7, Y5N ONE ×2 (02:49→08:57)
[2018-01-15] MEDS: MEROPENEM 1 GM in DEXTROSE 5%-WATER - 100 ML IVPB SCH ×2 (02:55→09:10)
[2018-01-15] MEDS: INSULIN SLIDING SCALE (NOVOLOG) 1 VIAL SQ SCH ×2 (06:30→14:00)
--- NOTE | 2018-01-15 08:15 | PN ---
Teaching Attending Note Name of Resident: Fernandez Gomez ATTENDING PHYSICIAN STATEMENT I saw and evaluated the patient. I reviewed the resident's note and discussed the case with the resident. I agree with the resident's findings and plan as documented. SUBJECTIVE: OBJECTIVE: Vital Signs Temperature 98 F 01/15/18 06:00 Pulse Rate 88 01/15/18 06:00 Respiratory Rate 20 01/15/18 06:00 Blood Pressure 140/80 01/15/18 06:00 O2 Sat by Pulse Oximetry (%) 96 01/14/18 21:00 CBCD WBC 7.7 K/mm3 (4.0-10.0) 01/14/18 07:00 RBC 4.01 M/mm3 (4.00-5.60) 01/14/18 07:00 Hgb 10.7 GM/dL (11.7-16.9) L 01/14/18 07:00 Hct 33.0 % (35.4-49) L 01/14/18 07:00 MCV 82.2 fl (80-96) 01/14/18 07:00 MCHC 32.5 g/dl (32.0-35.9) 01/14/18 07:00 RDW 14.2 % (11.9-15.9) 01/14/18 07:00 Plt Count 504 K/MM3 (134-434) H 01/14/18 07:00 MPV 7.8 fl (7.5-11.1) 01/14/18 07:00 CMP Sodium 136 mmol/L (136-145) 01/14/18 07:00 Potassium 4.3 mmol/L (3.5-5.1) 01/14/18 07:00 Chloride 102 mmol/L (98-107) 01/14/18 07:00 Carbon Dioxide 26 mmol/L (21-32) 01/14/18 07:00 Anion Gap 8 MMOL/L (8-16) 01/14/18 07:00 BUN 14 mg/dL (7-18) 01/14/18 07:00 Creatinine 0.9 mg/dL (0.7-1.3) 01/14/18 07:00 Creat Clearance w eGFR > 60 (>60) 01/14/18 07:00 Random Glucose 273 mg/dL (74-106) H 01/14/18 07:00 Calcium 8.4 mg/dL (8.5-10.1) L 01/14/18 07:00 Total Bilirubin 0.3 mg/dL (0.2-1.0) 01/05/18 17:56 AST 10 U/L (15-37) L 01/05/18 17:56 ALT 15 U/L (12-78) 01/05/18 17:56 Alkaline Phosphatase 84 U/L (45-117) 01/05/18 17:56 Total Protein 7.8 g/dl (6.4-8.2) 01/05/18 17:56 Albumin 3.0 g/dl (3.4-5.0) L 01/05/18 17:56 CARDIAC ENZYMES Creatine Kinase 53 IU/L (39-308) 01/05/18 17:56 Troponin I < 0.02 ng/ml (0.00-0.05) 01/05/18 17:56 Current Medications Generic Name Dose Route Start Last Admin Trade Name Freq PRN Reason Stop Dose Admin Acetaminophen 650 mg 01/11/18 12:05 Tylenol - PO Q4H PRN fever Al Hydroxide/Mg Hydroxide 30 ml 01/11/18 12:05 Mylanta Oral Suspension - PO Q6H PRN DYSPEPSIA Ascorbic Acid 500 mg 01/12/18 10:00 01/14/18 10:10 Vitamin C - PO 500 mg DAILY SONI Administration Enoxaparin Sodium 40 mg 01/11/18 15:30 01/14/18 10:11 Lovenox - SQ 40 mg DAILY SONI Administration Guaifenesin 10 ml 01/11/18 12:05 Diabetic Tussin Dm - PO Q6H PRN COUGH IV Flush 8 ml 01/14/18 11:17 Picc Line Flush IVPUSH PRN PRN Protocol Meropenem 1 gm/ Dextrose 100 mls @ 100 mls/hr 01/15/18 18:00 IVPB Q8H-IV SONI Meropenem 1 gm/ Dextrose 100 mls @ 100 mls/hr 01/14/18 18:00 01/15/18 02:55 IVPB 01/15/18 10:59 100 mls/hr Q8H-IV SONI Administration Insulin Aspart 1 vial 01/11/18 16:30 01/15/18 06:30 Novolog Vial Sliding Scale - SQ 6 units TIDAC SONI Administration Protocol Insulin Detemir 35 units 01/11/18 22:00 01/14/18 22:34 Levemir Vial SQ 35 units HS SONI Administration Ondansetron HCl 4 mg 01/11/18 12:05 01/11/18 12:10 Zofran Injection IVPUSH 4 mg Q6H PRN Administration NAUSEA AND/OR VOMITING Pantoprazole Sodium 20 mg 01/12/18 10:00 01/14/18 10:11 Protonix - PO Not Given DAILY SONI Promethazine HCl 12.5 mg 01/11/18 12:05 Phenergan Injection - IVPB Q6H PRN NAUSEA-FOR RESCUE AFTER 15 MIN Home Medications Medication Instructions Recorded Insulin Glargine,Hum.rec.anlog 42 units SQ HS 01/01/18 [Basaglar Kwikpen U-100] Lactobacillus Acidophilus [Bacid -] 1 cap PO BID 01/01/18 Omeprazole Magnesium [Prilosec Otc] 20 mg PO DAILY 01/01/18 Acetaminophen [Tylenol] 650 mg PO Q6H PRN 01/05/18 Ascorbic Acid [Vitamin C] 500 mg PO DAILY 01/05/18 Azelastine HCl 137 mcg NS BID 01/05/18 Cranberry Fruit Extract [Cranberry] 405 mg PO DAILY 01/05/18 Insulin Lispro [Admelog Solostar] 0 unit SQ ASDIR 01/05/18 Multivitamin [One Daily] 1 each PO DAILY 01/05/18 Enoxaparin [Lovenox -] 40 mg SQ DAILY disp.syrin 01/14/18 Enoxaparin [Lovenox -] 40 mg SQ DAILY disp.syrin 01/14/18 Meropenem [Merrem (Restricted To 1 gm IVPB Q8H-IV vial 01/14/18 Id) -] Picc Line Flush [Picc Line Flush -] 8 ml IVPUSH PRN PRN ml 01/14/18 Vancomycin 1,000 mg GT Q12H 35 Days vial 01/14/18 PE: per resident's note ASSESSMENT AND PLAN: Patient is a 62 y/o man with PMHx of DM, right foot osteomyelitis with digit amputations, neuropathy, and chronic right foot ulcers who presented with increased drainage form wounds. # Sepsis due to infected R foot diabetic wounds with evidence of OM in 3rd and 5th metatarsals and 5th ,and 4th proximal phalanx bones s/p debridment and amputation. patient is s/p PICC line for IV antibiotic to continue Meropenem and Vancomycin 1gm q12h, for total of 6 weeks, 5weeks/6 weeks left , discussed with ID , LAbs on a weekly basis. # DM:cont levemir and cont SSI. # Normocytic Anemia: iron studies indicate ACD # Chronic cough: unclear etiology f/u as out pt discharge patient to rehab.
[2018-01-15] MEDS: ENOXAPARIN NA (PORCINE) 40 MG/0.4 ML DISP.SYRIN SQ SCH (09:10)
[2018-01-15] MEDS: ASCORBIC ACID 500 MG TABLET (FP) PO SCH (09:10)
[2018-01-15] MEDS: PANTOPRAZOLE 20 MG TABLET (FP) PO SCH (09:10)
--- NOTE | 2018-01-15 09:37 | PN ---
Progress Note, Physician Chief Complaint: Pt A&Ox3; no complaints. History of Present Illness: Patient is a 62 year old male with a significant past medical history of IDDM and neuropathy who presents to the ED with complaints of chronic right lower extremity foot wounds that began to develop earlier this month. Patient reports experiencing chronic wound on his right foot that he states has been gradually increasing in warmth and erythema over time prompting him to go to the wound care center for it. He reports wound care center advising him to come into the ED for further evaluation of the extremity. Patient reports experiencing associated symptoms of low grade fever of 100.2 and non productive cough. Denies chest pain, Sob. Denies nausea, vomiting. Denies fevers, chills. Denies Contact with sick individuals, out of state travelling. Denies dysuria, hematuria. Denies constipation, diarrhea. Denies any other Allergies: None Social history: No smoking. No alcohol. No illicit drugs. Surgical history: None PMD: None - Current Medication List Current Medications: Active Medications Acetaminophen (Tylenol -) 650 mg PO Q4H PRN PRN Reason: fever Al Hydroxide/Mg Hydroxide (Mylanta Oral Suspension -) 30 ml PO Q6H PRN PRN Reason: DYSPEPSIA Ascorbic Acid (Vitamin C -) 500 mg PO DAILY [facility] Last Admin: 01/15/18 09:10 Dose: 500 mg Enoxaparin Sodium (Lovenox -) 40 mg SQ DAILY [facility] Last Admin: 01/15/18 09:10 Dose: 40 mg Guaifenesin (Diabetic Tussin Dm -) 10 ml PO Q6H PRN PRN Reason: COUGH IV Flush (Picc Line Flush) 8 ml IVPUSH PRN PRN PRN Reason: Protocol Last Admin: 01/14/18 18:00 Dose: 8 ml Meropenem 1 gm/ Dextrose 100 mls @ 100 mls/hr IVPB Q8H-IV SONI Meropenem 1 gm/ Dextrose 100 mls @ 100 mls/hr IVPB Q8H-IV SONI Stop: 01/15/18 10:59 Last Admin: 01/15/18 09:10 Dose: 100 mls/hr Insulin Aspart (Novolog Vial Sliding Scale -) 1 vial SQ TIDAC [facility]; Protocol Last Admin: 01/15/18 06:30 Dose: 6 units Insulin Detemir (Levemir Vial) 35 units SQ HS [facility] Last Admin: 01/14/18 22:34 Dose: 35 units Ondansetron HCl (Zofran Injection) 4 mg IVPUSH Q6H PRN PRN Reason: NAUSEA AND/OR VOMITING Last Admin: 01/11/18 12:10 Dose: 4 mg Pantoprazole Sodium (Protonix -) 20 mg PO DAILY [facility] Last Admin: 01/15/18 09:10 Dose: Not Given Promethazine HCl (Phenergan Injection -) 12.5 mg IVPB Q6H PRN PRN Reason: NAUSEA-FOR RESCUE AFTER 15 MIN - Objective Vital Signs: Vital Signs Temperature 98 F 01/15/18 06:00 Pulse Rate 88 01/15/18 06:00 Respiratory Rate 20 01/15/18 06:00 Blood Pressure 140/80 01/15/18 06:00 O2 Sat by Pulse Oximetry (%) 96 01/14/18 21:00 Constitutional: Yes: Calm Eyes: Yes: WNL HENT: Yes: WNL Neck: Yes: WNL Cardiovascular: Yes: WNL Respiratory: Yes: WNL Gastrointestinal: Yes: Soft ...Rectal Exam: Yes: Deferred Genitourinary: No: Anuria Musculoskeletal: Yes: Muscle Weakness Extremities: Yes: Cool Edema: No Peripheral Pulses WNL: No Peripheral Pulses: Left Doralis Pedis: 1+, Right Dorsalis Pedis: 1+ Labs: CBC, BMP 01/14/18 07:00 01/14/18 07:00 INR, PTT INR 1.16 (0.83-1.09) H 01/05/18 17:56 Problem List - Problems (1) Diabetic foot ulcers Assessment/Plan: f/u with vasular surgeon, infectious keisha FOURNIER. Code(s): E11.621 - TYPE 2 DIABETES MELLITUS WITH FOOT ULCER; L97.509 - NON- PRESSURE CHRONIC ULCER OTH PRT UNSP FOOT W UNSP SEVERITY Qualifiers: Diabetic foot ulcer location: unspecified part of foot Diabetes mellitus type: type 2 Laterality: right Non-pressure ulcer stage: unspecified non- pressure ulcer stage Qualified Code(s): E11.621 - Type 2 diabetes mellitus with foot ulcer; L97.519 - Non-pressure chronic ulcer of other part of right foot with unspecified severity (2) Fever Code(s): R50.9 - FEVER, UNSPECIFIED Qualifiers: Fever type: unspecified Qualified Code(s): R50.9 - Fever, unspecified (3) Osteomyelitis Code(s): M86.9 - OSTEOMYELITIS, UNSPECIFIED (4) Hyperlipidemia Assessment/Plan: If possible, start statin to keep LDL cholesterol < 70 mg/dL (pt is also on daptomycin, which may be a relative contraindication). Code(s): E78.5 - HYPERLIPIDEMIA, UNSPECIFIED (5) [place] cardiac risk >20% in next 10 years Assessment/Plan: Statin, unless contraindicated (pt is presently on daptomycin) to keep LDL cholesterol well below 70 mg/dL. When stable, will need stress MIBI, unless done in the recent past. Code(s): Z91.89 - OTH PERSONAL RISK FACTORS, NOT ELSEWHERE CLASSIFIED
[2018-01-15 10:37] VITALS: BP 130/60; PULSE 90; TEMP 97.6
--- NOTE | 2018-01-15 11:00 | PN ---
Progress Note, Physician History of Present Illness: Patient is a 62 year old male with a significant past medical history of IDDM and neuropathy who presents to the ED with complaints of chronic right lower extremity foot wounds that began to develop earlier this month. Patient reports experiencing chronic wound on his right foot that he states has been gradually increasing in warmth and erythema over time prompting him to go to the wound care center for it. He reports wound care center advising him to come into the ED for further evaluation of the extremity. Patient reports experiencing associated symptoms of low grade fever of 100.2 and non productive cough. Denies chest pain, Sob. Denies nausea, vomiting. Denies fevers, chills. Denies Contact with sick individuals, out of state travelling. Denies dysuria, hematuria. Denies constipation, diarrhea. Denies any other Allergies: None Social history: No smoking. No alcohol. No illicit drugs. Surgical history: None PMD: None - Current Medication List Current Medications: Active Medications Acetaminophen (Tylenol -) 650 mg PO Q4H PRN PRN Reason: fever Al Hydroxide/Mg Hydroxide (Mylanta Oral Suspension -) 30 ml PO Q6H PRN PRN Reason: DYSPEPSIA Ascorbic Acid (Vitamin C -) 500 mg PO DAILY [facility] [place] Last Admin: 01/15/18 09:10 Dose: 500 mg Enoxaparin Sodium (Lovenox -) 40 mg SQ DAILY [facility] [place] Last Admin: 01/15/18 09:10 Dose: 40 mg Guaifenesin (Diabetic Tussin Dm -) 10 ml PO Q6H PRN PRN Reason: COUGH IV Flush (Picc Line Flush) 8 ml IVPUSH PRN PRN PRN Reason: Protocol Last Admin: 01/14/18 18:00 Dose: 8 ml Meropenem 1 gm/ Dextrose 100 mls @ 100 mls/hr IVPB Q8H-IV SONI Insulin Aspart (Novolog Vial Sliding Scale -) 1 vial SQ TIDAC [facility] [place]; Protocol Last Admin: 01/15/18 06:30 Dose: 6 units Insulin Detemir (Levemir Vial) 35 units SQ HS [facility] [place] Last Admin: 01/14/18 22:34 Dose: 35 units Ondansetron HCl (Zofran Injection) 4 mg IVPUSH Q6H PRN PRN Reason: NAUSEA AND/OR VOMITING Last Admin: 01/11/18 12:10 Dose: 4 mg Pantoprazole Sodium (Protonix -) 20 mg PO DAILY [facility]ONI Last Admin: 01/15/18 09:10 Dose: Not Given Promethazine HCl (Phenergan Injection -) 12.5 mg IVPB Q6H PRN PRN Reason: NAUSEA-FOR RESCUE AFTER 15 MIN - Objective Vital Signs: Vital Signs Temperature 97.6 F 01/15/18 10:00 Pulse Rate 90 01/15/18 10:00 Respiratory Rate 20 01/15/18 10:00 Blood Pressure 130/60 01/15/18 10:00 O2 Sat by Pulse Oximetry (%) 96 01/14/18 21:00 Eyes: Yes: WNL, Conjunctiva Clear, EOM Intact HENT: Yes: WNL, Atraumatic, Normocephalic Neck: Yes: WNL, Supple, Trachea Midline Cardiovascular: Yes: WNL, Regular Rate and Rhythm Respiratory: Yes: WNL, Regular, CTA Bilaterally Gastrointestinal: Yes: WNL, Normal Bowel Sounds Genitourinary: Yes: WNL Musculoskeletal: Yes: WNL Extremities: Yes: Amputation Edema: No Integumentary: Yes: WNL Neurological: Yes: WNL, Alert, Oriented ...Motor Strength: WNL Psychiatric: Yes: WNL Labs: CBC, BMP 01/14/18 07:00 01/14/18 07:00 INR, PTT INR 1.16 (0.83-1.09) H 01/05/18 17:56 Assessment/Plan - Problems (1) Diabetic foot ulcers Assessment/Plan: f/u with vasular surgeon, infectious keisha FOURNIER. Code(s): E11.621 - TYPE 2 DIABETES MELLITUS WITH FOOT ULCER; L97.509 - NON- PRESSURE CHRONIC ULCER OTH PRT UNSP FOOT W UNSP SEVERITY Qualifiers: Diabetic foot ulcer location: unspecified part of foot Diabetes mellitus type: type 2 Laterality: right Non-pressure ulcer stage: unspecified non- pressure ulcer stage Qualified Code(s): E11.621 - Type 2 diabetes mellitus with foot ulcer; L97.519 - Non-pressure chronic ulcer of other part of right foot with unspecified severity (2) Fever Code(s): R50.9 - FEVER, UNSPECIFIED Qualifiers: Fever type: unspecified Qualified Code(s): R50.9 - Fever, unspecified (3) Osteomyelitis Code(s): M86.9 - OSTEOMYELITIS, UNSPECIFIED (4) Hyperlipidemia Assessment/Plan: If possible, start statin to keep LDL cholesterol < 70 mg/dL (pt is also on daptomycin, which may be a relative contraindication). Code(s): E78.5 - HYPERLIPIDEMIA, UNSPECIFIED (5) [place] cardiac risk >20% in next 10 years Assessment/Plan: Statin, unless contraindicated (pt is presently on daptomycin) to keep LDL cholesterol well below 70 mg/dL. When stable, will need stress MIBI, unless done in the recent past. Code(s): Z91.89 - OTH PERSONAL RISK FACTORS, NOT ELSEWHERE CLASSIFIED
--- NOTE | 2018-01-15 12:24 | DS ---
Physical Exam: SUBJECTIVE: Patient was discharged yesterday but did not leave due to administrative coordination problem with receiving facility. Has left as of this AM. Status unchanged vs. yesterday, please refer to prior discharge summary for all information. OBJECTIVE: Vital Signs Period Temp Pulse Resp BP Sys/Campos Pulse Ox Last 24 Hr 97.6 F-98.1 F 77-90 18-20 122-154/60-83 96 PHYSICAL EXAM GENERAL: The patient is awake, alert, and fully oriented, in no acute distress. HEAD: Normal with no signs of trauma. EYES: PERRL, extraocular movements intact, sclera anicteric, conjunctiva clear. ENT: Ears normal, nares patent, oropharynx clear without exudates, moist mucous membranes. NECK: Trachea midline, full range of motion, supple. LUNGS: Breath sounds equal, clear to auscultation bilaterally, no wheezes, no crackles, no accessory muscle use. HEART: Regular rate and rhythm, S1, S2 without murmur, rub or gallop. ABDOMEN: Soft, nontender, nondistended, normoactive bowel sounds, no guarding, no rebound, no hepatosplenomegaly, no masses. EXTREMITIES: 2+ pulses, warm, well-perfused, no edema. NEUROLOGICAL: Cranial nerves II through XII grossly intact. Normal speech, gait not observed. PSYCH: Normal mood, normal affect. SKIN: Warm, dry, normal turgor, no rashes or lesions noted. LABS Laboratory Results - last 24 hr 01/14/18 01/15/18 17:12 06:26 POC Glucometer 280 268 HOSPITAL COURSE: Date of Admission:01/05/18 Date of Discharge: 01/15/18 Minutes to complete discharge: 40 Discharge Summary Reason For Visit: FEVER,DIABETIC FOOT ULCER,COUGH Condition: Stable - Instructions Diet, Activity, Other Instructions: You were hospitalized due to an infection of the bones of your foot called osteomyelitis. You were treated with IV antibiotics and surgery to remove the infected bones. You are being discharged to a snf facility to undergo several more weeks of IV antibiotics, which are necessary to prevent recurrence of the infection. Referrals You are being scheduled for follow up with your surgeon, Dr. Champion within one week of discharge. Please keep this appointment. You are being scheduled for follow up with the infectious disease specialist, Dr. Robin, within one week of discharge. Please keep this appointment. You should additional schedule a followup appointment with your primary care provider within one week of discharge. Medications/medical recommendations You should resume your home medications as prescribed upon discharge. Additionally, you will undergo a further 5 weeks of IV antibiotics to treat your bone infection. These will be provided to you by the facility. For the facility IV Antibiotics to be given: -Meropenem 1g Q8H x 35 days -Vancomycin 1g Q12H x 35 days -Please always run Vancomycin over 2 hours -Peak and trough Vancomycin after 4th dose and adjust dose accordingly -Please call Dr. Robin or Dr. Mckeon with any questions -CBC/CMP Weekly If you experience any new pain or ulcerations in your feet, any new chest pain, shortness of breath, or any other new symptoms, please return to the Emergency Department immediately. Referrals: Jose Luis Robin MD [Staff Physician] - 1 Week Mert Champion DPM [Staff Physician] - 1 Week Disposition: [facility] - Home Medications Comprehensive Discharge Medication List: Ambulatory Orders Insulin Glargine,Hum.rec.anlog [Basaglar Kwikpen U-100] 42 units SQ HS 01/01/18 Lactobacillus Acidophilus [Bacid -] 1 cap PO BID 01/01/18 Omeprazole Magnesium [Prilosec Otc] 20 mg PO DAILY 01/01/18 Acetaminophen [Tylenol] 650 mg PO Q6H PRN 01/05/18 Ascorbic Acid [Vitamin C] 500 mg PO DAILY 01/05/18 Azelastine HCl 137 mcg NS BID 01/05/18 Cranberry Fruit Extract [Cranberry] 405 mg PO DAILY 01/05/18 Insulin Lispro [Admelog Solostar] 0 unit SQ ASDIR 01/05/18 Multivitamin [One Daily] 1 each PO DAILY 01/05/18 Enoxaparin [Lovenox -] 40 mg SQ DAILY disp.syrin 01/14/18 Enoxaparin [Lovenox -] 40 mg SQ DAILY disp.syrin 01/14/18 Meropenem [Merrem (Restricted To Id) -] 1 gm IVPB Q8H-IV vial 01/14/18 Picc Line Flush [Picc Line Flush -] 8 ml IVPUSH PRN PRN ml 01/14/18 Vancomycin 1,000 mg GT Q12H 35 Days vial 01/14/18 This patient is new to me today: No Emergency Visit: No Critical Care patient: No - Discharge Referral Referred to [facility] Med [facility] No
[2018-01-15] MEDS ORDERED: MEROPENEM 1 GM in DEXTROSE 5%-WATER 100 ML IVPB SCH (18:00)
== END 2018-01-15 11:51 | DRG 710 ==
LOC: JER 17:22 → JERBED 23:04 → J4W 01-06 01:17 → J8W 01-07 20:43
PROVIDERS: ADMIT Internal Medicine; ATTEND Internal Medicine
PROC: 0QBQ0ZZ Excision of Right Toe Phalanx, Open Approach (ICD-10-PCS; 2018-01-11)
PROC: 0Y6X0Z2 Detachment at Right 5th Toe, Mid, Open Approach (ICD-10-PCS; principal; 2018-01-11 09:30)
PROC: 0Y6T0Z2 Detachment at Right 3rd Toe, Mid, Open Approach (ICD-10-PCS; 2018-01-11 09:30)
PROC: 02HV33Z Insertion of Infusion Device into Superior Vena Cava, Percutaneous Approach (ICD-10-PCS; 2018-01-14)
DX: A41.9 Sepsis, unspecified organism (principal); M86.9 Osteomyelitis, unspecified; E11.69 Type 2 diabetes mellitus with other specified complication; D64.9 Anemia, unspecified; E11.40 Type 2 diabetes mellitus with diabetic neuropathy, unspecified; E11.621 Type 2 diabetes mellitus with foot ulcer; E88.09 Other disorders of plasma-protein metabolism, not elsewhere classified; L97.519 Non-pressure chronic ulcer of other part of right foot with unspecified severity; E78.5 Hyperlipidemia, unspecified; R05 Cough; R00.0 Tachycardia, unspecified
CPT/HCPCS: 36415; 36569; 71046-TC-FY; 73630-TC-RT-FY; 73718-TC; 73721-RT-TC; 75820-TC-FY; 77001-TC-FY; 80048; 80053; 80061; 81003; 82272; 82550; 82728; 82962; 83540; 83550; 83605; 83721; 83735; 84100; 84443; 84484; 85025; 85027; 85044; 85610; 85651; 86140; 86157; 86738; 86850; 86900; 86901; 87040; 87070; 87075; 87086; 87186; 87205; 87389; 87899; 88304-TC; 88305-TC; 88311-TC; 93005; 93010; 93306-TC; 93971-TC; 94760; 97116-GP; 97161-GP; 99285-25; C1751; G0277; G0480; J0878; J7030